=== PATIENT | female | born 1940 | race Caucasian/White ===

== ENCOUNTER 2018-11-25 16:51 | Inpatient (IN) ==
[2018-11-25] MEDS ORDERED: LEVAQUIN 750 MG/D5W 750 MG/150 ML IVPB IV ONE (18:08)
[2018-11-25] MEDS ORDERED: NS 1,000 ML IV ONE (18:08)
[2018-11-25] MEDS ORDERED: VANCOMYCIN 1 GM/NS 1 GM/250 ML IVPB IV ONE (18:08)
[2018-11-25] MEDS ORDERED: ZOSYN 3.375 GM in NS 50 ML IV ONE (18:08)
[2018-11-25] MEDS ORDERED: DUONEB (A & A) INH ONE (18:08)
[2018-11-25] MEDS ORDERED: SOLU-MEDROL IV ONE (18:09)
--- NOTE | 2018-11-25 18:30 | PROVIDER DOCUMENTATION ---
This chart was entered by Tomas Lin Scribe, acting as scribe for Behzad Calle MD. HPI-Respiratory General - General Chief Complaint: Cough Stated Complaint: COUGHING,RT LUNG PAIN Time Seen by Provider: 11/25/18 17:25 Source: patient Allergies/Adverse Reactions: Patient Allergies Allergy/AdvReac Type Severity Reaction Status Date / Time naproxen [From Aleve] Allergy Severe comatose Verified 01/27/18 22:33 Home Medications: Home Medication List Medication Instructions Recorded Confirmed Last Taken Type ROSUVAstatin [Crestor] 10 mg PO DAILY 08/28/17 10/04/18 02/05/18 02:00 History 10 Letrozole 1 tab PO DAILY 04/21/18 10/04/18 04/20/18 09:00 History Escitalopram [Lexapro] 10 mg PO DAILY 09/29/18 10/04/18 Unknown History BENAZEpril [Lotensin] 10 mg PO BID tablet 10/02/18 10/04/18 Unknown Rx Guaifenesin/Dm E.r. [Mucinex Dm] 1 each PO BID tablet 10/02/18 10/04/18 Unknown Rx Acetaminophen [Tylenol] 650 mg PO Q6H PRN PRN tablet 10/08/18 Unknown Rx Acetylcysteine 20% [Mucomyst 20%] 3 ml INH RTBID 14 Days vial 10/08/18 Unknown Rx Albuterol 2.5MG/Ipratrop 0.5MG 3 ml INH RTQ6H neb 10/08/18 Unknown Rx [Duoneb (A & A)] Baclofen 10 mg PO TID #0 10/08/18 10/04/18 Unknown Rx Enoxaparin [Lovenox] 30 mg SUBQ Q24H #3 syringe 10/08/18 Unknown Rx Gabapentin 300 mg PO BID #60 10/08/18 10/04/18 Unknown Rx Prednisone 15 mg PO DAILY tablet 10/08/18 Unknown Rx Sitagliptin [Januvia] 100 mg PO DAILY tablet 10/08/18 Unknown Rx - History of Present Illness-Resp Nature of Presenting Problem: Pt is a 78 y/o F comes to the ED from Dr Rendon with failed outpatient treatment for pneumonia. Pt has been taking doxycycline. She was hospitalized 2 months ago for pneumonia. Pt reports she had a CT of chest today and sent from outpatient CT to the ED for admission. Pt reports a cough and fever. She reports a hx of breast cancer but reports she is cancer free. She aslo reports a ECHO by Dr Fu done the day before. Quality of Pain: reports: aching Severity in ED: reports: moderate Onset/Duration: reports: gradual Timing: reports: still present Cough Quality/Degree: reports: productive cough Episode Frequency: no prior episodes Current Respiratory Medication Therapy: Initiated see nurses note Modifying Factors: improves with: nothing Associated Symptoms: reports: cough, fever/chills, shortness of breath, sweaty Similar Symptoms Previously?: Yes Recently seen or treated by another doctor?: Yes (Dr Lopes and Harvey) Review of Systems - Adult - REVIEW OF SYSTEMS - ADULT Constitutional: reports: fever. denies: chills Eyes: reports: no symptoms reported Ears, Nose, Mouth & Throat: denies: ear pain Cardiovascular: denies: chest pain, edema, palpitations Respiratory: reports: cough, shortness of breath. denies: wheezing Gastrointestinal: denies: abdominal pain, nausea, vomiting Genitourinary: reports: incontinence. denies: dysuria, discharge Musculoskeletal: denies: back pain, neck pain Integumentary: reports: no symptoms reported Neurological: denies: dizziness/vertigo, headache/migraines Psychiatric: reports: no symptoms reported Endocrine: reports: no symptoms reported Hematologic/Lymphatic: reports: no symptoms reported Allergic/Immunologic: reports: no symptoms reported All Other Systems: Reviewed and Negative Past History - Adult - PAST MEDICAL HISTORY-ADULT Review of Records: reports: Old Records Reviewed, Nursing Assessment Review, Medications Reviewed Major Childhood Illnesses: reports: denies history Cardiovascular: reports: HTN Respiratory: reports: COPD Gastrointestinal: reports: denies history Obstetrical/Gynecological: reports: denies history Genitourinary: reports: denies history Musculoskeletal: reports: denies history Neurological: reports: denies history Endocrine/Immune: reports: Diabetes Other Conditions: reports: denies history - PRIOR SURGERIES/PROCEDURES Surgical/Procedure History: reports: breast, other (pelvis fx) - IMMUNIZATION STATUS Childhood Immunizations: See Nurse Assessment Flu Vaccine: See Nurse Assessment - FAMILY HISTORY Family History: reviewed, not pertinent - SOCIAL HISTORY Smoking: non-smoker, chew (snuff) Substance Use: none/never Living Situation: family Physical Exam-General - PHYSICAL EXAM-ADULT Initial Vital Signs Reviewed: Yes - CONSTITUTIONAL General Appearance: alert, no apparent distress - EYES Eyes: PERRL/EOMI, pink conjunctivae - HEAD, EARS, NOSE, MOUTH & THROAT HENMT: moist mucous membranes, normal ENT inspection, pharynx normal - NECK Neck: non-tender, full range of motion, supple, normal inspection - RESPIRATORY Respiratory: chest non-tender, rhonchi (all fiends), wheezing (mild expiratory) , increased rate - CARDIOVASCULAR Cardiovascular: normal peripheral pulses, regular rate, rhythm - GASTROINTESTINAL (ABDOMEN) Abdominal Exam: normal bowel sounds, non tender, soft - MUSCULOSKELETAL Back Exam: normal inspection, no CVA tenderness, no vertebral tenderness Extremity: non-tender, no pedal edema. negative: normal gait (wheel chair confined) - SKIN Integumentary: normal color, normal turgor, warm/dry - NEUROLOGIC Neurologic: grossly normal, no motor/sensory deficits - PSYCHIATRIC Psych/Mental Status: normal mood/affect, normal thought content, normal thought process, oriented x 3 Progress - PLAN OF CARE/RESULTS Progress/Plan/Lab Results: Vital Signs - 8 hr 11/25/18 17:19 11/25/18 18:37 11/25/18 19:41 Temperature 97.8 F Pulse Rate 86 86 87 Respiratory Rate 18 20 22 Blood Pressure 157/63 168/73 O2 Sat by Pulse Oximetry 88 L 88 L 92 L 11/25/18 18:21 Influenza Screen - Final Nasopharyngeal Laboratory Results - last 24 hr 11/25/18 11/25/18 11/25/18 18:25 18:27 18:27 WBC 9.88 RBC 5.11 Hgb 13.4 Hct 43.0 MCV 84.1 MCH 26.2 L MCHC 31.2 L RDW Std Deviation 14.7 H Plt Count 197 MPV 10.4 Immature Gran % (Auto) 0.3 Neut % (Auto) 63.1 Lymph % (Auto) 25.8 [place] % (Auto) 9.0 Eos % (Auto) 1.1 Baso % (Auto) 0.7 Immature Gran # (Auto) 0.03 Neut # (Auto) 6.23 Lymph # (Auto) 2.55 [place] # (Auto) 0.89 H Eos # (Auto) 0.11 Baso # (Auto) 0.07 PT INR Specimen Type ARTERIAL Sample Site L RADIAL pH 7.43 pCO2 47 H pO2 56 L HCO3 29.2 H Base Excess 5.8 H Oxyhemoglobin 88.9 L* ABG O2 Sat (Calculated) 17.2 ABG O2 Saturation 91.6 L ABG Carboxyhemoglobin 1.70 ABG Methemoglobin 1.2 Buzz Test YES A-a O2 Difference 35.0 Total Hemoglobin 13.8 Lactate 2.90 H Blood Gas Modality ROOM AIR FiO2 % 21.0 Sodium 140 Potassium 4.5 Chloride 99 Carbon Dioxide 25 Anion Gap 16 BUN 18 Creatinine 0.5 Estimated GFR/1.73 m2 > 60 BUN/Creatinine Ratio 36 Glucose 106 H Calculated Osmolality 282 Calcium 9.7 Magnesium 1.7 Total Bilirubin 0.26 AST 15 ALT 8 L Alkaline Phosphatase 86 Creatine Kinase 40 Troponin T Bvr-P-Quzzttydtey Pept Total Protein 7.3 Albumin 4.5 Globulin 2.8 Albumin/Globulin Ratio 1.6 Plasma Lactate 11/25/18 11/25/18 11/25/18 18:27 18:27 18:27 WBC RBC Hgb Hct MCV MCH MCHC RDW Std Deviation Plt Count MPV Immature Gran % (Auto) Neut % (Auto) Lymph % (Auto) [place] % (Auto) Eos % (Auto) Baso % (Auto) Immature Gran # (Auto) Neut # (Auto) Lymph # (Auto) [place] # (Auto) Eos # (Auto) Baso # (Auto) PT 13.0 INR 0.91 Specimen Type Sample Site pH pCO2 pO2 HCO3 Base Excess Oxyhemoglobin ABG O2 Sat (Calculated) ABG O2 Saturation ABG Carboxyhemoglobin ABG Methemoglobin Buzz Test A-a O2 Difference Total Hemoglobin Lactate Blood Gas Modality FiO2 % Sodium Potassium Chloride Carbon Dioxide Anion Gap BUN Creatinine Estimated GFR/1.73 m2 BUN/Creatinine Ratio Glucose Calculated Osmolality Calcium Magnesium Total Bilirubin AST ALT Alkaline Phosphatase Creatine Kinase Troponin T Upv-D-Pujqyphssmy Pept 1933 H Total Protein Albumin Globulin Albumin/Globulin Ratio Plasma Lactate 2.6 H 11/25/18 18:27 WBC RBC Hgb Hct MCV MCH MCHC RDW Std Deviation Plt Count MPV Immature Gran % (Auto) Neut % (Auto) Lymph % (Auto) [place] % (Auto) Eos % (Auto) Baso % (Auto) Immature Gran # (Auto) Neut # (Auto) Lymph # (Auto) [place] # (Auto) Eos # (Auto) Baso # (Auto) PT INR Specimen Type Sample Site pH pCO2 pO2 HCO3 Base Excess Oxyhemoglobin ABG O2 Sat (Calculated) ABG O2 Saturation ABG Carboxyhemoglobin ABG Methemoglobin Buzz Test A-a O2 Difference Total Hemoglobin Lactate Blood Gas Modality FiO2 % Sodium Potassium Chloride Carbon Dioxide Anion Gap BUN Creatinine Estimated GFR/1.73 m2 BUN/Creatinine Ratio Glucose Calculated Osmolality Calcium Magnesium Total Bilirubin AST ALT Alkaline Phosphatase Creatine Kinase Troponin T < 0.010 Yri-S-Sqsjyfpuahm Pept Total Protein Albumin Globulin Albumin/Globulin Ratio Plasma Lactate Orders Category Date Time Status Saline Loc NOW Care 11/25/18 17:58 Active CHEST-PORTABLE [RAD] Stat Exams 11/25/18 17:59 Completed ABG [RESP] Routine Lab 11/25/18 18:25 Completed BLOOD CULTURE [BLDCUL] Stat Lab 11/25/18 18:32 Results CBC WITH ELECTRONIC DIFF [HEME] Stat Lab 11/25/18 18:27 Completed CK PROFILE [SP CHEM] Stat Lab 11/25/18 18:27 Completed COMPREHENSIVE METABOLIC PANEL [CHEM] Stat Lab 11/25/18 18:27 Completed INFLUENZA SCREEN A/B Stat Lab 11/25/18 18:21 Completed LACTATE, PLASMA [CHEM] Stat Lab 11/25/18 18:27 Completed MAGNESIUM [CHEM] Stat Lab 11/25/18 18:27 Completed PRO B-NATRIURETIC PEPTIDE Stat Lab 11/25/18 18:27 Completed PROTIME WITH INR [COAG] Stat Lab 11/25/18 18:27 Completed TROPONIN T Stat Lab 11/25/18 18:27 Completed URINALYSIS W/POSS RFLX CULT [URINALYSIS] Stat Lab 11/25/18 17:59 Uncollected 0.9% Sodium Chloride Inj [Ns] 1,000 ml Med 11/25/18 18:08 Discontinued IV 999 mls/hr Albuterol 2.5MG/Ipratrop 0.5MG [Duoneb (A & A)] Med 11/25/18 18:08 Discontinued 9 ml INH NOW ONE Levofloxacin 750 mg/D5w [Levaquin 750 mg/D5w] Med 11/25/18 18:08 Discontinued 750 mg in 150 ml IV NOW Methylprednisolone Sod Succ [Solu-Medrol] Med 11/25/18 18:09 Discontinued 125 mg IV NOW ONE Piperacillin/Tazobactam [Zosyn] 3.375 gm Med 11/25/18 18:08 Discontinued 0.9% Sodium Chloride Inj [Ns] 50 ml IV NOW Vancomycin 1 gm/Ns Med 11/25/18 18:08 Discontinued 1 gm in 250 ml IV NOW Aerosol Treatments Routine Oth 11/25/18 18:09 Completed Aerosol Treatments Stat Oth 11/25/18 18:09 Completed Oxygen Device Stat Oth 11/25/18 18:09 Completed EKG [EKG] Stat Ther 11/25/18 17:58 Ordered Result Diagrams: 11/25/18 18:27 11/25/18 18:27 - EKG 1 Time of EKG reading by physician:: 19:56 EKG Read and Signed by:: Zack Perez EKG Interpretation (*Must complete 3 of following elements*): Abnormal ( Borderline ECG) Rate: 82 Rhythm: NSR Comments: Possible left atrial enlargement - XRAY 1 XRAY Study: Chest Impression: Normal (INDICATION: pneumonia TECHNIQUE: One view COMPARISON: FINDINGS: There is evidence of prior granulomatous disease, stable. The lungs are grossly clear. There is no discrete pleural fluid collection or pneumothorax. The cardiomediastinal silhouette and central vasculature are grossly unremarkable. IMPRESSION: No evidence of acute pathology by plain radiograph. Electronically signed by Wilber Ayers 11/25/2018 6:43 PM [id number]) - CONSULTS/PCP/HOSPITALIST Notification #1 *Consult/PCP/Hospitalist*: Hospitalist- Dr Rose Time Discussed: 20:11 Reason/Comments: admission Consult Disposition: Will see in ED - CHANGE OF SHIFT REPORT (ED Provider) Report Given and Care Transferred to:: Dr Perez Time of Transfer: 19:00 (admission) Items Pending: Labs, XRAY Results Departure - Departure Date of Disposition Decision: 11/25/18 Time of Disposition Decision: 19:53 DIAGNOSIS: COPD with exacerbation, Hypoxemia Pneumonia Qualifiers: Pneumonia type: due to unspecified organism Laterality: right Lung location: middle lobe of lung Qualified Code(s): J18.1 - Lobar pneumonia, unspecified organism Disposition: ADMITTED INPATIENT 09 Certified Medical Emergency: Emergent Condition: Poor Referrals and Follow-Ups: Mike Gonsalves MD [Primary Care Provider] - - Critical Care Note This patient required my direct & personal management of CC.: No Attestation - Physician/ KORY Attestation Patient care was provided by Advanced Practice Provider:: No The physician spent face to face time with patient:: Yes Advanced Practice Provider documentation review:: Supervising physician onsite and consulted in the evaluation and care of this patient. The physician did have a face to face encounter with the patient. This chart was documented by the indicated scribe, (Tomas Lin Scribe) and accurately reflects the services I performed and decisions made by me, Behzad Calle MD, as attested by the provider's signature.
[2018-11-25 18:36] LABS: ALLEN TEST YES; BE 5.8 mmoll (-3.0-3.0); BLOOD TYPE ARTERIAL; HCO3-(ACT) 29.2 mmoll (20.0-26.0); METHB 1.2 % (0.0-1.5); O2(CT) 17.2 mL/dL (15.0-23.0); PCO2(98.6) 47 mmHg (35-45); PO2(98.6) 56 mmHg (60-100); SAMPLE BLOOD; SAO2 91.6 % (95.0-100.0); THB 13.8 g/dL (11.5-17.4); pH(98.6) 7.43 (7.35-7.45)
[2018-11-25 18:39] LABS: MODALITY ROOM AIR
[2018-11-25 18:41] LABS: O2HB 88.9 % (95.0-99.0)
--- NOTE | 2018-11-25 18:46 | Diag Imaging Result Doc PS360 ---
EXAM: CHEST-PORTABLE INDICATION: pneumonia TECHNIQUE: One view COMPARISON: 10/04/2018 FINDINGS: There is evidence of prior granulomatous disease, stable. The lungs are grossly clear. There is no discrete pleural fluid collection or pneumothorax. The cardiomediastinal silhouette and central vasculature are grossly unremarkable. IMPRESSION: No evidence of acute pathology by plain radiograph. Electronically signed by Wilber Ayers 11/25/2018 6:43 PM
[2018-11-25 18:48] LABS: BASO# 0.07 X1000 (0.0-0.2); BASO% 0.7 % (0.0-0.8); EOS# 0.11 X1000 (0.0-0.7); EOS% 1.1 % (0.0-10.0); HEMOGLOBIN 13.4 g/dL (12.0-16.0); IMM GRAN# 0.03 X1000 (0.0-0.04); IMM GRAN% 0.3 % (0.0-0.5); LYMPH# 2.55 X1000 (1.2-3.4); LYMPH% 25.8 % (20.5-51.1); MCH 26.2 PG (27-31); MCHC 31.2 g/dL (33-37); MCV 84.1 FL (81-99); MONO# 0.89 X1000 (0.11-0.59); MPV 10.4 FL (7.4-10.4); NEUT# 6.23 X1000 (1.4-6.5); NEUT% 63.1 % (42.2-75.2); PLT 197 X1000 (130-400); RBC 5.11 XMIL (4.2-5.4); RDW 14.7 % (11.5-14.5); WBC 9.88 X1000 (4.8-10.8)
[2018-11-25 19:04] LABS: INR 0.91
[2018-11-25 19:12] LABS: AGAP 16; ALB/GLOB RATIO 1.6; ALBUMIN 4.5 g/dL (3.5-5.0); ALKALINE PHOSPHATASE 86 U/L (32-104); BUN 18 mg/dL (8-22); CALCIUM 9.7 mg/dL (8.8-10.2); CHLORIDE 99 mmol/L (98-107); CK PROFILE 40 U/L (24-173); COSMO 282; CREATININE 0.5 mg/dL (0.5-0.9); ESTIMATED GFR > 60; GLUCOSE 106 mg/dL (70-104); GOT 15 U/L (10-30); GPT 8 U/L (10-36); MAGNESIUM 1.7 mg/dL (1.5-2.7); POTASSIUM 4.5 mmol/L (3.5-5.1); SODIUM 140 mmol/L (136-145); TCO2 25 mmol/L (25-35); TOTAL BILIRUBIN 0.26 mg/dL (0.20-1.00); TOTAL PROTEIN 7.3 g/dL (6.3-8.3)
[2018-11-25] MEDS ORDERED: ZOFRAN IV PRN (23:24)
[2018-11-25] MEDS ORDERED: DUONEB (A & A) INH PRN (23:24)
[2018-11-25] MEDS ORDERED: VANCOMYCIN IV PER PHARMACY MISC SCH (23:24)
[2018-11-25] MEDS ORDERED: TYLENOL PO PRN (23:24)
[2018-11-25] MEDS: DUONEB (A & A) INH SCH (23:40)
[2018-11-26] MEDS: PROTONIX IV SCH (00:40)
[2018-11-26] MEDS: ZOSYN 3.375 GM in NS 50 ML IV SCH ×5 (00:40→20:12)
[2018-11-26 02:16] LABS: URINE SOURCE CLEAN CATCH
[2018-11-26 02:19] LABS: BILIRUBIN URINE NEGATIVE (NEGATIVE); BLOOD URINE TRACE (NEGATIVE); COLOR YELLOW; GLUCOSE URINE NEGATIVE (NEGATIVE); KETONE URINE NEGATIVE (NEGATIVE); LEUKOCYTES URINE NEGATIVE (NEGATIVE); NITRITE URINE NEGATIVE (NEGATIVE); PROTEIN URINE TRACE mg/dL (NEGATIVE); SP GRAVITY URINE 1.028; TURBIDITY URINE CLEAR (CLEAR); UROBILINOGEN URINE NORMAL (NORMAL)
[2018-11-26 02:21] LABS: UR EPITHELIAL CELLS <10 /HPF (<10); URINE BACTERIA NEGATIVE /HPF; URINE RBC <10 /HPF (<10); URINE WBC <10 /HPF (<10)
--- NOTE | 2018-11-26 03:02 | HISTORY AND PHYSICAL ---
CHIEF COMPLAINT: Shortness of breath. HISTORY OF PRESENT ILLNESS: She is an 78-year-old female with a history of breast cancer. As far as I can tell, that has been in control. She is a patient of Dr. Gonsalves. She has had some significant shortness of breath and coughing. She was actually here in September and admitted at that time. She has had a couple courses of this previously. She is wheelchair bound so she has difficulty expectorating. She does say she has COPD but is not on home oxygen. She has had no persistence in her symptoms. She had admission twice in September, the and the , and then I think she came to see Dr. Rendon today. A CT was done which showed bronchiectasis of the right lung with bronchial mucus plugging in both the right and left lungs. She does admit to persistent difficulty breathing. She was hypoxemic last time, requiring positive-pressure ventilation but at this point, she is not that ill, although she is somewhat hypoxic. She states that she is not usually on oxygen but she may require oxygen long-term. The patient was seen by Dr. Rendon, had a CT, and then she was sent to the ER for admission per Dr. Rendon. She has been on doxycycline apparently, per Dr. Rendon's notes. She has bronchiectasis noted today. That being said, probably bronchiectasis make sense in the setting of persistent infection not really ever clearing in the setting of COPD. PAST MEDICAL HISTORY: 1. Again, COPD. 2. She reports diabetes type 2. 3. Hypertension. 4. History of breast cancer, status post right mastectomy. It is hormone receptor positive and she is on chronic therapy. 5. 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 6. GERD. PAST SURGICAL HISTORY: 1. Says she has had a stent. 2. She had a right mastectomy, which was a radical axillary mastectomy. 3. Hysterectomy. 4. Per her echocardiogram, she has had an aortic valve replacement. She did mention that to me in the history so I am not sure but based on the echocardiogram report, but she has had it because she has critical aortic stenosis. SOCIAL HISTORY: Says lifetime nonsmoker, although has had significant smoking exposure previously. No alcohol. She lives, she states, alone but a daughter I think checks on her frequently. FAMILY HISTORY: She has had 3 children pass from cancer, 1 from head and neck cancer and 2 from brain and [employer] cancer, but I am not sure if that was metastatic disease. ALLERGIES: Naproxen. MEDICATIONS: Her current medication list has not been verified but Lexapro 10, letrozole 2.5 daily, Crestor 10 daily, acetaminophen, Mucomyst, DuoNebs, baclofen, Lotensin, Lovenox, gabapentin, Mucinex, prednisone, and Januvia. REVIEW OF SYSTEMS: She reports weight loss which looks like maybe around 10 pounds, possibly more. No chest pain. Otherwise, negative times a 10 point review of systems. PHYSICAL EXAMINATION: VITAL SIGNS: Blood pressure 168/73, heart rate of 80, respiratory rate of 19, temperature was 97.8 degrees, 94% on 2 L, I believe, she was 88 when she came in, on room air. GENERAL: A thin female, in no acute distress. HEENT: Head Examination: Normocephalic and atraumatic. Eye Examination : Pupils equal, round, reactive to light. Extraocular movements were intact. Sclerae were anicteric. Ears, Nose, and Throat Examination: She had moist mucous membranes. She is edentulous. She does use snuff, oral tobacco. CARDIOVASCULAR: Regular rate and rhythm. PULMONARY: She had diffuse rhonchi. No real wheezing. GI: Soft, nontender, nondistended. Bowel sounds were positive. NEUROLOGIC: Cranial nerves 2-12 were grossly intact. She has limited mobility in her extremities. Her right upper extremity, she was a 3/5. I could not really get more than a 1-2/5 in her left lower extremity. She is wheelchair bound since her diagnosis of breast cancer, although it is not clear that she had metastatic disease to her spine. SKIN: Unremarkable. She has several suspicious kind of actinic lesions on her face. LABORATORY DATA: Her white count is 9, hemoglobin and hematocrit 13 and 43, platelets 197,000. Chemistries look okay, really unremarkable. Troponin was negative. ProBNP was mildly elevated. Plasma lactate was a bit elevated. ASSESSMENT: This is an 78-year-old female with a history of chronic obstructive pulmonary disease and breast cancer who presents with recurrent pneumonia which looks like bronchiectasis with mucus plugging. 1. Bronchiectasis. We will initiate broad spectrum antibiotics, something to cover DuoNebs and gram-negative type pneumonia. I will go ahead and get a pulmonary consult. I think Dr. Vigil has seen her last admission. Continue aggressive pulmonary toilet. 2. History of breast cancer. Aware. We will let Dr. Rendon know she is here since she was directly admitted per his service. 3. Chronic obstructive pulmonary disease exacerbation. We will do some mild steroids. She is not wheezing significantly and will have to watch steroid use in the setting of her diabetes which it leads to the next problem. 4. Diabetes type 2. We will continue to monitor blood sugars, check an A1c. Continue sliding scale insulin and follow. 5. History of coronary artery disease, aortic stenosis. We will continue to monitor. As far as I can tell, her prosthetic valve is not mechanical. She is not on any chronic anticoagulants but she is at risk for deep venous thrombosis so we will do deep venous thrombosis prophylaxis and initially gastrointestinal prophylaxis as well. Dr. Gonsalves is her primary doctor and will resume care in the morning. cc: MD Mike Mckeon MD
[2018-11-26] MEDS: SOLU-MEDROL IV SCH ×2 (05:56→17:44)
[2018-11-26] MEDS: LOVENOX SUBQ SCH (05:56)
[2018-11-26 06:22] LABS: BASO# 0.01 X1000 (0.0-0.2); BASO% 0.2 % (0.0-0.8); HEMATOCRIT 38.6 % (37.0-47.0); HEMOGLOBIN 12.1 g/dL (12.0-16.0); LYMPH# 1.03 X1000 (1.2-3.4); LYMPH% 17.1 % (20.5-51.1); MCH 26.5 PG (27-31); MCHC 31.3 g/dL (33-37); MCV 84.5 FL (81-99); MONO# 0.31 X1000 (0.11-0.59); MONO% 5.1 % (1.7-9.3); MPV 10.6 FL (7.4-10.4); NEUT# 4.67 X1000 (1.4-6.5); NEUT% 77.6 % (42.2-75.2); PLT 189 X1000 (130-400); RBC 4.57 XMIL (4.2-5.4); RDW 14.5 % (11.5-14.5); WBC 6.02 X1000 (4.8-10.8)
[2018-11-26 06:38] LABS: AGAP 11; ALB/GLOB RATIO 1.9; ALBUMIN 4.2 g/dL (3.5-5.0); ALKALINE PHOSPHATASE 76 U/L (32-104); BUN 13 mg/dL (8-22); CALCIUM 8.7 mg/dL (8.8-10.2); CHLORIDE 101 mmol/L (98-107); COSMO 283; CREATININE 0.5 mg/dL (0.5-0.9); ESTIMATED GFR > 60; GLUCOSE 221 mg/dL (70-104); GOT 12 U/L (10-30); GPT 7 U/L (10-36); POTASSIUM 3.9 mmol/L (3.5-5.1); SODIUM 138 mmol/L (136-145); TCO2 26 mmol/L (25-35); TOTAL BILIRUBIN 0.28 mg/dL (0.20-1.00); TOTAL PROTEIN 6.4 g/dL (6.3-8.3)
[2018-11-26] MEDS ORDERED: VANCOMYCIN IV PER PHARMACY MISC SCH (06:45)
--- NOTE | 2018-11-26 07:24 | PROGRESS NOTE ---
DATE: 11/26/2018 SUBJECTIVE: Ms. Macias is doing fair. Her breathing seems to be improving. Mild cough. No significant expectoration. She denied any high-grade fever or chills. No nausea or vomiting. Blood pressure was elevated. The patient admitted with chest congestion, cough, shortness of breath. The patient went to see her oncologist yesterday. The patient was complaining of cough. The patient was called back and she was advised to come to the emergency room for further evaluation. The patient claims she had cream-colored expectoration, wheezing, some shortness of breath. The patient is vague and a poor historian. Admission history and physical noted. No dysuria or hematuria. No typical chest pain. OBJECTIVE: Vital Signs: Blood pressure 177/77, pulse 85, respiration 18, temperature 97.7, O2 saturation was 93%. Skin: Senile turgor. Neck supple. No JVD. Lungs: Bibasilar crepitations. CVS: S1 and S2 heard; 2/6 systolic murmur at the apex. Abdomen soft, nontender. Bowel sounds present. The patient does have flexion contracture of her right leg. LAYER OFF: Alert, awake, answering questions fairly well. LABORATORY DATA: Lab data done today: WBC count 6.02, hemoglobin 12.1, hematocrit 38.6, platelet count 189,000. Blood gas done on admission: pH 7.43, pCO2 of 47, PO2 was 56. Electrolytes fairly benign. Blood sugar was 221. Her proBNP was 1933. CONSIDERATION: 1. Acute exacerbation of chronic obstructive pulmonary disease. 2. Bronchiectasis. 3. Diabetes mellitus. 4. History of breast cancer. 5. Hypertension. 6. History of possible cerebrovascular accident with right-sided weakness. PLAN: Admit the patient. Bronchodilator treatment, pulmonary toilet, IV antibiotics, monitor Accu-Chek, small dose of steroid. Overall plan discussed with the patient, and she is in agreement. cc: Mike Gonsalves MD
[2018-11-26] MEDS: DUONEB (A & A) INH SCH ×5 (07:50→23:33)
--- NOTE | 2018-11-26 08:00 | EKG Report ---
Test Performed on : 11/25/2018 7:56:31 PM Test Reason : sob Blood Pressure : / mmHG Vent. Rate : 082 BPM Atrial Rate : 082 BPM P-R Int : 128 ms QRS Dur : 094 ms QT Int : 420 ms P-R-T Axes : 078 021 067 degrees QTc Int : 490 ms Normal sinus rhythm. Possible Left atrial enlargement Borderline ECG When compared with ECG of 04-OCT-2018 02:22, Questionable change in QRS axis QT has lengthened Unconfirmed Result
--- NOTE | 2018-11-26 08:31 | Diag Imaging Result Doc PS360 ---
EXAM: CHEST-2 VIEWS 11/26/2018 HISTORY: mucus plugging TECHNIQUE: PA and lateral chest COMMENT: There is a TAVR. There are calcified granulomatous nodes in both dariusz. There may be COPD. There is a calcified nodule in the right lower lobe medially and in the left breast. No evidence of significant atelectasis or mucous plugging is present. There has been no significant change since 11/25/2018. IMPRESSION: No evidence of acute disease. Electronically signed by Clark Srivastava 11/26/2018 8:28 AM
[2018-11-26] MEDS: NEURONTIN PO SCH ×2 (09:42→20:12)
[2018-11-26] MEDS: LIORESAL PO SCH ×2 (09:42→20:12)
[2018-11-26] MEDS: MUCINEX DM PO SCH ×2 (09:42→20:12)
[2018-11-26] MEDS: LEXAPRO PO SCH (09:42)
[2018-11-26] MEDS: CRESTOR PO SCH (09:43)
[2018-11-26] MEDS: FEMARA PO SCH (09:51)
[2018-11-26] MEDS: LOTENSIN PO SCH ×2 (09:51→20:12)
[2018-11-26] MEDS: MUCOMYST 20% INH SCH ×2 (11:34→19:23)
[2018-11-26] MEDS: LEVAQUIN 750 MG/D5W 750 MG/150 ML IVPB IV SCH (17:44)
[2018-11-27] MEDS: PROTONIX IV SCH ×2 (01:09→23:39)
[2018-11-27] MEDS: SODIUM CHLORIDE 0.9% INJ SCH ×2 (01:09→23:39)
[2018-11-27] MEDS: ZOSYN 3.375 GM in NS 50 ML IV SCH ×4 (01:10→21:47)
--- NOTE | 2018-11-27 03:15 | CONSULTATION ---
DATE OF CONSULTATION: 11/26/2018 REQUESTING PROVIDER: Dr. Fischer. REASON FOR CONSULTATION: Bronchiectasis and mucus plugging. HISTORY OF PRESENT ILLNESS: This is an 78-year-old female with a medical history of critical aortic stenoses, chronic oral tobacco use, history of small solitary pulmonary nodule, bronchiectasis, hypertension, hyperlipidemia, diabetes mellitus, breast cancer, osteoarthritis, gastroesophageal reflux disease, and history of basal cell carcinoma. She presented to the ER from Dr. Rendon's office yesterday with failed outpatient treatment for pneumonia. She has been taking doxycycline. She was last admitted from 10/04/2018 to 10/09/2018 with bronchiectasis exacerbation and acute respiratory failure. She has been admitted to the medical floor for further evaluation and management. At the time of my examination the patient is resting comfortably in the bed on room air. She states she is not feeling that bad. She reports chronic productive cough with white thick sputum. She also reports fever, chest congestion with right chest pain which is worse with deep breathing and cough. She denies nausea, vomiting, constipation, diarrhea, headache, or palpitations. PAST MEDICAL/SURGICAL HISTORY: 1. Critical aortic stenosis status post TAVR placement. 2. Chronic oral tobacco use. 3. Small solitary pulmonary nodule. 4. Bronchiectasis with mucous plugging, which was revealed by the CTPA on 2017. 5. Hypertension. 6. Hyperlipidemia. 7. Diabetes mellitus type 2. 8. Breast cancer status post right mastectomy. 9. Osteoarthritis. 10. Gastroesophageal reflux disease. 11. History of basal cell carcinoma. 12. Status post cataract removal. 13. Status post repair of broken arm. 14. Status post tubal ligation. SOCIAL HISTORY: Currently lives in a rehab. No inhaled tobacco. Used oral tobacco for a long time. No alcohol or illicit drug use. FAMILY HISTORY: Positive for cancer and heart disease. ALLERGIES: Naproxen. REVIEW OF SYSTEMS: A 10-point review of systems was conducted and the pertinent is listed within the HPI, otherwise noncontributory. PHYSICAL EXAMINATION: Vital Signs: Temperature 98.5 degrees, blood pressure 162/73, pulse 74, respiratory rate 18, oxygen saturation 94% on room air. General: Skinny, pleasant female resting comfortably in bed, and no acute distress noted. HEENT: Atraumatic. Trachea midline. Mucosa pink and dry. Respiratory: Diminished breathing sounds bibasilarly, worse on the right side with rhonchi, prolonged expiratory phase and mild wheezing noted. Cardiovascular: Regular rate and rhythm with murmur noted. Gastrointestinal: Normoactive bowel sounds in all 4 quadrants. Soft, nontender and nondistended. Extremities: No pedal edema, cyanosis or clubbing. Dorsalis pedis 1+ bilateral. Neurologic: Alert and oriented x3. Speech fluent. Follows commands. Answers questions properly. IMAGING DATA: Chest x-ray revealed no evidence of acute disease. LABORATORY DATA: White blood cells 6.02, hemoglobin 12.1, hematocrit 38.6, platelet 189,000. Sodium 138, potassium 3.9, chloride 101, carbon dioxide 26, BUN 13, creatinine 0.5, glucose 221. ASSESSMENT AND PLAN: This is an 78-year-old female with a medical history of critical aortic stenosis, chronic oral tobacco use, small solitary pulmonary nodule, bronchiectasis, hypertension, hyperlipidemia, diabetes mellitus, breast cancer, osteoarthritis, gastroesophageal reflux disease, and basal cell carcinoma. She has been admitted directly from Dr. Rendon's office with chronic obstructive pulmonary disease exacerbation and bronchiectasis with mucus plugging. 1. Chronic obstructive pulmonary disease exacerbation. Lab on 10/07/2018 ruled out immunoglobulin deficiency. Continue supplemental oxygen as needed and consider BiPAP if indicated. Continue antibiotics, steroids and bronchodilators as prescribed. Follow up with chest x-ray and sputum culture. Check ABG if indicated. 2. Bronchiectasis with mucous plugging. Continue bronchodilators and mucolytics. Continue aggressive pulmonary toilet. Recommend nebulizer treatment 4 times daily at the time of discharge to help with bronchial hygiene. 3. Continue gastrointestinal an deep venous thrombosis prophylaxis. Thank you for the courtesy of this consultation. Dictated by HUMA Blake for Nelly Mason MD cc: HUMA Blake MD Bharat K. Vakharia, MD [facility] HOSPITALGerard
[2018-11-27] MEDS: LOVENOX SUBQ SCH (05:36)
[2018-11-27] MEDS: SOLU-MEDROL IV SCH ×2 (05:36→18:02)
--- NOTE | 2018-11-27 07:26 | PROGRESS NOTE ---
DATE: 11/27/2018 SUBJECTIVELY: Ms. Macias is doing better. She still has cough and chest congestion. No nausea or vomiting. Oral intake is good. No typical chest pain. Denied any diarrhea. OBJECTIVE: Vital signs: Reviewed. Neck: Supple. No JVD. Lungs: Bilateral occasional wheezing. CVS: S1 and S2 heard. Abdomen: Soft. No distention. Bowel sounds present. 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 Patient does have spasticity, both lower limbs. LAB DATA: Done yesterday noted. PATIENT'S PROBLEMS: 1. Chronic obstructive pulmonary disease exacerbation. 2. Bronchiectasis. 3. Mucous plugging. 4. Diabetes mellitus. 5. Hypertension. 6. History of breast cancer. PLAN: I am going to taper her steroid. Continue rest of the treatment and close observation. Physical therapy evaluation. cc: Mike Gonsalves MD
[2018-11-27] MEDS: FEMARA PO SCH (08:05)
[2018-11-27] MEDS: LIORESAL PO SCH ×2 (08:05→20:32)
[2018-11-27] MEDS: LEXAPRO PO SCH (08:05)
[2018-11-27] MEDS: NEURONTIN PO SCH ×2 (08:05→20:33)
[2018-11-27] MEDS: LOTENSIN PO SCH ×2 (08:05→20:32)
[2018-11-27] MEDS: CRESTOR PO SCH (08:06)
[2018-11-27] MEDS: MUCOMYST 20% INH SCH ×2 (08:12→19:42)
[2018-11-27] MEDS: DUONEB (A & A) INH SCH ×5 (08:12→23:12)
[2018-11-27] MEDS: MUCINEX DM PO SCH ×2 (08:16→21:07)
[2018-11-27] MEDS: LEVAQUIN 750 MG/D5W 750 MG/150 ML IVPB IV SCH (18:01)
[2018-11-27] MEDS: VANCOMYCIN 1 GM/NS 1 GM/250 ML IVPB IV SCH (20:33)
[2018-11-27] MEDS ORDERED: VANCOMYCIN 1 GM/NS 1 GM/250 ML IVPB IV SCH (21:00)
[2018-11-28] MEDS: ZOSYN 3.375 GM in NS 50 ML IV SCH ×4 (03:00→21:47)
--- NOTE | 2018-11-28 04:08 | PULMONOLOGY PROGRESS NOTE ---
DATE: 11/27/2018 SUBJECTIVE: The patient is awake, alert, and conversant. She reports her breathing has improved. She reports continued cough and sputum production. She reports her appetite is improving. OBJECTIVE: Vital Signs: The patient has been afebrile for the last 24 hours. Blood pressure 152/67, heart rate 78, respiratory rate 21, oxygen saturation 96% on nasal cannula. HEENT: Pupils are equal and reactive. Oropharynx appears clear. Neck: Supple. Chest: Reveals scattered rhonchi bilaterally. Cardiac: S1-S2. Abdomen: Soft, and without hepatosplenomegaly. Extremities: Without edema. LABORATORIES: No new chemistries or CBC. No sputum has been collected. IMPRESSION: An 78-year-old with exacerbation of bronchiectasis, chronic hypoxemic respiratory failure, hypertension, oral tobacco use. RECOMMENDATIONS: 1. Continue antibiotics. 2. Agree with steroid taper, in an attempt to decrease hospital-acquired psychosis. 3. Continue bronchodilators/bronchial hygiene. 4. Encourage patient to discontinue oral tobacco use. cc: MD Mike Hardy MD
[2018-11-28] MEDS: SOLU-MEDROL IV SCH (05:21)
[2018-11-28] MEDS: LOVENOX SUBQ SCH (06:47)
[2018-11-28] MEDS: MUCOMYST 20% INH SCH ×2 (08:04→20:07)
[2018-11-28] MEDS: DUONEB (A & A) INH SCH ×4 (08:04→20:07)
[2018-11-28] MEDS: FEMARA PO SCH (10:11)
[2018-11-28] MEDS: CRESTOR PO SCH (10:11)
[2018-11-28] MEDS: LOTENSIN PO SCH ×2 (10:11→21:46)
[2018-11-28] MEDS: MUCINEX DM PO SCH ×2 (10:12→21:46)
[2018-11-28] MEDS: NEURONTIN PO SCH ×2 (10:12→21:47)
[2018-11-28] MEDS: LIORESAL PO SCH ×2 (10:12→21:47)
[2018-11-28] MEDS: LEXAPRO PO SCH (10:12)
--- NOTE | 2018-11-28 11:27 | PROGRESS NOTE ---
DATE: 11/28/2018 SUBJECTIVE: Ms. Macias is feeling better. She does have cough with scanty sputum production. Shortness of breath, improving. Oral intake is fair. No nausea or vomiting. Denied any dysuria. The patient does have spasticity of both the legs. OBJECTIVE: Vital Signs: Noted. At times, her blood pressure is high. Neck: Supple. No JVD. Lungs: Bilateral occasional wheezing. CVS: S1 and S2 heard. Abdomen: Soft, nontender. Bowel sounds present. Extremities: No cyanosis, clubbing. Patient does have spasticity in both the legs. 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 Answering questions fairly well. Blood culture is negative. I am planning to continue current treatment. Stop Solu-Medrol today and start oral prednisone. Planning to discharge her home on Friday on oral antibiotics. Will evaluate her for home oxygen. Continue the rest of the treatment. cc: Mike Gonsalves MD
[2018-11-28] MEDS: LEVAQUIN 750 MG/D5W 750 MG/150 ML IVPB IV SCH (17:14)
[2018-11-28] MEDS ORDERED: SOLU-MEDROL IV SCH (18:00)
[2018-11-29] MEDS: DUONEB (A & A) INH SCH ×5 (00:13→19:27)
[2018-11-29] MEDS: SODIUM CHLORIDE 0.9% INJ SCH (00:47)
[2018-11-29] MEDS: PROTONIX IV SCH (00:47)
[2018-11-29] MEDS: ZOSYN 3.375 GM in NS 50 ML IV SCH ×4 (03:28→21:17)
[2018-11-29] MEDS: LOVENOX SUBQ SCH (07:07)
--- NOTE | 2018-11-29 07:16 | PULMONOLOGY PROGRESS NOTE ---
DATE: 11/28/2018 SUBJECTIVE: The patient continues to have a cough with a rattle. She has not been able to produce a sputum sample for evaluation. She reports she is "feeling fine". OBJECTIVE: Vital Signs: The patient has been afebrile for the last 24 hours. Blood pressure 142/51, heart rate 83, respiratory rate 16, oxygen saturation 93% on nasal cannula. HEENT: Pupils are equal and reactive. Oropharynx is clear. Neck: Supple. Chest: Reveals coarse rhonchi bilaterally with crackles in both lung bases. Cardiac Examination: S1, S2. Abdomen: Scaphoid and soft. Extremities: Without edema. Laboratories: No new chemistries or CBC. IMPRESSION: An 78-year-old with bronchiectasis, chronic hypoxemic respiratory failure, hypertension, exacerbation of bronchiectasis, and ongoing oral tobacco use. She reports she is improving on a daily basis. RECOMMENDATIONS: 1. Continue antibiotics. 2. Continue bronchodilators with bronchial hygiene. 3. Encourage patient to discontinue oral tobacco use. 4. Agree with plans to transition patient to oral antibiotics and steroid course. Would consider a 14 to 21 day course of a broad spectrum antibiotic such as Levaquin or Augmentin. cc: MD Mike Hardy MD
[2018-11-29] MEDS: MUCINEX DM PO SCH ×2 (08:38→21:18)
[2018-11-29] MEDS: CRESTOR PO SCH (08:38)
[2018-11-29] MEDS: LIORESAL PO SCH ×2 (08:38→21:18)
[2018-11-29] MEDS: FEMARA PO SCH (08:38)
[2018-11-29] MEDS: JANUVIA PO SCH ×2 (08:38→21:17)
[2018-11-29] MEDS: NEURONTIN PO SCH ×2 (08:38→21:17)
[2018-11-29] MEDS: LOTENSIN PO SCH ×2 (08:38→21:18)
[2018-11-29] MEDS: LEXAPRO PO SCH (08:38)
[2018-11-29] MEDS: GLUCOPHAGE PO SCH ×2 (08:39→21:18)
[2018-11-29] MEDS: PREDNISONE PO SCH (08:39)
[2018-11-29] MEDS: MUCOMYST 20% INH SCH ×2 (08:49→19:27)
--- NOTE | 2018-11-29 11:31 | PROGRESS NOTE ---
DATE: 11/29/2018 VITAL SIGNS: Vital signs stable with temperature 98, heart rate 69, respiration 18, blood pressure 164/77, O2 saturation on 2 liters nasal oxygen 93%. SUBJECTIVE: The patient states she feels a little better. Appetite is fair. She is unable to walk. She sits in a chair most of the day at home. She states she has had leg weakness for about a year. She developed bronchiectasis and was admitted for treatment with intravenous antibiotics. Dr. Vigil was consulted and recommends 2 weeks of broad-spectrum antibiotics such as Levaquin or Augmentin. She is currently on Levaquin 750 mg IV q. 24 hours. She is receiving nebulizer treatments with albuterol. She does not use oxygen at home. PLAN: Continue current treatment. Chest x-ray on 11/25 revealed evidence of granulomatous disease, but no pleural fluid, pneumothorax, or infiltrates. Range of motion exercises will be started. She also is on vancomycin and Zosyn IV. cc: MD Mike Goss MD
[2018-11-29] MEDS: LEVAQUIN 750 MG/D5W 750 MG/150 ML IVPB IV SCH (17:38)
--- NOTE | 2018-11-29 18:16 | PULMONOLOGY PROGRESS NOTE ---
DATE: 11/29/2018 SUBJECTIVE: Patient is awake, alert, and conversant. She has a cough and is producing some sputum. She reports her breathing has improved, but she remains weak. OBJECTIVE: Blood pressure 145/64, heart rate 77, respiratory rate 16, oxygen saturation 96% on 2 L per nasal cannula. HEENT: Pupils are equal and reactive. Oropharynx is clear. Neck: Is supple. Chest: Reveals occasional rhonchi bilaterally. Cardiac: S1-S2. Abdomen: Soft and without hepatosplenomegaly. Extremities: Without edema. LABORATORIES: No new laboratories available today for review. IMPRESSION: An 78-year-old with exacerbation of bronchiectasis, chronic hypoxemic respiratory failure, hypertension, ongoing oral tobacco use. She continues to improve, but does report generalized weakness. RECOMMENDATION: 1. Continue oxygen for hypoxemic respiratory failure. 2. Continue antibiotics for exacerbation of bronchiectasis. 3. Continue bronchodilators. 4. Encourage discontinuation of all tobacco products. 5. Followup chest x-ray tomorrow. If she continues to improve, she should be a candidate for discharge in the near future. cc: MD Mike Hardy MD
[2018-11-29 20:13] LABS: CREATININE 0.8 mg/dL (0.5-0.9); RANDOM VANCOMYCIN 2.2 ug/mL (5.0-80)
[2018-11-29] MEDS: VANCOMYCIN 1 GM/NS 1 GM/250 ML IVPB IV SCH (22:22)
[2018-11-30] MEDS: DUONEB (A & A) INH SCH ×5 (00:01→19:22)
[2018-11-30] MEDS: PROTONIX IV SCH ×2 (01:05→02:47)
[2018-11-30] MEDS: SODIUM CHLORIDE 0.9% INJ SCH (02:47)
[2018-11-30] MEDS: ZOSYN 3.375 GM in NS 50 ML IV SCH ×3 (02:48→14:18)
[2018-11-30] MEDS: LOVENOX SUBQ SCH (06:10)
[2018-11-30 06:36] LABS: BASO# 0.02 X1000 (0.0-0.2); BASO% 0.3 % (0.0-0.8); EOS# 0.36 X1000 (0.0-0.7); HEMATOCRIT 37.8 % (37.0-47.0); HEMOGLOBIN 11.5 g/dL (12.0-16.0); IMM GRAN# 0.02 X1000 (0.0-0.04); IMM GRAN% 0.3 % (0.0-0.5); LYMPH# 1.16 X1000 (1.2-3.4); LYMPH% 16.1 % (20.5-51.1); MCH 26.2 PG (27-31); MCHC 30.4 g/dL (33-37); MCV 86.1 FL (81-99); MONO# 0.55 X1000 (0.11-0.59); MONO% 7.6 % (1.7-9.3); MPV 11.1 FL (7.4-10.4); NEUT# 5.11 X1000 (1.4-6.5); NEUT% 70.7 % (42.2-75.2); PLT 145 X1000 (130-400); RBC 4.39 XMIL (4.2-5.4); RDW 14.6 % (11.5-14.5); WBC 7.22 X1000 (4.8-10.8)
[2018-11-30 06:54] LABS: AGAP 10; ALB/GLOB RATIO 1.3; ALBUMIN 3.4 g/dL (3.5-5.0); ALKALINE PHOSPHATASE 57 U/L (32-104); BUN 15 mg/dL (8-22); CALCIUM 8.7 mg/dL (8.8-10.2); CHLORIDE 103 mmol/L (98-107); COSMO 287; CREATININE 0.5 mg/dL (0.5-0.9); ESTIMATED GFR > 60; GLUCOSE 112 mg/dL (70-104); GOT 11 U/L (10-30); GPT 7 U/L (10-36); MAGNESIUM 1.8 mg/dL (1.5-2.7); PHOSPHORUS 3.4 mg/dL (2.7-4.5); POTASSIUM 3.8 mmol/L (3.5-5.1); SODIUM 143 mmol/L (136-145); TCO2 30 mmol/L (25-35); TOTAL BILIRUBIN 0.26 mg/dL (0.20-1.00); TOTAL PROTEIN 6.1 g/dL (6.3-8.3)
--- NOTE | 2018-11-30 07:17 | PROGRESS NOTE ---
DATE: 11/30/2018 SUBJECTIVELY: Ms. Macias is doing better. She still has chronic cough with scanty sputum production. No high-grade fever or chills. No nausea or vomiting. Unfortunately patient still dips tobacco. No typical chest pain or palpitation. PHYSICAL EXAMINATION: Vital signs: Noted. Neck: Supple. No JVD. Lungs: Bilateral good air entry present. Occasional wheezing. Heart: S1 and S2 heard. Abdomen: Soft. Scaphoid. Bowel sounds present. Extremities: No cyanosis, clubbing. No acute DVT. 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 No acute DVT. The patient does have spasticity both legs. LABORATORY DATA: Done today, hemoglobin 11.5, hematocrit 37.8, WBC count 7.22, platelet 145,000. The rest of the lab data is pending. The patient's Accu-Chek results reviewed. ASSESSMENT: 1. Consideration bronchiectasis, Chronic obstructive pulmonary disease. 2. Diabetes mellitus. 3. Spasticity, both legs. 4. History of breast cancer. PLAN: 1. Encouraged patient to stop dipping tobacco. Continue rest of the treatment. I am going to continue antibiotics orally, taper her steroid. Plan on discharging patient home soon after reviewing today's result. Overall plan discussed with the patient. Continue rest of the treatment. cc: Mike Gonsalves MD
[2018-11-30] MEDS: MUCOMYST 20% INH SCH ×2 (08:06→19:22)
--- NOTE | 2018-11-30 08:21 | Diag Imaging Result Doc PS360 ---
EXAM: CHEST-2 VIEWS HISTORY: abnormal exam TECHNIQUE: Chest two views COMPARISON: 11/26/2018 FINDINGS: The lungs are well expanded. The heart is not enlarged. The vessels are not distended. There are minimal increased interstitial markings in the left lung base. No pleural effusions. IMPRESSION: Likely scarring in the left lung base although there could be a tiny infiltrate and/or atelectasis. Electronically signed by Tyshawn Mosley 11/30/2018 8:19 AM
[2018-11-30] MEDS ORDERED: GLUCOPHAGE PO SCH (09:00)
[2018-11-30] MEDS: MUCINEX DM PO SCH (09:47)
[2018-11-30] MEDS: CRESTOR PO SCH (09:47)
[2018-11-30] MEDS: NEURONTIN PO SCH (09:48)
[2018-11-30] MEDS: LEXAPRO PO SCH (09:48)
[2018-11-30] MEDS: PREDNISONE PO SCH (09:48)
[2018-11-30] MEDS: FEMARA PO SCH (09:48)
[2018-11-30] MEDS: JANUVIA PO SCH (09:48)
[2018-11-30] MEDS: LOTENSIN PO SCH (09:48)
[2018-11-30] MEDS: LIORESAL PO SCH (09:48)
[2018-11-30] MEDS ORDERED: VANCOMYCIN 1 GM/NS 1 GM/250 ML IVPB IV SCH ×2 (11:00→22:00)
[2018-11-30 11:51] VITALS: BP 166/62
[2018-11-30] MEDS: LEVAQUIN 750 MG/D5W 750 MG/150 ML IVPB IV SCH (18:29)
--- NOTE | 2018-12-01 03:32 | DISCHARGE SUMMARY ---
ADMISSION DATE: 11/25/2018 DISCHARGE DATE: 11/30/2018 FINAL DISCHARGE DIAGNOSES: 1. Exacerbation of chronic obstructive pulmonary disease. 2. Bronchiectasis. 3. Hypoxemic respiratory failure. 4. Diabetes mellitus. 5. Spasticity in the leg. 6. History of breast cancer. 7. Gastritis and reflux disease. 8. History of aortic stenosis, status post transcatheter aortic valve replacement. 9. Hypertension. 10. Hyperlipidemia. HISTORY OF PRESENT ILLNESS: Ms. Macias is an 78-year-old, , female patient admitted with chest congestion, cough, shortness of breath. The patient went to see her oncologist. The patient had CT scan done which showed bronchiectasis of the right lung with bronchial mucus plugging. The patient also had some difficulty breathing, hypoxemia. The patient was sent to the ER, evaluated, and admitted for further care. HOSPITAL COURSE: The patient was treated with IV antibiotics, pulmonary toilet, bronchodilator treatment. Her clinical condition gradually improved. Pulmonary consult obtained. Recommendations reviewed. The patient is doing better. Her cough and chest congestion improved. The patient received maximum benefit of hospitalization. I changed IV steroid to oral prednisone. The patient is doing better. I am going to discharge her home on home oxygen. I re-evaluated the patient in the evening. The patient is doing better, eager to go home. Her daughter was present. Discussed discharge planning, precautions. I offered them short-term rehab again but they declined. LABORATORY DATA: WBC count 7.22, hemoglobin 11.5, hematocrit 37.8, platelet count 145,000. Electrolytes were fairly benign. Blood sugar 112, potassium 3.8, BUN was 15. Her chest x-ray, scarring in the left lung base. There could be tiny infiltrate and/or atelectasis. Overall, patient received maximum benefit of hospitalization. Blood culture was negative. Flu test was negative. DISCHARGE INSTRUCTIONS: I am going to discharge the patient on a tapering dose of prednisone, Levaquin for 10 more days, home oxygen. Monitor Accu-Chek. Home health. Fall precautions. Follow up with me in 2 weeks. In case of more distress, call us back or go to the emergency room. cc: Mike Gonsalves MD
== END 2018-11-30 20:55 | disposition home health service (06) | DRG 191 ==
LOC: ED 16:51 → SUATTDRO 22:43 → 4N 22:43
PROVIDERS: ADMIT Internal Medicine; ATTEND Internal Medicine
CPT/HCPCS: 71010; 71020; 71045; 71046; 71260; 78306; 80053; 80202; 81001; 82550; 82565; 82805; 82948; 83605; 83735; 83880; 84100; 84484; 84520; 85025; 85610; 87040; 87275; 87276; 87804; 93005; 94640; 94761; 94762; 94799; 96365; 96366; 96368; 96375; 97110; 97162; 99285; A9270; A9503; C9113; J1650; J1956; J2543; J2920; J2930; J3370; J7030; J7506; J7512; Q9967; S0164; XXXXX

== ENCOUNTER 2019-01-01 16:54 | Inpatient (IN) ==
[2019-01-01] MEDS ORDERED: SOLU-MEDROL IV ONE (17:06)
[2019-01-01] MEDS ORDERED: DUONEB (A & A) INH ONE (17:07)
--- NOTE | 2019-01-01 17:23 | PROVIDER DOCUMENTATION ---
This chart was entered by Elsa Benitez Scribe, acting as scribe for Marvel Gerber CRNP. HPI-Respiratory General - General Chief Complaint: Shortness of Breath Stated Complaint: Sob Time Seen by Provider: 01/01/19 16:55 Source: patient, family (daughter), EMS Allergies/Adverse Reactions: Patient Allergies Allergy/AdvReac Type Severity Reaction Status Date / Time naproxen [From Aleve] Allergy Severe comatose Verified 01/01/19 17:32 Home Medications: Home Medication List Medication Instructions Recorded Confirmed Last Taken Type ROSUVAstatin [Crestor] 10 mg PO DAILY 08/28/17 11/26/18 02/05/18 02:00 History 10 Letrozole 1 tab PO DAILY 04/21/18 11/26/18 04/20/18 09:00 History Escitalopram [Lexapro] 10 mg PO DAILY 09/29/18 11/26/18 Unknown History BENAZEpril [Lotensin] 10 mg PO BID tablet 10/02/18 11/26/18 Unknown Rx Guaifenesin/Dm E.r. [Mucinex Dm] 1 each PO BID tablet 10/02/18 11/26/18 Unknown Rx Acetaminophen [Tylenol] 650 mg PO Q6H PRN PRN tablet 10/08/18 11/26/18 Unknown Rx Acetylcysteine 20% [Mucomyst 20%] 3 ml INH RTBID 14 Days vial 10/08/18 11/26/18 Unknown Rx Albuterol 2.5MG/Ipratrop 0.5MG 3 ml INH RTQ6H neb 10/08/18 11/26/18 Unknown Rx [Duoneb (A & A)] Baclofen 10 mg PO TID #0 10/08/18 11/26/18 Unknown Rx Gabapentin 300 mg PO BID #60 10/08/18 11/26/18 Unknown Rx Sitagliptin Phos/Metformin HCl 1 tab PO BID 11/26/18 11/26/18 Unknown History [Janumet 50-1,000 mg Tablet] Acetaminophen [Tylenol] 650 mg PO Q6H PRN PRN tablet 11/30/18 Unknown Rx Acetylcysteine 20% [Mucomyst 20%] 3 ml INH RTBID vial 11/30/18 Unknown Rx Albuterol 2.5MG/Ipratrop 0.5MG 3 ml INH RTQ4H.WA neb 11/30/18 Unknown Rx [Duoneb (A & A)] Levofloxacin [Levaquin] 750 mg PO DAILY #10 tablet 11/30/18 Unknown Rx Prednisone 5 mg PO DAILY 5 Days #5 tablet 11/30/18 Unknown Rx Prednisone 7.5 mg PO DAILY #2 tablet 11/30/18 Unknown Rx Prednisone 10 mg PO DAILY tablet 11/30/18 Unknown Rx - History of Present Illness-Resp Nature of Presenting Problem: 78 yof presents to the ed via ems for c/o sob, onset 2 days but became worse today. pt is on home O2 @ 2 LPM. pt has hx of COPD. pt on exam has bilateral wheezing, SOB and is tachypneic. Quality of Pain: reports: none Severity in ED: reports: moderate Onset/Duration: reports: 2 days ago Timing: reports: intermittent, getting worse Cough Quality/Degree: reports: moderate, productive cough Episode Frequency: chronic episodes Current Respiratory Medication Therapy: Initiated see nurses note Modifying Factors: improves with: oxygen. worse with: exertion Associated Symptoms: reports: cough, hyperventilating, shortness of breath, wheezing. denies: chest pain/soreness, dizziness, fever/chills Similar Symptoms Previously?: Yes Recently seen or treated by another doctor?: No Review of Systems - Adult - REVIEW OF SYSTEMS - ADULT Constitutional: denies: chills, fever Eyes: reports: no symptoms reported Ears, Nose, Mouth & Throat: reports: no symptoms reported Cardiovascular: denies: chest pain, palpitations Respiratory: reports: see HPI, chronic cough, dyspnea on exertion, shortness of breath, wheezing Gastrointestinal: denies: abdominal pain, diarrhea, nausea, vomiting Genitourinary: reports: no symptoms reported Musculoskeletal: reports: no symptoms reported Integumentary: reports: no symptoms reported Neurological: denies: dizziness/vertigo, headache/migraines Psychiatric: reports: no symptoms reported Endocrine: reports: no symptoms reported Hematologic/Lymphatic: reports: no symptoms reported Allergic/Immunologic: reports: no symptoms reported All Other Systems: Reviewed and Negative Past History - Adult - PAST MEDICAL HISTORY-ADULT Review of Records: reports: Old Records Reviewed, Nursing Assessment Review, Medications Reviewed, Social history reviewed & non-contributory. Major Childhood Illnesses: reports: denies history Cardiovascular: reports: HTN Respiratory: reports: COPD Gastrointestinal: reports: GERD Obstetrical/Gynecological: reports: denies history Genitourinary: reports: denies history Musculoskeletal: reports: denies history Hand Dominance: Right Handed Neurological: reports: denies history Psychiatric: reports: denies history Endocrine/Immune: reports: Diabetes Diabetes Type: Type 2 Other Conditions: reports: denies history - PRIOR SURGERIES/PROCEDURES Surgical/Procedure History: reports: breast, other (pelvis fx) - IMMUNIZATION STATUS Childhood Immunizations: See Nurse Assessment Flu Vaccine: See Nurse Assessment - FAMILY HISTORY Family History: reviewed, not pertinent - SOCIAL HISTORY Smoking: denies Substance Use: denies Living Situation: family Physical Exam-General - PHYSICAL EXAM-ADULT Initial Vital Signs Reviewed: Yes - CONSTITUTIONAL General Appearance: alert, mild distress - EYES Eyes: PERRL/EOMI, pink conjunctivae - HEAD, EARS, NOSE, MOUTH & THROAT HENMT: moist mucous membranes, normal ENT inspection - NECK Neck: non-tender, full range of motion, supple, normal inspection - RESPIRATORY Respiratory: chest non-tender, respiratory distress, wheezing (bilateral), increased rate (26). negative: crackles, rales, rhonchi - CARDIOVASCULAR Cardiovascular: normal peripheral pulses, regular rate, rhythm (78) - GASTROINTESTINAL (ABDOMEN) Abdominal Exam: normal bowel sounds, non tender, soft - LYMPHATIC Lymphatic: no adenopathy - MUSCULOSKELETAL Back Exam: normal inspection, no CVA tenderness, no vertebral tenderness Extremity: normal range of motion, non-tender, normal inspection, pelvis stable - SKIN Integumentary: normal color, normal turgor, warm/dry - NEUROLOGIC Neurologic: grossly normal - PSYCHIATRIC Psych/Mental Status: normal mood/affect, normal thought content, normal thought process, oriented x 3 Progress - PLAN OF CARE/RESULTS Progress/Plan/Lab Results: Vital Signs - 8 hr 01/01/19 17:25 Pulse Rate 84 Respiratory Rate 20 Laboratory Results - last 24 hr 01/01/19 01/01/19 01/01/19 17:23 17:23 17:23 WBC 6.98 RBC 5.06 Hgb 13.2 Hct 42.4 MCV 83.8 MCH 26.1 L MCHC 31.1 L RDW Std Deviation 14.5 Plt Count 198 MPV 10.3 Immature Gran % (Auto) 0.0 Neut % (Auto) 47.1 Lymph % (Auto) 33.0 [place] % (Auto) 9.7 H Eos % (Auto) 9.6 Baso % (Auto) 0.6 Immature Gran # (Auto) 0.00 Neut # (Auto) 3.29 Lymph # (Auto) 2.30 [place] # (Auto) 0.68 H Eos # (Auto) 0.67 Baso # (Auto) 0.04 Specimen Type Sample Site pH pCO2 pO2 HCO3 Base Excess Oxyhemoglobin ABG O2 Sat (Calculated) ABG O2 Saturation ABG Carboxyhemoglobin ABG Methemoglobin Buzz Test A-a O2 Difference Total Hemoglobin Lactate Liter Flow Blood Gas Modality FiO2 % Sodium 141 Potassium 4.2 Chloride 101 Carbon Dioxide 28 Anion Gap 12 BUN 13 Creatinine 0.4 L Estimated GFR/1.73 m2 > 60 BUN/Creatinine Ratio 33 Glucose 132 H Calculated Osmolality 283 Calcium 8.5 L Total Bilirubin 0.22 AST 20 ALT 9 L Alkaline Phosphatase 83 Creatine Kinase 69 Troponin T Tvy-P-Cwehtjogbjl Pept 641 H Total Protein 7.0 Albumin 4.3 Globulin 2.7 Albumin/Globulin Ratio 1.6 Urine Source Urine Color Urine Turbidity Urine pH Ur Specific [place] Urine Protein Ur Glucose (Stick) Ur Ketones (Stick) Urine Blood Urine Nitrite Urine Bilirubin Urobilinogen Dipstick Urine Leukocytes Urine WBC (Auto) Urine RBC (Auto) U Epithel Cells (Auto) Urine Bacteria (Auto) 01/01/19 01/01/19 01/01/19 17:23 17:30 17:43 WBC RBC Hgb Hct MCV MCH MCHC RDW Std Deviation Plt Count MPV Immature Gran % (Auto) Neut % (Auto) Lymph % (Auto) [place] % (Auto) Eos % (Auto) Baso % (Auto) Immature Gran # (Auto) Neut # (Auto) Lymph # (Auto) [place] # (Auto) Eos # (Auto) Baso # (Auto) Specimen Type ARTERIAL Sample Site L RADIAL pH 7.34 L pCO2 52 H* pO2 93 HCO3 26.1 H Base Excess 1.5 Oxyhemoglobin 96.7 ABG O2 Sat (Calculated) 17.0 ABG O2 Saturation 98.8 ABG Carboxyhemoglobin 1.10 ABG Methemoglobin 1.1 Buzz Test YES A-a O2 Difference 99.0 Total Hemoglobin 12.4 Lactate 2.00 Liter Flow 4.0 Blood Gas Modality CANNULA FiO2 % 36.0 Sodium Potassium Chloride Carbon Dioxide Anion Gap BUN Creatinine Estimated GFR/1.73 m2 BUN/Creatinine Ratio Glucose Calculated Osmolality Calcium Total Bilirubin AST ALT Alkaline Phosphatase Creatine Kinase Troponin T < 0.010 Thn-N-Jobtjoqdkur Pept Total Protein Albumin Globulin Albumin/Globulin Ratio Urine Source CLEAN CATCH Urine Color YELLOW Urine Turbidity HAZY Urine pH 5.5 Ur Specific [place] 1.012 Urine Protein TRACE A Ur Glucose (Stick) NEGATIVE Ur Ketones (Stick) NEGATIVE Urine Blood TRACE A Urine Nitrite NEGATIVE Urine Bilirubin NEGATIVE Urobilinogen Dipstick NORMAL Urine Leukocytes LARGE A Urine WBC (Auto) TNTC A Urine RBC (Auto) <10 U Epithel Cells (Auto) <10 Urine Bacteria (Auto) NEGATIVE Orders Category Date Time Status Saline Loc NOW Care 01/01/19 17:04 Active CHEST-PORTABLE [RAD] Stat Exams 01/01/19 17:06 Completed ABG [RESP] Routine Lab 01/01/19 17:30 Completed CBC WITH ELECTRONIC DIFF [HEME] Stat Lab 01/01/19 17:23 Completed CK PROFILE [SP CHEM] Stat Lab 01/01/19 17:23 Completed COMPREHENSIVE METABOLIC PANEL [CHEM] Stat Lab 01/01/19 17:23 Completed PRO B-NATRIURETIC PEPTIDE Stat Lab 01/01/19 17:23 Completed TROPONIN T Stat Lab 01/01/19 17:23 Completed URINALYSIS W/POSS RFLX CULT [URINALYSIS] Stat Lab 01/01/19 17:43 Completed URINE CULTURE [RM] Routine Lab 01/01/19 17:54 Received Albuterol 2.5MG/Ipratrop 0.5MG [Duoneb (A & A)] Med 01/01/19 17:07 Discontinued 6 ml INH NOW ONE Methylprednisolone Sod Succ [Solu-Medrol] Med 01/01/19 17:06 Discontinued 80 mg IV NOW ONE Rocephin 1 gm/Ns IV Now Med 01/01/19 18:22 Ordered CefTRIAXONE [Rocephin] 1 gm 0.9% Sodium Chloride Inj [Ns] 50 ml IV NOW Aerosol Treatments Routine Oth 01/01/19 17:07 Completed Aerosol Treatments Stat Oth 01/01/19 17:07 Completed EKG [EKG] Stat Ther 01/01/19 17:04 Ordered Discussed results and plan of care with patient. Patient agrees with plan and verbalizes understanding. Result Diagrams: 01/01/19 17:23 01/01/19 17:23 - XRAY 1 XRAY Study: Chest ([facility] [address], [address], [place] [address] Department of Imaging Patient: NOHEMI NEAL Date: 01/01/19MR#: [id number] : 1940ADM Status: PRE ERAcct#: [id number] Age/Sex: 78/FRoom/Bed: Loc: ED Ordering Physician: Marvel Gerber Family Physician: Mike Gonsalves MD Reason for Procedure: SOB ___ Signed EXAM: CHEST-PORTABLE 01/01/2019 HISTORY: SOB TECHNIQUE: AP portable upright at 1713 COMMENT: There is a TAVR. Compared to 11/30/2018 the left lung base is clearer. Otherwise there has been no significant change. IMPRESSION: No acute disease. Electronically signed by Clark Srivastava 01/01/2019 5:30 PM 01/01/19 1730 Interpreting Physician: Clark Srivastava MD Dictated Date/Time: 01/01/19 1729 cc: Marvel Gerber; Mike Gonsalves MD) XRAY Interpretation: See note - CONSULTS/PCP/HOSPITALIST Notification #1 *Consult/PCP/Hospitalist*: Dr. Marte Time Discussed: 18:25 Reason/Comments: Admission Consult Disposition: Admit Departure - Departure Date of Disposition Decision: 01/01/19 Time of Disposition Decision: 18:20 DIAGNOSIS: COPD with exacerbation UTI (urinary tract infection) Qualifiers: Urinary tract infection type: acute cystitis Hematuria presence: without hematuria Qualified Code(s): N30.00 - Acute cystitis without hematuria Disposition: ADMITTED INPATIENT 09 Certified Medical Emergency: Emergent Condition: Stable Referrals and Follow-Ups: Mike Gonsalves MD [Primary Care Provider] - - Critical Care Note This patient required my direct & personal management of CC.: Yes Total Time (mins): 37 Critical Care Statement: This patient required my direct personal management to treat or rule out processes, the absence of which, could potentiallly result in sudden, clinically significant life or limb threatening deterioration. Attestation - Physician/ KORY Attestation Patient care was provided by Advanced Practice Provider:: Yes Advanced Practice Provider:: Marvel Gerber Advanced Practice Provider documentation review:: The Mid-level provider documentation, treatment plan and medical decision making was reviewed by the physician who agrees with all treatment and medical decision making by the MLP. The physician spent face to face time with patient:: No Advanced Practice Provider documentation review:: Supervising physician onsite and consulted in the evaluation and care of this patient. The physician did not have a face to face encounter with the patient. This chart was documented by the indicated scribe, (Elsa Benitez Scribe) and accurately reflects the services I performed and decisions made by me, Marvel Gerber CRNP, as attested by the provider's signature.
--- NOTE | 2019-01-01 17:32 | Diag Imaging Result Doc PS360 ---
EXAM: CHEST-PORTABLE 01/01/2019 HISTORY: SOB TECHNIQUE: AP portable upright at 1713 COMMENT: There is a TAVR. Compared to 11/30/2018 the left lung base is clearer. Otherwise there has been no significant change. IMPRESSION: No acute disease. Electronically signed by Clark Srivastava 01/01/2019 5:30 PM
[2019-01-01 17:35] LABS: BASO# 0.04 X1000 (0.0-0.2); BASO% 0.6 % (0.0-0.8); EOS# 0.67 X1000 (0.0-0.7); EOS% 9.6 % (0.0-10.0); HEMATOCRIT 42.4 % (37.0-47.0); HEMOGLOBIN 13.2 g/dL (12.0-16.0); MCH 26.1 PG (27-31); MCHC 31.1 g/dL (33-37); MCV 83.8 FL (81-99); MONO# 0.68 X1000 (0.11-0.59); MONO% 9.7 % (1.7-9.3); MPV 10.3 FL (7.4-10.4); NEUT# 3.29 X1000 (1.4-6.5); NEUT% 47.1 % (42.2-75.2); PLT 198 X1000 (130-400); RBC 5.06 XMIL (4.2-5.4); RDW 14.5 % (11.5-14.5); WBC 6.98 X1000 (4.8-10.8)
[2019-01-01 17:42] LABS: ALLEN TEST YES; BE 1.5 mmoll (-3.0-3.0); BLOOD TYPE ARTERIAL; HCO3-(ACT) 26.1 mmoll (20.0-26.0); METHB 1.1 % (0.0-1.5); O2HB 96.7 % (95.0-99.0); PO2(98.6) 93 mmHg (60-100); SAMPLE BLOOD; SAO2 98.8 % (95.0-100.0); THB 12.4 g/dL (11.5-17.4); pH(98.6) 7.34 (7.35-7.45)
[2019-01-01 17:44] LABS: MODALITY CANNULA; PCO2(98.6) 52 mmHg (35-45)
[2019-01-01 17:49] LABS: URINE SOURCE CLEAN CATCH
[2019-01-01 17:53] LABS: BILIRUBIN URINE NEGATIVE (NEGATIVE); BLOOD URINE TRACE (NEGATIVE); COLOR YELLOW; GLUCOSE URINE NEGATIVE (NEGATIVE); KETONE URINE NEGATIVE (NEGATIVE); LEUKOCYTES URINE LARGE (NEGATIVE); NITRITE URINE NEGATIVE (NEGATIVE); PH URINE 5.5; PROTEIN URINE TRACE mg/dL (NEGATIVE); SP GRAVITY URINE 1.012; TURBIDITY URINE HAZY (CLEAR); UR EPITHELIAL CELLS <10 /HPF (<10); URINE BACTERIA NEGATIVE /HPF; URINE RBC <10 /HPF (<10); URINE WBC TNTC /HPF (<10); UROBILINOGEN URINE NORMAL (NORMAL)
[2019-01-01 17:58] LABS: AGAP 12; ALB/GLOB RATIO 1.6; ALBUMIN 4.3 g/dL (3.5-5.0); ALKALINE PHOSPHATASE 83 U/L (32-104); BUN 13 mg/dL (8-22); CALCIUM 8.5 mg/dL (8.8-10.2); CHLORIDE 101 mmol/L (98-107); CK PROFILE 69 U/L (24-173); COSMO 283; CREATININE 0.4 mg/dL (0.5-0.9); ESTIMATED GFR > 60; GLUCOSE 132 mg/dL (70-104); GOT 20 U/L (10-30); GPT 9 U/L (10-36); POTASSIUM 4.2 mmol/L (3.5-5.1); SODIUM 141 mmol/L (136-145); TCO2 28 mmol/L (25-35); TOTAL BILIRUBIN 0.22 mg/dL (0.20-1.00)
[2019-01-01] MEDS ORDERED: ROCEPHIN 1 GM in NS 50 ML IV ONE (18:22)
[2019-01-01] MEDS: DUONEB (A & A) INH SCH ×3 (19:18→22:49)
--- NOTE | 2019-01-01 19:49 | HISTORY AND PHYSICAL ---
HISTORY OF PRESENT ILLNESS: Ms. Macias who is an 78-year-old white female was feeling fine when the home health nurse came this morning; however, later on she started getting short of breath. She had persistent wheezing in the chest, persistent cough with expectoration, and she decided to come to the emergency room, and she was admitted after evaluation. She is a patient of Dr. Gonsalves, known case of COPD, has history of mild hypertension. She also had some dysuria. PAST SURGICAL HISTORY: History of mastectomy and she had aortic valve replacement. Has been on the aerosol bronchodilators. SOCIAL HISTORY: No history of smoking; however, she had secondhand smoking because her smoked heavily. She has no history of alcoholism. ALLERGIES: History of allergy to Naprosyn. MEDICATIONS: We have not got the medications yet. REVIEW OF SYSTEMS: She has been very weak and more short of breath. PHYSICAL EXAMINATION: VITAL SIGNS: Revealed temperature normal, pulse 82 per minute, respiratory rate 19 per minute, blood pressure 138/67, oxygen saturation was 96%. HEAD: Normocephalic. EYES: Pupils PERRLA. Fundus examination not done. NECK: Supple. JVP normal. ENT EXAMINATION: Unremarkable. NECK: There is no evidence of lymphadenopathy, thyroid enlargement, pedal edema, calf tenderness, anemia, cyanosis or clubbing. Pedal pulses were felt. The patient had left mastectomy. LUNGS: Reveal some bilateral expiratory wheezing. PMI in normal position. HEART: Sounds normal. No murmur, gallop or rub noted. She has a midline scar in the chest from the aortic surgery. ABDOMEN: Soft, nondistended. Hernial orifices normal. No guarding, rigidity, free fluid, masses, or organomegaly. Bowel sounds normal. RECTAL EXAM: Deferred. CENTRAL NERVOUS SYSTEM: Higher functions normal. Cranial nerves normal. Motor and sensory system examination unremarkable. Deep tendon reflexes normal. Plantars downgoing. Skull and spine examination normal for age. No cerebellar signs or signs of meningeal irritation on locomotor exam. SKIN EXAM: Unremarkable. IMPRESSION: 1. Acute exacerbation of chronic obstructive pulmonary disease. Chest x-ray is unremarkable. 2. She has acute urinary tract infection. 3. History of aortic valve surgery. 4. History of mastectomy for breast cancer. This was not followed by radiation or chemotherapy. cc: Tab Marte MD
[2019-01-01] MEDS ORDERED: TYLENOL PO PRN (20:11)
[2019-01-01] MEDS: LIORESAL PO SCH (21:47)
[2019-01-01] MEDS: LOTENSIN PO SCH (21:47)
[2019-01-01] MEDS: ULTRAM PO PRN (22:45)
[2019-01-02] MEDS: SOLU-MEDROL IV SCH ×4 (00:59→22:19)
[2019-01-02] MEDS: DUONEB (A & A) INH SCH ×7 (03:26→22:34)
[2019-01-02] MEDS: LIORESAL PO SCH ×3 (08:26→22:17)
[2019-01-02] MEDS: LEXAPRO PO SCH (08:26)
[2019-01-02] MEDS: LOTENSIN PO SCH ×2 (08:26→22:16)
[2019-01-02] MEDS: ULTRAM PO PRN ×2 (08:31→15:22)
--- NOTE | 2019-01-02 12:51 | PROGRESS NOTE ---
DATE: 01/02/2019 Ms. Lundberg has some urinary irritation. She has UTI. Cultures have been done. Her lungs reveal some expiratory wheezing. She continues to have some respiratory distress. We will cut down on her steroids today. She is getting IV Rocephin, which we will continue as well as continue the antibiotics. cc: MD Mike Smallwood MD
[2019-01-02] MEDS: HUMALOG SUBQ SCH ×2 (17:56→22:17)
[2019-01-02] MEDS: ROCEPHIN 1 GM in NS 50 ML IV SCH (17:58)
[2019-01-02] MEDS: TYLENOL PO PRN (22:15)
[2019-01-02] MEDS: JANUVIA PO SCH (22:16)
[2019-01-02] MEDS: GLUCOPHAGE PO SCH (22:16)
[2019-01-02] MEDS: NEURONTIN PO SCH (22:16)
[2019-01-03] MEDS: DUONEB (A & A) INH SCH ×6 (03:53→23:15)
[2019-01-03] MEDS: SOLU-MEDROL IV SCH ×2 (05:50→17:29)
[2019-01-03] MEDS: HUMALOG SUBQ SCH ×5 (05:50→20:46)
[2019-01-03] MEDS ORDERED: COZAAR PO SCH (09:00)
[2019-01-03] MEDS: LOTENSIN PO SCH ×2 (09:20→22:04)
[2019-01-03] MEDS: GLUCOPHAGE PO SCH ×2 (09:20→21:07)
[2019-01-03] MEDS: LIORESAL PO SCH ×3 (09:20→21:07)
[2019-01-03] MEDS: JANUVIA PO SCH ×2 (09:21→22:04)
[2019-01-03] MEDS: LEXAPRO PO SCH (09:21)
[2019-01-03] MEDS: CRESTOR PO SCH (09:22)
[2019-01-03] MEDS: NEURONTIN PO SCH ×2 (09:23→21:07)
--- NOTE | 2019-01-03 12:22 | PROGRESS NOTE ---
DATE: 01/03/2019 SUBJECTIVE: Ms. Macias is feeling better. Her wheezing is considerably better. Her lungs sound clear. She has UTI also. She is on IV Rocephin as well as steroids. We are tapering the steroid doses. -0 cc: MD Mike Smallwood MD
[2019-01-03] MEDS: ROCEPHIN 1 GM in NS 50 ML IV SCH (17:29)
[2019-01-03] MEDS: TYLENOL PO PRN (22:04)
[2019-01-04] MEDS: SOLU-MEDROL IV SCH ×2 (06:12→17:02)
[2019-01-04] MEDS: DUONEB (A & A) INH SCH ×6 (06:25→23:14)
[2019-01-04] MEDS: HUMALOG SUBQ SCH ×4 (06:37→21:37)
[2019-01-04 06:41] LABS: HEMATOCRIT 38.7 % (37.0-47.0); IMM GRAN# 0.02 X1000 (0.0-0.04); IMM GRAN% 0.2 % (0.0-0.5); LYMPH% 19.7 % (20.5-51.1); MCH 26.2 PG (27-31); MCV 84.5 FL (81-99); MONO# 0.86 X1000 (0.11-0.59); MONO% 9.4 % (1.7-9.3); MPV 10.6 FL (7.4-10.4); NEUT# 6.44 X1000 (1.4-6.5); NEUT% 70.7 % (42.2-75.2); PLT 187 X1000 (130-400); RBC 4.58 XMIL (4.2-5.4); RDW 14.6 % (11.5-14.5); WBC 9.12 X1000 (4.8-10.8)
--- NOTE | 2019-01-04 06:59 | PROGRESS NOTE ---
DATE: 01/04/2019 SUBJECTIVE: An 78-year-old, white, female patient admitted with cough, wheezing, shortness of breath, expectoration. She also had some fever. In the emergency room, the patient was found to have a UTI. The patient has a known case of COPD, breast cancer, diabetes mellitus, hypertension. The patient claims she still has a cough, some wheezing, expectoration, shortness of breath improving some. She denied any nausea or vomiting. Oral intake is improving. Blood sugar doing fair. No typical chest pain or palpitations. Her vital signs per the admission history and physical noted. OBJECTIVE: Vital Signs: Blood pressure 156/71, pulse 80, respirations 18, temperature 97.5 degrees. Skin: Senile turgor. HEENT: Head atraumatic, normocephalic. [place] conjunctivae. Anicteric sclerae. Extraocular muscle movement normal. Fundus cannot be penetrated. Good oral hygiene. No tonsillopharyngeal congestion or exudate. Ears and nose benign. Neck: Supple. No JVD. Lungs: Bilateral good air entry present. Occasional wheezing. Cardiovascular: S1 and S2 heard. No gallop or thrill. Abdomen: Soft. No distention. Bowel sounds present. TELEHEALTH NURSE: Alert, awake. Able to move all 4 limbs. Laboratory Data: Admission chest x-ray was benign. Urine culture, there was no pathogenic growth. CONSIDERATIONS: 1. Chronic obstructive pulmonary disease exacerbation. 2. Possible urinary tract infection. 3. Hypertension. 4. Diabetes mellitus. 5. Gastritis and reflux disease. PLAN: The patient is on IV antibiotics. We will continue bronchodilator treatment. Close observation. Diabetic care. The patient is on a tapering dose of steroids. I am going to stop her Cozaar. Overall plan discussed with the patient and she is in agreement. I had a lengthy discussion with the patient about tobacco cessation. cc: Mike Gonsalves MD
[2019-01-04 07:09] LABS: AGAP 9; ALB/GLOB RATIO 1.7; ALKALINE PHOSPHATASE 67 U/L (32-104); BUN 17 mg/dL (8-22); CALCIUM 9.1 mg/dL (8.8-10.2); CHLORIDE 102 mmol/L (98-107); COSMO 289; CREATININE 0.5 mg/dL (0.5-0.9); ESTIMATED GFR > 60; GLUCOSE 171 mg/dL (70-104); GOT 16 U/L (10-30); GPT 9 U/L (10-36); MAGNESIUM 1.9 mg/dL (1.5-2.7); POTASSIUM 4.7 mmol/L (3.5-5.1); SODIUM 142 mmol/L (136-145); TCO2 31 mmol/L (25-35); TOTAL BILIRUBIN 0.18 mg/dL (0.20-1.00); TOTAL PROTEIN 6.3 g/dL (6.3-8.3)
[2019-01-04] MEDS ORDERED: DUONEB (A & A) ONE (07:55)
[2019-01-04] MEDS: LEXAPRO PO SCH (09:06)
[2019-01-04] MEDS: LIORESAL PO SCH ×3 (09:06→21:35)
[2019-01-04] MEDS: LOTENSIN PO SCH ×2 (09:06→21:37)
[2019-01-04] MEDS: JANUVIA PO SCH ×2 (09:06→21:36)
[2019-01-04] MEDS: GLUCOPHAGE PO SCH ×2 (09:06→21:41)
[2019-01-04] MEDS: CRESTOR PO SCH (09:06)
[2019-01-04] MEDS: NEURONTIN PO SCH ×2 (09:07→21:35)
[2019-01-04] MEDS: MUCOMYST 20% INH SCH ×2 (11:51→19:20)
[2019-01-04] MEDS: ROCEPHIN 1 GM in NS 50 ML IV SCH (17:38)
[2019-01-05] MEDS: DUONEB (A & A) INH SCH ×6 (03:26→23:37)
[2019-01-05] MEDS: HUMALOG SUBQ SCH ×4 (06:29→21:42)
--- NOTE | 2019-01-05 07:10 | PROGRESS NOTE ---
DATE: 01/05/2019 SUBJECTIVE: Ms. Macias is doing better. She does have a cough with expectoration. Denied any high-grade fever or chills. No chest pain or palpitations. Denied any nausea or vomiting. Oral intake is getting better. The patient does have compromised lung. She is getting sick very fast. As per history and physical, no dysuria or hematuria. OBJECTIVE:: Vital Signs: Noted. Neck: Supple. No JVD. Lungs: Bilateral occasional wheezing. CVS: S1 and S2 heard. Abdomen: Soft, scaphoid. Bowel sounds present. Extremities: No cyanosis, clubbing. Patient does have contracture of both the legs and spasticity in both the legs. NEIGHBORHOOD PLANNER: Alert, awake. Able to move all 4 limbs. CONSIDERATION: 1. Acute exacerbation of chronic obstructive pulmonary disease, most likely due to bronchitis. 2. Urinary tract infection but urine culture was negative. 3. Diabetes mellitus. 4. Hypertension. I discontinued Cozaar. LAB DATA: Done yesterday, WBC count 9.12, hemoglobin 12, hematocrit 38.7, platelets 187,000. Electrolytes were fairly benign. Blood sugar was elevated. PLAN: Overall, patient is doing better. I am going to add Levaquin for atypical coverage. Continue current treatments. Change Solu-Medrol to p.o. prednisone. If clinical condition permits, I am planning to discharge patient home soon. cc: Mike Gonsalves MD
[2019-01-05] MEDS: MUCOMYST 20% INH SCH ×2 (07:15→19:30)
--- NOTE | 2019-01-05 07:34 | Diag Imaging Result Doc PS360 ---
EXAM: CHEST-PORTABLE INDICATION: dyspnea TECHNIQUE: One view COMPARISON: 01/01/2019 FINDINGS: There is suggestion of mild atelectasis at the left lung base. The lungs are grossly clear, otherwise. There is no discrete pleural fluid collection or pneumothorax. A prosthetic aortic valve is stable. Cardiac silhouette and central vasculature are unremarkable, otherwise. IMPRESSION: Suggestion of mild left basilar atelectasis. Stable chest, otherwise. Electronically signed by Wilber Ayers 01/05/2019 7:32 AM
[2019-01-05] MEDS: LEXAPRO PO SCH (08:32)
[2019-01-05] MEDS: NEURONTIN PO SCH ×2 (08:32→21:41)
[2019-01-05] MEDS: JANUVIA PO SCH ×2 (08:33→21:41)
[2019-01-05] MEDS: CRESTOR PO SCH (08:33)
[2019-01-05] MEDS: LOTENSIN PO SCH ×2 (08:33→21:41)
[2019-01-05] MEDS: GLUCOPHAGE PO SCH ×2 (08:33→21:41)
[2019-01-05] MEDS: LIORESAL PO SCH ×3 (08:33→21:41)
[2019-01-05] MEDS: PREDNISONE PO SCH (08:35)
[2019-01-05] MEDS: LEVAQUIN PO SCH (08:35)
[2019-01-05] MEDS: ROCEPHIN 1 GM in NS 50 ML IV SCH (17:25)
[2019-01-06] MEDS: DUONEB (A & A) INH SCH ×3 (03:28→11:09)
[2019-01-06] MEDS: HUMALOG SUBQ SCH ×2 (06:13→11:28)
[2019-01-06] MEDS ORDERED: DULCOLAX PR ONE (06:39)
[2019-01-06] MEDS ORDERED: MILK OF MAGNESIA PO ONE (06:40)
[2019-01-06] MEDS: MUCOMYST 20% INH SCH (07:05)
--- NOTE | 2019-01-06 07:27 | DISCHARGE SUMMARY ---
ADMISSION DATE: 01/01/2019 DISCHARGE DATE: FINAL DISCHARGE DIAGNOSES: 1. Exacerbation of chronic obstructive pulmonary disease. 2. Bronchiectasis. 3. Diabetes mellitus. 4. Hypertension. 5. Gastritis and reflux disease. 6. 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 7. History of breast cancer. 8. Constipation. HISTORY OF PRESENT ILLNESS/HOSPITAL COURSE: Ms. Macias, an 78-year-old white female patient admitted with chest congestion, cough, wheezing, shortness of breath. The patient was brought to the emergency room. The patient had bilateral wheezing. She was hypoxemic. Evaluated in the ER and admitted for further care. Her initial chest x-ray did not reveal any acute pneumonia. Impression was acute bronchitis and bronchospasm. The patient was admitted and started on IV antibiotics, IV steroid, symptomatic treatment. Her initial urinalysis did reveal UTI. Urine culture was negative. Her clinical condition gradually improved. Shortness of breath improved. Clinically, the patient is doing better. Repeat chest x- ray did not show any pneumonia. It did show atelectasis. Overall, the patient is doing better. The patient did not have a bowel movement. I am going to give her Dulcolax suppository and also milk of magnesia today. Her chest congestion, cough, shortness of breath improved. Oral intake is better. PHYSICAL EXAMINATION: Vital Signs: Noted. The patient is afebrile. Neck: Supple. No JVD. Lungs: Bilateral good air entry present. Occasional wheezing. Cardiovascular: S1 and S2 heard, a 2/6 systolic murmur at the apex. Abdomen: Soft. No distention. Bowel sounds present. Extremities: The patient does have spasticity of both the legs. No acute DVT. Central Nervous System: Alert, awake, able to move all 4 limbs. Answering questions fairly well. DIAGNOSTIC DATA: I did blood work on January 04, and those were satisfactory. WBC count 9.12, hemoglobin 12, hematocrit 38.7, platelet count 187,000. Electrolytes were benign. Chest x-ray results reviewed. PLAN: Overall, the patient received maximum benefit of hospitalization, and I am planning to discharge the patient home today. Fall precaution. We will resume home health. I am going to discharge her home on Levaquin. Monitor Accu-Chek and blood pressure at home. Follow up with me in 1 week. The patient will take prednisone in tapering dose. In case of more distress, call us back or go to the emergency room. cc: Mike Gonsalves MD
[2019-01-06] MEDS: GLUCOPHAGE PO SCH (09:01)
[2019-01-06] MEDS: LIORESAL PO SCH (09:01)
[2019-01-06] MEDS: JANUVIA PO SCH (09:01)
[2019-01-06] MEDS: CRESTOR PO SCH (09:01)
[2019-01-06] MEDS: PREDNISONE PO SCH (09:01)
[2019-01-06] MEDS: LEVAQUIN PO SCH (09:02)
[2019-01-06] MEDS: NEURONTIN PO SCH (09:02)
[2019-01-06] MEDS: LOTENSIN PO SCH (09:02)
[2019-01-06] MEDS: LEXAPRO PO SCH (09:02)
[2019-01-06 11:33] VITALS: BP 145/61
--- NOTE | 2019-02-10 12:32 | DISCHARGE SUMMARY ---
ADMISSION DATE: 01/01/2019 DISCHARGE DATE: 01/06/2019 DISCHARGE SUMMARY ADDENDUM: I reviewed the patient's medical record considering her presentation. Clinically, it is consistent with chronic hypoxemic respiratory failure only. cc: Mike Gonsalves MD
--- NOTE | 2019-02-11 06:54 | DISCHARGE SUMMARY ---
ADMISSION DATE: 01/01/2019 DISCHARGE DATE: 01/06/2019 Ms. Christie Macias's presentation suggestive of acute hypercapnic on chronic hypoxemic respiratory failure. cc: Mike Gonsalves MD
== END 2019-01-06 13:17 | disposition home health service (06) | DRG 190 ==
LOC: SUPCPDRO → ED 16:54 → 3N 19:43
PROVIDERS: ADMIT Internal Medicine; ATTEND Internal Medicine
CPT/HCPCS: 71010; 71045; 80053; 81001; 82550; 82805; 82948; 83735; 83880; 84484; 85025; 87088; 93005; 94640; 94761; 96374; 97110; 97162; 97530; 99285; A9270; J0696; J1815; J2920; J2930; J7506; J7512; XXXXX

== ENCOUNTER 2019-02-10 12:45 | Inpatient (IN) ==
[2019-02-10] MEDS ORDERED: DUONEB (A & A) INH ONE (13:07)
--- NOTE | 2019-02-10 13:07 | EKG Report ---
Test Performed on : 02/10/2019 1:01:00 PM Test Reason : sob Blood Pressure : / mmHG Vent. Rate : 091 BPM Atrial Rate : 091 BPM P-R Int : 126 ms QRS Dur : 092 ms QT Int : 366 ms P-R-T Axes : 079 005 082 degrees QTc Int : 450 ms Normal sinus rhythm. Normal ECG When compared with ECG of 25-NOV-2018 19:56, Nonspecific T wave abnormality, worse in Lateral leads Unconfirmed Result
--- NOTE | 2019-02-10 13:28 | Diag Imaging Result Doc PS360 ---
EXAM: CHEST-1 VIEW HISTORY: sob TECHNIQUE: Portable chest single view COMPARISON: None. FINDINGS: The lungs are well expanded. The heart is not enlarged. The vessels are small. There are no infiltrates. No effusion identified. IMPRESSION: Emphysema Electronically signed by Tyshawn Mosley 02/10/2019 1:26 PM
[2019-02-10 13:49] LABS: BASO# 0.06 X1000 (0.0-0.2); BASO% 0.7 % (0.0-0.8); EOS# 0.52 X1000 (0.0-0.7); EOS% 6.1 % (0.0-10.0); HEMATOCRIT 39.6 % (37.0-47.0); HEMOGLOBIN 12.6 g/dL (12.0-16.0); IMM GRAN# 0.03 X1000 (0.0-0.04); IMM GRAN% 0.4 % (0.0-0.5); LYMPH# 1.79 X1000 (1.2-3.4); LYMPH% 21.2 % (20.5-51.1); MCH 26.6 PG (27-31); MCHC 31.8 g/dL (33-37); MCV 83.7 FL (81-99); MONO# 0.83 X1000 (0.11-0.59); MONO% 9.8 % (1.7-9.3); MPV 10.5 FL (7.4-10.4); NEUT# 5.23 X1000 (1.4-6.5); NEUT% 61.8 % (42.2-75.2); PLT 197 X1000 (130-400); RBC 4.73 XMIL (4.2-5.4); WBC 8.46 X1000 (4.8-10.8)
[2019-02-10 13:59] LABS: INR 0.98; PROTIME 13.8 Seconds (11.0-16.0)
[2019-02-10 14:11] LABS: PTT HEPARIN PROTOCOL 26.6 Seconds
[2019-02-10 14:21] LABS: AGAP 14; ALB/GLOB RATIO 1.8; ALBUMIN 4.4 g/dL (3.5-5.0); ALKALINE PHOSPHATASE 68 U/L (32-104); BUN 12 mg/dL (8-22); CALCIUM 9.1 mg/dL (8.8-10.2); CHLORIDE 102 mmol/L (98-107); COSMO 283; CREATININE 0.6 mg/dL (0.5-0.9); ESTIMATED GFR > 60; GLUCOSE 168 mg/dL (70-104); GOT 18 U/L (10-30); GPT 8 U/L (10-36); POTASSIUM 4.6 mmol/L (3.5-5.1); SODIUM 140 mmol/L (136-145); TCO2 24 mmol/L (25-35); TOTAL BILIRUBIN 0.28 mg/dL (0.20-1.00); TOTAL PROTEIN 6.9 g/dL (6.3-8.3)
[2019-02-10] MEDS ORDERED: LASIX IV ONE (15:00)
--- NOTE | 2019-02-10 15:08 | PROVIDER DOCUMENTATION ---
This chart was entered by Kalie Parham Scribe, acting as scribe for Brett Quintero MD. HPI-Respiratory General - General Chief Complaint: B/P Problems Stated Complaint: BP DOWN Time Seen by Provider: 02/10/19 12:57 Source: patient Allergies/Adverse Reactions: Patient Allergies Allergy/AdvReac Type Severity Reaction Status Date / Time naproxen [From Aleve] Allergy Severe comatose Verified 01/01/19 17:32 Home Medications: Home Medication List Medication Instructions Recorded Confirmed Last Taken Type ROSUVAstatin [Crestor] 10 mg PO DAILY 08/28/17 01/02/19 1 Day Ago History ~01/01/19 Escitalopram [Lexapro] 10 mg PO DAILY 09/29/18 01/02/19 1 Day Ago History ~01/01/19 BENAZEpril [Lotensin] 10 mg PO BID tablet 10/02/18 01/02/19 1 Day Ago Rx ~01/01/19 Baclofen 10 mg PO TID #0 10/08/18 01/02/19 1 Day Ago Rx ~01/01/19 Gabapentin 300 mg PO BID #60 10/08/18 01/02/19 1 Day Ago Rx ~01/01/19 Sitagliptin Phos/Metformin HCl 1 tab PO BID 11/26/18 01/02/19 1 Day Ago History [Janumet 50-1,000 mg Tablet] ~01/01/19 Acetaminophen [Tylenol] 650 mg PO Q6H PRN PRN tab 01/06/19 Unknown Rx Albuterol 2.5MG/Ipratrop 0.5MG 3 ml INH RTQ4H neb 01/06/19 Unknown Rx [Duoneb (A & A)] Levofloxacin [Levaquin] 750 mg PO DAILY #7 tab 01/06/19 Unknown Rx Prednisone 15 mg PO DAILY tab 01/06/19 Unknown Rx Ranitidine HCl [Zantac] 150 mg PO BID #30 tab 01/06/19 Unknown Rx - History of Present Illness-Resp Nature of Presenting Problem: Patient is a 79 year old female who presents with shortness of breath. Patient's O2 sat was 85% on 2 L on arrival to the ED. Patient was placed on 3 L of oxygen and her O2 sat increased to 94%. Patient denies chest pain. Family reports patient is currently on an antibiotic for a cold. Quality of Pain: reports: none Severity in ED: reports: mild Onset/Duration: reports: unsure Timing: reports: still present Modifying Factors: improves with: nothing Associated Symptoms: reports: shortness of breath Similar Symptoms Previously?: No Recently seen or treated by another doctor?: Yes Review of Systems - Adult - REVIEW OF SYSTEMS - ADULT Constitutional: reports: no symptoms reported. denies: chills, fever, fatique Eyes: reports: no symptoms reported Ears, Nose, Mouth & Throat: reports: no symptoms reported Cardiovascular: reports: no symptoms reported. denies: chest pain, orthopnea, palpitations Respiratory: reports: see HPI, shortness of breath. denies: cough, wheezing Gastrointestinal: reports: no symptoms reported Genitourinary: reports: no symptoms reported Musculoskeletal: reports: no symptoms reported Integumentary: reports: no symptoms reported Neurological: reports: no symptoms reported Psychiatric: reports: no symptoms reported Endocrine: reports: no symptoms reported Hematologic/Lymphatic: reports: no symptoms reported Allergic/Immunologic: reports: no symptoms reported All Other Systems: Reviewed and Negative Past History - Adult - PAST MEDICAL HISTORY-ADULT Review of Records: reports: Nursing Assessment Review, Medications Reviewed, Social history reviewed & non-contributory. Major Childhood Illnesses: reports: denies history Cardiovascular: reports: HTN, hyperlipidemia Respiratory: reports: COPD Gastrointestinal: reports: GERD Obstetrical/Gynecological: reports: denies history Genitourinary: reports: denies history Musculoskeletal: reports: denies history Neurological: reports: denies history Psychiatric: reports: denies history Endocrine/Immune: reports: Diabetes Diabetes Type: Type 2 Other Conditions: reports: denies history - PRIOR SURGERIES/PROCEDURES Surgical/Procedure History: reports: breast, other (pelvis fx) - IMMUNIZATION STATUS Childhood Immunizations: See Nurse Assessment Flu Vaccine: See Nurse Assessment - FAMILY HISTORY Family History: reviewed, not pertinent - SOCIAL HISTORY Smoking: chew, less than 1 pack/day Provider spent 3-5 mins advising pt. on dangers of tobacco.: Discussed manners to quit use, and f/u contacts for add'l counseling. Substance Use: denies Living Situation: family Physical Exam-General - PHYSICAL EXAM-ADULT Initial Vital Signs Reviewed: Yes - CONSTITUTIONAL General Appearance: alert, no apparent distress, thin. negative: lethargic - HEAD, EARS, NOSE, MOUTH & THROAT HENMT: normal ENT inspection. negative: angioedema, hearing deficit - RESPIRATORY Respiratory: chest non-tender, wheezing (bilateral). negative: crackles, stridor - CARDIOVASCULAR Cardiovascular: normal peripheral pulses, regular rate, rhythm. negative: tachycardia, systolic murmur - GASTROINTESTINAL (ABDOMEN) Abdominal Exam: normal bowel sounds, non tender, soft. negative: guarding, rebound - MUSCULOSKELETAL Extremity: non-tender, normal inspection. negative: deformity - SKIN Integumentary: normal color, normal turgor, warm/dry. negative: cyanosis, ecchymosis, erythema, jaundice - NEUROLOGIC Neurologic: grossly normal. negative: aphasia, facial droop - PSYCHIATRIC Psych/Mental Status: normal mood/affect, oriented x 3. negative: paranoid - HEART Score HEART Score: History: Slightly Suspicious HEART Score: ECG: Non-Specific Repolarization Disturbance/LBBB/PM HEART Score: Age: > or = 65 Years HEART Score: Risk Factors for Atherosclerotic Disease: 1 or 2 Risk Factors HEART Score: Troponin: < or = Normal Limit Total HEART Score:: 4 Progress - PLAN OF CARE/RESULTS Progress/Plan/Lab Results: Vital Signs - 8 hr 02/10/19 12:49 02/10/19 13:19 Temperature 98.1 F Pulse Rate 103 H 89 Respiratory Rate 20 18 Blood Pressure 161/81 O2 Sat by Pulse Oximetry 84 L 93 L Laboratory Results - last 24 hr 02/10/19 02/10/19 02/10/19 13:30 13:30 13:30 WBC 8.46 RBC 4.73 Hgb 12.6 Hct 39.6 MCV 83.7 MCH 26.6 L MCHC 31.8 L RDW Std Deviation 15.0 H Plt Count 197 MPV 10.5 H Immature Gran % (Auto) 0.4 Neut % (Auto) 61.8 Lymph % (Auto) 21.2 [place] % (Auto) 9.8 H Eos % (Auto) 6.1 Baso % (Auto) 0.7 Immature Gran # (Auto) 0.03 Neut # (Auto) 5.23 Lymph # (Auto) 1.79 [place] # (Auto) 0.83 H Eos # (Auto) 0.52 Baso # (Auto) 0.06 PT INR PTT (Heparin Protocol) Sodium 140 Potassium 4.6 Chloride 102 Carbon Dioxide 24 L Anion Gap 14 BUN 12 Creatinine 0.6 Estimated GFR/1.73 m2 > 60 BUN/Creatinine Ratio 20 Glucose 168 H Calculated Osmolality 283 Calcium 9.1 Total Bilirubin 0.28 AST 18 ALT 8 L Alkaline Phosphatase 68 Troponin T Wct-C-Zgosdixoxrl Pept 931 H Total Protein 6.9 Albumin 4.4 Globulin 2.5 Albumin/Globulin Ratio 1.8 02/10/19 02/10/19 13:30 13:30 WBC RBC Hgb Hct MCV MCH MCHC RDW Std Deviation Plt Count MPV Immature Gran % (Auto) Neut % (Auto) Lymph % (Auto) [place] % (Auto) Eos % (Auto) Baso % (Auto) Immature Gran # (Auto) Neut # (Auto) Lymph # (Auto) [place] # (Auto) Eos # (Auto) Baso # (Auto) PT 13.8 INR 0.98 PTT (Heparin Protocol) 26.6 Sodium Potassium Chloride Carbon Dioxide Anion Gap BUN Creatinine Estimated GFR/1.73 m2 BUN/Creatinine Ratio Glucose Calculated Osmolality Calcium Total Bilirubin AST ALT Alkaline Phosphatase Troponin T < 0.010 Abz-J-Unhjkgsmxrd Pept Total Protein Albumin Globulin Albumin/Globulin Ratio Orders Category Date Time Status cxr [CHEST-1 VIEW] [RAD] Stat Exams 02/10/19 13:06 Completed CBC WITH ELECTRONIC DIFF [HEME] Stat Lab 02/10/19 13:30 Completed COMPREHENSIVE METABOLIC PANEL [CHEM] Stat Lab 02/10/19 13:30 Completed PRO B-NATRIURETIC PEPTIDE Stat Lab 02/10/19 13:30 Completed PT [PROTIME WITH INR] [COAG] Stat Lab 02/10/19 13:30 Completed PTT HEPARIN PROTOCOL [COAG] Stat Lab 02/10/19 13:30 Completed TROPONIN T Stat Lab 02/10/19 13:30 Completed Albuterol 2.5MG/Ipratrop 0.5MG [Duoneb (A & A)] Med 02/10/19 13:07 Discontinued 3 ml INH NOW ONE Furosemide [Lasix] Med 02/10/19 15:00 Discontinued 20 mg IV NOW ONE Aerosol Treatments Routine Oth 02/10/19 13:07 Active Aerosol Treatments Stat Oth 02/10/19 13:07 Active EKG [EKG] Stat Ther 02/10/19 12:53 Draft Result Diagrams: 02/10/19 13:30 02/10/19 13:30 - EKG 1 Time of EKG reading by physician:: 13:01 EKG Read and Signed by:: Brett Quintero EKG Interpretation (*Must complete 3 of following elements*): Normal Rate: 91 Rhythm: normal sinus rhythm [place]: normal QRS: normal [place] Interval: normal ST Wave: normal Comments: normal ECG - XRAY 1 XRAY Study: Chest Impression: See EMR Report ( EXAM: CHEST-1 VIEW HISTORY: sob TECHNIQUE: Portable chest single view COMPARISON: None. FINDINGS: The lungs are well expanded. The heart is not enlarged. The vessels are small. There are no infiltrates. No effusion identified. IMPRESSION: Emphysema Electronically signed by Tyshawn Mosley 02/10/2019 1:26 PM 02/10/19 1326 Inte rpreting Physician: Tyshawn Mosley MD Dictated Date/Time: 02/10/19 1326 cc: Brett Quintero MD; Mike Gonsalves MD) - CONSULTS/PCP/HOSPITALIST Notification #1 *Consult/PCP/Hospitalist*: Dr. Gonsalves Time Discussed: 15:06 Reason/Comments: Dr. Quintero consulted with Dr. Gonsalves about patient. Consult Disposition: Admit Departure - Departure Date of Disposition Decision: 02/10/19 Time of Disposition Decision: 15:06 DIAGNOSIS: COPD exacerbation, CHF (congestive heart failure), Hypoxia Disposition: ADMITTED INPATIENT 09 Certified Medical Emergency: Emergent Condition: Fair Referrals and Follow-Ups: Mike Gonsalves MD [Primary Care Provider] - - Critical Care Note This patient required my direct & personal management of CC.: Yes Total Time (mins): 33 Critical Care Statement: This patient required my direct personal management to treat or rule out processes, the absence of which, could potentiallly result in sudden, clinically significant life or limb threatening deterioration. Attestation - Physician/ KORY Attestation Patient care was provided by Advanced Practice Provider:: No The physician spent face to face time with patient:: Yes Advanced Practice Provider documentation review:: Supervising physician onsite and consulted in the evaluation and care of this patient. The physician did have a face to face encounter with the patient. This chart was documented by the indicated scribe, (Kalie Parham Scribe) and accurately reflects the services I performed and decisions made by me, Brett Quintero MD, as attested by the provider's signature.
--- NOTE | 2019-02-10 16:26 | HISTORY AND PHYSICAL ---
CHIEF COMPLAINT: Uncontrolled hypertension. HISTORY OF PRESENT ILLNESS: Ms. Macias is an 79-year-old female patient, was brought to emergency room because of uncontrolled hypertension and physical therapy personnel went to do physical therapy at home. She checked her blood pressure and according to her it was 185 systolic over 100. She called me. The patient did not have any blood pressure medicine. The patient was supposed to be on blood pressure medicine. I recommended her to send patient to the emergency room for evaluation. I evaluated patient yesterday in the office. At that time, her blood pressure was minimally evaluated the patient had chest congestion and cough. I started her on antibiotics, advised to continue bronchodilator treatment which she was doing it. The patient came to the emergency room. Her blood pressure in the ER was 161/81, pulse rate 103, respiration was 20, temperature 98.1 degrees, O2 sat on room air was 84%. The patient was evaluated by ER physician. Her O2 sat was dropping. Chest x-ray done in the emergency room did reveal COPD and questionable mild congestive heart failure. ER physician decided to admit the patient for further care. The patient does have chronic cough with scanty sputum production. No high-grade fever. Occasional chills. No hemoptysis. Denied any nausea or vomiting. The patient was using her nebulizer treatment and oxygen, minimally decreased exercise tolerance. She denied any diarrhea, blood or mucus in the stool. No dysuria or hematuria. Denied abdominal pain. No typical chest pain. The patient does have spasticity both the legs. No heat or cold intolerance. No major weight loss or weight gain. Denied being depressed. Blood sugar was doing fair. No further history available at this time. ALLERGIES: Naproxen. HOME MEDICATION: Includes. Crestor, Lexapro, Lotensin, baclofen, Neurontin, Janumet, Ultram, nebulizer treatment, Zantac. PAST MEDICAL HISTORY: Significant for COPD, bronchiectasis, hypertension and IDDM, history of surgery on aortic valve, spasticity both the legs, history of breast cancer, osteoarthritis, hyperlipidemia, hypertension, gastritis. PERSONAL HISTORY: Single. Nonsmoker. The patient does dip. Denied alcohol or substance abuse. Needs assistance in activities of daily living. FAMILY HISTORY: Noncontributory. One child passed from head and neck cancer, and two from brain and SUPERVISOR CIGAR MAKING HAND cancer, detail of which is not available. REVIEW OF SYSTEMS: As per HPI. PHYSICAL EXAMINATION: GENERAL: Elderly white female patient in mild distress. VITAL SIGNS: Blood pressure on admission 161/81, pulse 103, respirations 20, temperature 98.1. SKIN: Senile turgor. No rash or petechiae. Head atraumatic, normocephalic. Walls conjunctivae. Anicteric sclerae. Extraocular muscle movement normal. NECK: Supple. No JVD, thyromegaly or lymphadenopathy. CHEST: Bilateral good air entry present. Bibasilar crepitation. No rales. Bilateral occasional wheezing. CARDIOVASCULAR: S1 and S2 heard. No gallop or thrill. ABDOMEN: Soft, scaphoid. Bowel sounds present. EXTREMITIES: No cyanosis, clubbing. No acute DVT. CENTRAL NERVOUS SYSTEM: Alert, awake. Able to move all 4 limbs. Answering questions fairly well. Patient does have spasticity both the legs. CONSIDERATION: 1. Patient admitted with acute bronchitis and mild COPD exacerbation. 2. Uncontrolled hypertension. 3. Hyperlipidemia. 4. History suggestive of bronchiectasis. 5. Other problem includes history of surgery on her aortic valve TWAR and niDDM, gastritis and reflux disease. PLAN: Admit patient. Oral steroid bronchodilator treatment. GI and DVT prophylaxis. Overall plan discussed with the patient and daughter. They are in agreement. cc: Mike Gonsalves MD MTDGerard
[2019-02-10] MEDS: DUONEB (A & A) INH SCH ×3 (18:13→22:30)
[2019-02-10] MEDS: PROTONIX IV SCH (19:07)
[2019-02-10] MEDS: SODIUM CHLORIDE 0.9% INJ SCH (19:07)
[2019-02-10] MEDS: LIORESAL PO SCH (19:07)
[2019-02-10] MEDS ORDERED: DUONEB (A & A) INH SCH (19:30)
[2019-02-10] MEDS ORDERED: LOTENSIN PO SCH (21:00)
[2019-02-10] MEDS: JANUVIA PO SCH (22:33)
[2019-02-10] MEDS: NEURONTIN PO SCH (22:33)
[2019-02-10] MEDS: GLUCOPHAGE PO SCH (22:33)
[2019-02-10] MEDS: TYLENOL PO PRN (22:33)
[2019-02-10 23:45] LABS: URINE SOURCE CLEAN CATCH
[2019-02-11 00:18] LABS: BILIRUBIN URINE NEGATIVE (NEGATIVE); BLOOD URINE NEGATIVE (NEGATIVE); COLOR STRAW; GLUCOSE URINE NEGATIVE (NEGATIVE); KETONE URINE NEGATIVE (NEGATIVE); LEUKOCYTES URINE NEGATIVE (NEGATIVE); NITRITE URINE NEGATIVE (NEGATIVE); PROTEIN URINE NEGATIVE (NEGATIVE); SP GRAVITY URINE 1.003; TURBIDITY URINE CLEAR (CLEAR); UROBILINOGEN URINE NORMAL (NORMAL)
[2019-02-11 00:20] LABS: UR EPITHELIAL CELLS <10 /HPF (<10); URINE BACTERIA NEGATIVE /HPF; URINE RBC <10 /HPF (<10); URINE WBC <10 /HPF (<10)
[2019-02-11] MEDS: DUONEB (A & A) INH SCH ×6 (03:20→23:47)
[2019-02-11] MEDS: LOVENOX SUBQ SCH (06:27)
[2019-02-11] MEDS: ROCEPHIN 1 GM in NS 50 ML IV SCH (06:27)
--- NOTE | 2019-02-11 06:48 | PROGRESS NOTE ---
DATE: 02/11/2019 SUBJECTIVE: Ms. Macias is doing fair. The patient still has cough and wheezing, some expectoration, at times shortness of breath. No nausea or vomiting. OBJECTIVE: Vital signs: Noted. Chest: No typical chest pain or palpitation. Skin: Senile turgor. Neck: Supple. No JVD. Lungs: Bilateral occasional wheezing. Cardiovascular system: S1 and S2 heard. Abdomen: Soft. No distention. Bowel sounds present. Extremities: No cyanosis, clubbing. No acute DVT. GENERAL ROAD PRODUCTION MANAGER: Alert, awake, answering questions fairly well. The patient does have spasticity both the legs. ASSESSMENT: 1. The patient admitted with acute asthmatic bronchitis. 2. Uncontrolled hypertension. 3. Gastritis. 4. Diabetes mellitus. PLAN: I am going to try bronchodilator treatment, steroid, antibiotics. Resume blood pressure medicine. Monitor patient. If clinical condition permits, will plan discharging her home tomorrow. cc: Mike Gonsalves MD
[2019-02-11 07:51] LABS: BASO# 0.07 X1000 (0.0-0.2); BASO% 1.1 % (0.0-0.8); EOS# 0.59 X1000 (0.0-0.7); EOS% 9.7 % (0.0-10.0); HEMATOCRIT 39.8 % (37.0-47.0); HEMOGLOBIN 12.4 g/dL (12.0-16.0); LYMPH# 2.19 X1000 (1.2-3.4); MCH 26.4 PG (27-31); MCHC 31.2 g/dL (33-37); MCV 84.7 FL (81-99); MONO# 0.65 X1000 (0.11-0.59); MONO% 10.7 % (1.7-9.3); MPV 10.2 FL (7.4-10.4); NEUT# 2.59 X1000 (1.4-6.5); NEUT% 42.5 % (42.2-75.2); PLT 195 X1000 (130-400); WBC 6.09 X1000 (4.8-10.8)
[2019-02-11 08:17] LABS: AGAP 9; ALB/GLOB RATIO 1.7; ALBUMIN 4.2 g/dL (3.5-5.0); ALKALINE PHOSPHATASE 65 U/L (32-104); BUN 14 mg/dL (8-22); CALCIUM 9.3 mg/dL (8.8-10.2); CHLORIDE 99 mmol/L (98-107); COSMO 287; CREATININE 0.6 mg/dL (0.5-0.9); ESTIMATED GFR > 60; GLUCOSE 131 mg/dL (70-104); GOT 15 U/L (10-30); GPT 6 U/L (10-36); MAGNESIUM 1.9 mg/dL (1.5-2.7); POTASSIUM 4.3 mmol/L (3.5-5.1); SODIUM 143 mmol/L (136-145); TCO2 35 mmol/L (25-35); TOTAL BILIRUBIN 0.23 mg/dL (0.20-1.00); TOTAL PROTEIN 6.7 g/dL (6.3-8.3)
[2019-02-11] MEDS ORDERED: LOTENSIN PO SCH (09:00)
[2019-02-11] MEDS: GLUCOPHAGE PO SCH ×2 (09:02→21:20)
[2019-02-11] MEDS: LEXAPRO PO SCH (09:02)
[2019-02-11] MEDS: JANUVIA PO SCH ×2 (09:02→21:20)
[2019-02-11] MEDS: LIORESAL PO SCH ×3 (09:02→17:03)
[2019-02-11] MEDS: PREDNISONE PO SCH (09:02)
[2019-02-11] MEDS: NEURONTIN PO SCH ×2 (09:03→21:20)
[2019-02-11] MEDS: CRESTOR PO SCH (09:03)
[2019-02-11] MEDS: PROTONIX IV SCH (17:03)
[2019-02-11] MEDS: SODIUM CHLORIDE 0.9% INJ SCH (17:03)
[2019-02-12] MEDS: DUONEB (A & A) INH SCH ×5 (03:22→19:53)
[2019-02-12] MEDS: ROCEPHIN 1 GM in NS 50 ML IV SCH (05:39)
[2019-02-12] MEDS: LOVENOX SUBQ SCH (05:40)
[2019-02-12] MEDS: TYLENOL PO PRN (05:51)
--- NOTE | 2019-02-12 06:38 | PROGRESS NOTE ---
DATE: 02/12/2019 SUBJECTIVE: Ms. Mcaias is doing better. The patient is this morning complaining of more shortness of breath and wheezing. Scanty sputum production. No high-grade fever or chills. Complaining of pain in the hip. No nausea or vomiting. Denied any diarrhea, blood, or mucus in the stool. OBJECTIVE: Vital Signs: Her vital signs are noted. Neck: Supple. No JVD. Lungs: Bilateral wheezing. No movement of accessory muscle of respiration. Cardiovascular: S1 and S2 heard. Abdomen: Soft, nontender. Bowel sounds present. Central Nervous System: Alert, awake, able to move all 4 limbs. LABORATORY DATA: The patient's lab data done yesterday noted. Hemoglobin 12.4, hematocrit 39.8. ASSESSMENT: The patient's problems include: 1. Acute exacerbation of chronic obstructive pulmonary disease, most likely due to bronchitis. The patient does have a history of bronchiectasis. 2. Chronic pain. 3. Spasticity of both the legs. 4. History of aortic valve repair. 5. Insulin dependent diabetes mellitus. PLAN: Her blood pressure was low normal. I am going to decrease her Lotensin to 5 mg a day. We will continue current treatment. Close observation. Physical therapy evaluation. Tramadol for pain. The overall plan was discussed with the patient, and she is in agreement. cc: Mike Gonsalves MD
[2019-02-12 07:39] LABS: BASO# 0.03 X1000 (0.0-0.2); BASO% 0.4 % (0.0-0.8); EOS# 0.27 X1000 (0.0-0.7); HEMATOCRIT 39.3 % (37.0-47.0); HEMOGLOBIN 12.3 g/dL (12.0-16.0); LYMPH# 2.78 X1000 (1.2-3.4); LYMPH% 40.8 % (20.5-51.1); MCH 26.4 PG (27-31); MCHC 31.3 g/dL (33-37); MCV 84.3 FL (81-99); MONO# 0.74 X1000 (0.11-0.59); MONO% 10.9 % (1.7-9.3); MPV 10.8 FL (7.4-10.4); NEUT% 43.9 % (42.2-75.2); PLT 180 X1000 (130-400); RBC 4.66 XMIL (4.2-5.4); WBC 6.82 X1000 (4.8-10.8)
[2019-02-12] MEDS: MUCOMYST 20% INH SCH ×2 (07:49→19:53)
[2019-02-12 07:59] LABS: AGAP 10; ALB/GLOB RATIO 1.5; ALBUMIN 4.1 g/dL (3.5-5.0); ALKALINE PHOSPHATASE 61 U/L (32-104); BUN 18 mg/dL (8-22); CALCIUM 9.1 mg/dL (8.8-10.2); CHLORIDE 98 mmol/L (98-107); COSMO 279; CREATININE 0.5 mg/dL (0.5-0.9); ESTIMATED GFR > 60; GLUCOSE 128 mg/dL (70-104); GOT 13 U/L (10-30); GPT 7 U/L (10-36); MAGNESIUM 1.8 mg/dL (1.5-2.7); POTASSIUM 4.1 mmol/L (3.5-5.1); SODIUM 138 mmol/L (136-145); TCO2 30 mmol/L (25-35); TOTAL PROTEIN 6.9 g/dL (6.3-8.3)
[2019-02-12] MEDS: NEURONTIN PO SCH ×2 (08:28→21:24)
[2019-02-12] MEDS: JANUVIA PO SCH ×2 (08:28→21:24)
[2019-02-12] MEDS: LOTENSIN PO SCH (08:29)
[2019-02-12] MEDS: GLUCOPHAGE PO SCH ×2 (08:29→21:24)
[2019-02-12] MEDS: LIORESAL PO SCH ×3 (08:30→17:55)
[2019-02-12] MEDS: PREDNISONE PO SCH (08:30)
[2019-02-12] MEDS: DOXYCYCLINE PO SCH ×2 (08:30→21:24)
[2019-02-12] MEDS: LEXAPRO PO SCH (08:30)
[2019-02-12] MEDS: CRESTOR PO SCH (08:33)
[2019-02-12] MEDS: ULTRAM PO PRN (08:36)
[2019-02-12] MEDS: SODIUM CHLORIDE 0.9% INJ SCH (17:55)
[2019-02-12] MEDS: PROTONIX IV SCH (17:55)
[2019-02-13] MEDS: DUONEB (A & A) INH SCH ×6 (03:55→20:24)
[2019-02-13] MEDS: ULTRAM PO PRN (06:00)
[2019-02-13] MEDS: ROCEPHIN 1 GM in NS 50 ML IV SCH (06:01)
[2019-02-13] MEDS: LOVENOX SUBQ SCH (06:01)
[2019-02-13] MEDS: LEXAPRO PO SCH (08:37)
[2019-02-13] MEDS: JANUVIA PO SCH ×2 (08:37→21:30)
[2019-02-13] MEDS: LOTENSIN PO SCH (08:37)
[2019-02-13] MEDS: LIORESAL PO SCH ×3 (08:37→16:41)
[2019-02-13] MEDS: GLUCOPHAGE PO SCH ×2 (08:37→21:30)
[2019-02-13] MEDS: PREDNISONE PO SCH (08:37)
[2019-02-13] MEDS: CRESTOR PO SCH (08:38)
[2019-02-13] MEDS: NEURONTIN PO SCH ×2 (08:38→21:30)
[2019-02-13] MEDS: DOXYCYCLINE PO SCH ×2 (08:38→21:30)
[2019-02-13] MEDS: MUCOMYST 20% INH SCH ×2 (11:01→20:24)
--- NOTE | 2019-02-13 12:54 | PROGRESS NOTE ---
DATE: 02/13/2019 SUBJECTIVE: An 79-year-old white female was admitted to the hospital 3 days ago with uncontrolled hypertension. The patient also has significant difficulty in breathing and Non-productive cough. REVIEW OF SYSTEMS: Shortness of breath, cough, wheezing. No chest pain. PAST MEDICAL HISTORY: Reviewed. PAST SURGICAL HISTORY: Reviewed. MEDICINES: Reviewed. ALLERGIES: Naprosyn. PHYSICAL EXAMINATION: Vital signs: Temperature 98.4 degrees, pulse 79, blood pressure 115/63, 2 L nasal cannula 95%. General: He is in mild respiratory distress and wheezing. HEENT: Within normal limits. Chest: Bilateral wheezing. Heart: Distant heart sounds. Abdomen: Belly is soft. Genitourinary: She is in diapers. Extremities: No peripheral edema. Neurologic: No obvious neurological deficits. INVESTIGATIONS: CBC: White cell count 6.8, hematocrit 39, platelets 180,000. SMA-7 is normal. Glucose 128. Liver function tests were normal. ProBNP 930. Cardiac enzymes were negative. Urinalysis is clear. Chest x-ray, COPD. ASSESSMENT AND PLAN: 1. Acute chronic obstructive pulmonary disease exacerbation on oxygen, bronchodilators, IV ceftriaxone, prednisone 15 mg daily, doxycycline 100 p.o. b.i.d. 2. Possible urinary tract infection. Urinalysis and culture and sensitivity. 3. Deep venous thrombosis prophylaxis with Lovenox. 4. Type 2 diabetes on metformin 1000 p.o. b.i.d., Januvia 50 p.o. b.i.d. 5. Gastrointestinal prophylaxis with IV Protonix. 6. Hyperlipidemia, on Crestor. 7. Hypertension, currently Lotensin 5 mg daily and currently stable. We will continue to monitor. LEVEL OF DOCUMENTATION: 35 minutes. cc: MD Mike Melendez MD MTDD
[2019-02-13 15:24] LABS: URINE SOURCE CATH
[2019-02-13 15:33] LABS: BILIRUBIN URINE NEGATIVE (NEGATIVE); BLOOD URINE NEGATIVE (NEGATIVE); COLOR YELLOW; GLUCOSE URINE NEGATIVE (NEGATIVE); KETONE URINE NEGATIVE (NEGATIVE); LEUKOCYTES URINE NEGATIVE (NEGATIVE); NITRITE URINE NEGATIVE (NEGATIVE); PROTEIN URINE NEGATIVE (NEGATIVE); SP GRAVITY URINE 1.005; TURBIDITY URINE HAZY (CLEAR); UROBILINOGEN URINE NORMAL (NORMAL)
[2019-02-13 15:40] LABS: UR EPITHELIAL CELLS <10 /HPF (<10); URINE BACTERIA NEGATIVE /HPF; URINE RBC <10 /HPF (<10); URINE WBC <10 /HPF (<10)
[2019-02-13 15:43] LABS: URINE CASTS NONE SEEN; URINE CRYSTALS NONE SEEN; URINE SMALL ROUND CELLS NONE SEEN; URINE YEAST NONE SEEN
[2019-02-13] MEDS: PROTONIX IV SCH (16:41)
[2019-02-14] MEDS: DUONEB (A & A) INH SCH ×8 (01:06→23:52)
[2019-02-14] MEDS: ROCEPHIN 1 GM in NS 50 ML IV SCH (06:41)
[2019-02-14] MEDS: LOVENOX SUBQ SCH (06:41)
[2019-02-14] MEDS: PREDNISONE PO SCH (09:08)
[2019-02-14] MEDS: NEURONTIN PO SCH ×2 (09:09→21:09)
[2019-02-14] MEDS: GLUCOPHAGE PO SCH ×2 (09:09→21:09)
[2019-02-14] MEDS: LIORESAL PO SCH ×3 (09:09→16:38)
[2019-02-14] MEDS: CRESTOR PO SCH (09:09)
[2019-02-14] MEDS: DOXYCYCLINE PO SCH ×2 (09:09→21:09)
[2019-02-14] MEDS: LOTENSIN PO SCH (09:09)
[2019-02-14] MEDS: JANUVIA PO SCH ×2 (09:09→21:09)
[2019-02-14] MEDS: LEXAPRO PO SCH (09:09)
[2019-02-14] MEDS: MUCOMYST 20% INH SCH ×2 (09:39→19:55)
--- NOTE | 2019-02-14 14:04 | PROGRESS NOTE ---
DATE: 02/14/2019 SUBJECTIVE: The patient is a little better than yesterday. Breathing status improved. Continues have productive cough. REVIEW OF SYSTEMS: Decreased cough, wheezing. No GI symptoms. No UTI symptoms. The nurses changed the diapers yesterday; foul-smelling urine noted. PHYSICAL EXAMINATION: Temperature is 97.2 degrees, pulse is 83, blood pressure 135/60, 98% on room air. HEENT exam within normal limits.Chest: There is poor air entry, decreased rhonchi and wheezing. Distant heart sounds. Belly is soft, nontender. She is in diapers. No peripheral edema. No obvious neurological deficits noted. DIAGNOSTIC STUDIES: Laboratory data none reported. Blood sugar is normal. Repeat urine culture is clean. ASSESSMENT AND PLAN: 1. Acute chronic obstructive pulmonary disease exacerbation. Currently on oxygen, bronchodilators, IV ceftriaxone, doxycycline, prednisone 15 mg. 2. Possible urinary tract infection. So far is negative. 3. Deep venous thrombosis prophylaxis with Lovenox. 4. Type 2 diabetes. On metformin 1000 p.o. b.i.d., Januvia 50 p.o. b.i.d. 5. Gastrointestinal prophylaxis. IV Protonix. 6. Hyperlipidemia. On Crestor. 7. Hypertension. Currently on Lotensin. Currently, she is stable. Continue present treatment. Chest x-ray was emphysema at the time of admission, and she is anxious to go home. Dr. Gonsalves is going to follow up. Continue present treatment. LEVEL OF DOCUMENTATION: 25 minutes. cc: MD Mike Melendez MD
[2019-02-14] MEDS: PROTONIX IV SCH (16:39)
[2019-02-14] MEDS: ULTRAM PO PRN (21:14)
[2019-02-15] MEDS: DUONEB (A & A) INH SCH ×3 (03:46→11:08)
[2019-02-15] MEDS: ULTRAM PO PRN (06:16)
[2019-02-15] MEDS: ROCEPHIN 1 GM in NS 50 ML IV SCH (06:17)
[2019-02-15] MEDS: LOVENOX SUBQ SCH (06:18)
--- NOTE | 2019-02-15 07:05 | DISCHARGE SUMMARY ---
ADMISSION DATE: 02/10/2019 DISCHARGE DATE: 02/15/2019 FINAL DISCHARGE DIAGNOSES: 1. Chronic obstructive pulmonary disease exacerbation. 2. Bronchitis. 3. Hypertension. 4. Hyperlipidemia. 5. Insulin dependent diabetes mellitus. 6. 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 7. History of breast cancer. 8. Gastritis. HISTORY OF PRESENT ILLNESS: Ms. Macias is an 79-year-old, white female patient admitted with chest congestion, cough, wheezing, shortness of breath and elevated blood pressure. The patient was not taking her blood pressure medicine. The patient came to the emergency room. Evaluated by ER physician and admitted for further care. HOSPITAL COURSE: Patient was treated with IV steroid, pulmonary toilet, bronchodilator treatment. Her clinical condition stabilized and improved. Shortness of breath improved. Blood pressure was getting better. She denied any chest pain or palpitations. The patient seems to be gaining her baseline status and the patient was very eager to go home. OBJECTIVE: Vital Signs: Noted. Neck: Supple. No JVD. Lungs: Bilateral good air entry present. Occasional wheezing. Cardiovascular: S1 and S2 heard. Abdomen: Soft, nontender. Bowel sounds present. CHAIRMAN PRESIDENT AND CHIEF EXECUTIVE OFFICER: Alert, awake. Extremities: Patient does have spasticity in both the legs. ASSESSMENT: Overall patient received maximum benefit of hospitalization. I am planning to discharge her home. She will continue her home medicine. Advised her not to take her Cozaar; instead she will take her Lotensin. Follow up with me in 1 week. We will resume her home health, monitor Accu-Chek and blood pressure at home. Continue bronchodilator treatment. Her proBNP on admission was 931. Blood work done on February 12 sodium 138, potassium 4.1, BUN 18, creatinine 0.5. Urinalysis was benign. CBC WBC count 6.82, hemoglobin 12.3, hematocrit 39.3, platelet count 180,000. Patient chest x-ray revealed COPD. I am going to resume home health. She will take prednisone in tapering dose. Prescription for doxycycline and also Lotensin given. Monitor blood pressure Accu-Chek at home. In case of more distress, call us back or go to emergency room. cc: Mike Gonsalves MD
[2019-02-15] MEDS: MUCOMYST 20% INH SCH (07:31)
[2019-02-15] MEDS: JANUVIA PO SCH (08:19)
[2019-02-15] MEDS: GLUCOPHAGE PO SCH (08:19)
[2019-02-15] MEDS: LIORESAL PO SCH ×2 (08:19→13:18)
[2019-02-15] MEDS: LOTENSIN PO SCH (08:19)
[2019-02-15] MEDS: DOXYCYCLINE PO SCH (08:20)
[2019-02-15] MEDS: LEXAPRO PO SCH (08:20)
[2019-02-15] MEDS: NEURONTIN PO SCH (08:20)
[2019-02-15] MEDS: CRESTOR PO SCH (08:20)
[2019-02-15] MEDS ORDERED: PREDNISONE PO SCH (09:00)
[2019-02-15 11:14] VITALS: BP 148/62
[2019-02-15] MEDS ORDERED: PNEUMOVAX 23 IM ONE (11:21)
== END 2019-02-15 13:30 | disposition home health service (06) | DRG 192 ==
LOC: ED 12:45 → EDIPHOLD 15:33 → 3N 16:53
PROVIDERS: ADMIT Internal Medicine; ATTEND Internal Medicine
CPT/HCPCS: 71010; 71045; 80053; 81001; 82948; 83735; 83880; 84484; 85025; 85610; 85730; 90732; 93005; 94640; 94761; 96374; 99284; A9270; C9113; J0696; J1650; J1940; J7506; J7512; S0164; XXXXX

== ENCOUNTER 2019-02-20 08:11 | Inpatient (IN) ==
[2019-02-20] MEDS ORDERED: ALBUTEROL NEB INH ONE (08:15)
[2019-02-20] MEDS ORDERED: SOLU-MEDROL IV ONE (08:18)
[2019-02-20 08:47] LABS: BASO# 0.04 X1000 (0.0-0.2); BASO% 0.5 % (0.0-0.8); EOS# 0.19 X1000 (0.0-0.7); EOS% 2.2 % (0.0-10.0); HEMATOCRIT 41.9 % (37.0-47.0); HEMOGLOBIN 13.2 g/dL (12.0-16.0); IMM GRAN# 0.02 X1000 (0.0-0.04); IMM GRAN% 0.2 % (0.0-0.5); LYMPH# 1.63 X1000 (1.2-3.4); LYMPH% 19.1 % (20.5-51.1); MCH 26.6 PG (27-31); MCHC 31.5 g/dL (33-37); MCV 84.3 FL (81-99); MONO# 0.61 X1000 (0.11-0.59); MONO% 7.2 % (1.7-9.3); MPV 10.8 FL (7.4-10.4); NEUT# 6.04 X1000 (1.4-6.5); NEUT% 70.8 % (42.2-75.2); PLT 170 X1000 (130-400); RBC 4.97 XMIL (4.2-5.4); RDW 14.9 % (11.5-14.5); WBC 8.53 X1000 (4.8-10.8)
[2019-02-20 08:55] LABS: INR 0.97; PROTIME 13.7 Seconds (11.0-16.0)
[2019-02-20 08:56] LABS: PTT 26.1 Seconds (22.3-41.8)
[2019-02-20 09:12] LABS: AGAP 12; ALB/GLOB RATIO 1.7; ALBUMIN 4.4 g/dL (3.5-5.0); ALKALINE PHOSPHATASE 70 U/L (32-104); BUN 14 mg/dL (8-22); CALCIUM 8.9 mg/dL (8.8-10.2); CHLORIDE 94 mmol/L (98-107); CK PROFILE 68 U/L (24-173); COSMO 280; CREATININE 0.4 mg/dL (0.5-0.9); ESTIMATED GFR > 60; GLUCOSE 176 mg/dL (70-104); GOT 17 U/L (10-30); GPT 10 U/L (10-36); POTASSIUM 4.2 mmol/L (3.5-5.1); SODIUM 138 mmol/L (136-145); TCO2 32 mmol/L (25-35); TOTAL BILIRUBIN 0.38 mg/dL (0.20-1.00)
--- NOTE | 2019-02-20 09:18 | Diag Imaging Result Doc PS360 ---
EXAM: CHEST-2 VIEWS HISTORY: sob TECHNIQUE: Chest two views COMPARISON: 02/10/2019 FINDINGS: The lungs are hyperexpanded. The heart is not enlarged. The vessels are small. There are no infiltrates. No pleural effusions. IMPRESSION: Emphysema Electronically signed by Tyshawn Mosley 02/20/2019 9:16 AM
--- NOTE | 2019-02-20 09:28 | PROVIDER DOCUMENTATION ---
HPI-Respiratory General - General Chief Complaint: Shortness of Breath Stated Complaint: SOB Time Seen by Provider: 02/20/19 08:13 Source: patient, family, EMS Allergies/Adverse Reactions: Patient Allergies Allergy/AdvReac Type Severity Reaction Status Date / Time naproxen [From Aleve] Allergy Severe comatose Verified 01/01/19 17:32 Home Medications: Home Medication List Medication Instructions Recorded Confirmed Last Taken Type Escitalopram [Lexapro] 10 mg PO DAILY 09/29/18 02/20/19 1 Day Ago History ~01/01/19 Gabapentin 300 mg PO BID #60 10/08/18 02/20/19 1 Day Ago Rx ~01/01/19 Sitagliptin Phos/Metformin HCl 1 tab PO BID 11/26/18 02/20/19 1 Day Ago History [Janumet 50-1,000 mg Tablet] ~01/01/19 Acetaminophen [Tylenol] 650 mg PO Q6H PRN PRN tab 01/06/19 02/20/19 Unknown Rx Albuterol 2.5MG/Ipratrop 0.5MG 3 ml INH RTQ4H neb 01/06/19 02/20/19 Unknown Rx [Duoneb (A & A)] Ranitidine HCl [Zantac] 150 mg PO BID #30 tab 01/06/19 02/20/19 Unknown Rx Letrozole 2.5 mg PO DAILY 02/11/19 02/20/19 Unknown History BENAZEpril [Lotensin] 5 mg PO DAILY tab 02/15/19 02/20/19 Unknown Rx Baclofen [Lioresal] 10 mg PO TID tab 02/15/19 02/20/19 Unknown Rx ROSUVAstatin [Crestor] 10 mg PO DAILY tab 02/15/19 02/20/19 Unknown Rx Tramadol [Ultram] 50 mg PO TID PRN PRN tab 02/15/19 02/20/19 Unknown Rx - History of Present Illness-Resp Nature of Presenting Problem: Patient with COPD, worsening shortness of breath, increased her home O2 from 2L to 3L at her pcp instructions. Today she became much worse. Denies fever. Quality of Pain: reports: none Severity in ED: reports: severe (required immediate attention upon arrival) Onset/Duration: reports: gradual, 2 days ago Timing: reports: getting worse Context: reports: other (COPD) Cough Quality/Degree: reports: moderate Current Respiratory Medication Therapy: Initiated see nurses note Modifying Factors: improves with: exertion Similar Symptoms Previously?: Yes Recently seen or treated by another doctor?: Yes Review of Systems - Adult - REVIEW OF SYSTEMS - ADULT Constitutional: reports: no symptoms reported Eyes: reports: no symptoms reported Ears, Nose, Mouth & Throat: reports: no symptoms reported Cardiovascular: reports: no symptoms reported Respiratory: reports: see HPI Gastrointestinal: reports: no symptoms reported Past History - Adult - PAST MEDICAL HISTORY-ADULT Review of Records: reports: Old Records Reviewed Major Childhood Illnesses: reports: denies history Cardiovascular: reports: HTN Respiratory: reports: COPD Gastrointestinal: reports: GERD Obstetrical/Gynecological: reports: denies history Genitourinary: reports: denies history Musculoskeletal: reports: denies history Neurological: reports: denies history Psychiatric: reports: denies history Endocrine/Immune: reports: Diabetes Other Conditions: reports: denies history - PRIOR SURGERIES/PROCEDURES Surgical/Procedure History: reports: breast, other (pelvis fx) - IMMUNIZATION STATUS Childhood Immunizations: See Nurse Assessment Flu Vaccine: See Nurse Assessment - FAMILY HISTORY Family History: reviewed, not pertinent Physical Exam-General - PHYSICAL EXAM-ADULT Initial Vital Signs Reviewed: Yes - CONSTITUTIONAL General Appearance: moderate distress - EYES Eyes: pink conjunctivae - HEAD, EARS, NOSE, MOUTH & THROAT HENMT: normocephalic/atraumatic - NECK Neck: non-tender, full range of motion - RESPIRATORY Respiratory: respiratory distress, decreased breath sounds, accessory muscle use , wheezing, increased rate - CARDIOVASCULAR Cardiovascular: regular rate, rhythm - GASTROINTESTINAL (ABDOMEN) Abdominal Exam: non tender, soft - MUSCULOSKELETAL Back Exam: no CVA tenderness Extremity: normal inspection, no pedal edema - SKIN Integumentary: normal color - NEUROLOGIC 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 as tested, grossly normal - PSYCHIATRIC Psych/Mental Status: normal mood/affect, normal thought content Progress - PLAN OF CARE/RESULTS Progress/Plan/Lab Results: Vital Signs - 8 hr 02/20/19 08:13 02/20/19 08:20 Temperature 97.7 F Pulse Rate 104 H 98 H Respiratory Rate 24 27 H Blood Pressure 154/87 O2 Sat by Pulse Oximetry 94 L 98 Laboratory Results - last 24 hr 02/20/19 02/20/19 02/20/19 08:35 08:35 08:35 WBC 8.53 RBC 4.97 Hgb 13.2 Hct 41.9 MCV 84.3 MCH 26.6 L MCHC 31.5 L RDW Std Deviation 14.9 H Plt Count 170 MPV 10.8 H Immature Gran % (Auto) 0.2 Neut % (Auto) 70.8 Lymph % (Auto) 19.1 L Kershaw % (Auto) 7.2 Eos % (Auto) 2.2 Baso % (Auto) 0.5 Immature Gran # (Auto) 0.02 Neut # (Auto) 6.04 Lymph # (Auto) 1.63 Kershaw # (Auto) 0.61 H Eos # (Auto) 0.19 Baso # (Auto) 0.04 PT INR PTT (Actin FS) Sodium 138 Potassium 4.2 Chloride 94 L Carbon Dioxide 32 Anion Gap 12 BUN 14 Creatinine 0.4 L Estimated GFR/1.73 m2 > 60 BUN/Creatinine Ratio 35 Glucose 176 H Calculated Osmolality 280 Calcium 8.9 Total Bilirubin 0.38 AST 17 ALT 10 Alkaline Phosphatase 70 Creatine Kinase 68 Troponin T Jrv-D-Vqvonqfqyta Pept 647 H Total Protein 7.0 Albumin 4.4 Globulin 2.6 Albumin/Globulin Ratio 1.7 02/20/19 02/20/19 08:35 08:35 WBC RBC Hgb Hct MCV MCH MCHC RDW Std Deviation Plt Count MPV Immature Gran % (Auto) Neut % (Auto) Lymph % (Auto) Kershaw % (Auto) Eos % (Auto) Baso % (Auto) Immature Gran # (Auto) Neut # (Auto) Lymph # (Auto) Kershaw # (Auto) Eos # (Auto) Baso # (Auto) PT 13.7 INR 0.97 PTT (Actin FS) 26.1 Sodium Potassium Chloride Carbon Dioxide Anion Gap BUN Creatinine Estimated GFR/1.73 m2 BUN/Creatinine Ratio Glucose Calculated Osmolality Calcium Total Bilirubin AST ALT Alkaline Phosphatase Creatine Kinase Troponin T < 0.010 Khf-K-Mdplkjrxpic Pept Total Protein Albumin Globulin Albumin/Globulin Ratio Orders Category Date Time Status Admit - [facility] Routine AdmDCTranf 02/20/19 09:33 Active Cardiac Monitoring DIRECTED Care 02/20/19 08:12 Completed Saline Loc NOW Care 02/20/19 08:12 Completed CHEST-2 VIEWS [RAD] Stat Exams 02/20/19 08:12 Completed CBC WITH ELECTRONIC DIFF [HEME] Stat Lab 02/20/19 08:35 Completed CK PROFILE [SP CHEM] Stat Lab 02/20/19 08:35 Completed COMPREHENSIVE METABOLIC PANEL [CHEM] Stat Lab 02/20/19 08:35 Completed PRO B-NATRIURETIC PEPTIDE Stat Lab 02/20/19 08:35 Completed PROTIME WITH INR [COAG] Stat Lab 02/20/19 08:35 Completed PTT [COAG] Stat Lab 02/20/19 08:35 Completed TROPONIN T Stat Lab 02/20/19 08:35 Completed Albuterol 2.5MG/Ipratrop 0.5MG [Duoneb (A & A)] Med 02/20/19 11:30 Active 3 ml INH RTQ4H.WA Albuterol [Albuterol Neb] Med 02/20/19 08:15 Discontinued 2.5 mg INH NOW ONE Methylprednisolone Sod Succ [Solu-Medrol] Med 02/20/19 08:18 Discontinued 125 mg IV NOW ONE Aerosol Treatments Routine Oth 02/20/19 08:16 Completed Aerosol Treatments Routine Oth 02/20/19 10:15 Active Aerosol Treatments Stat Oth 02/20/19 08:16 Completed Aerosol Treatments Stat Oth 02/20/19 10:15 Active EKG [EKG] Stat Ther 02/20/19 08:12 Ordered Transfer/Admit Order [TRANSFER] Routine Transfer 02/20/19 09:34 Completed Result Diagrams: 02/20/19 08:35 02/20/19 08:35 - REASSESSMENT Reassessment #1 Status: unchanged (still wheezing, dyspneic in distress after hour long neb) - CONSULTS/PCP/HOSPITALIST Notification #1 *Consult/PCP/Hospitalist*: Dr. Marte Time Discussed: 09:31 Consult Disposition: Admit Departure - Departure Date of Disposition Decision: 02/20/19 Time of Disposition Decision: 10:00 DIAGNOSIS: COPD exacerbation Disposition: ADMITTED INPATIENT 09 Certified Medical Emergency: Emergent Condition: Serious - Critical Care Note This patient required my direct & personal management of CC.: Yes Total Time (mins): 39 Critical Care Statement: This patient required my direct personal management to treat or rule out processes, the absence of which, could potentiallly result in sudden, clinically significant life or limb threatening deterioration. Attestation - Physician/ KORY Attestation The physician spent face to face time with patient:: Yes Advanced Practice Provider documentation review:: Supervising physician onsite and consulted in the evaluation and care of this patient. The physician did have a face to face encounter with the patient.
[2019-02-20] MEDS: DUONEB (A & A) INH SCH ×4 (11:51→23:29)
--- NOTE | 2019-02-20 13:47 | HISTORY AND PHYSICAL ---
HISTORY OF PRESENT ILLNESS: Ms. Macias who is 79-year-old white female, a patient of Dr. Anna, a known case of COPD, mild hypertension, and diabetes, was brought to the emergency room last night with shortness of breath. She thought she had pneumonia. She was admitted this morning. She lives at home and has been feeling problems with severe respiratory distress and came to the emergency room. She was found to have acute exacerbation of COPD; hence, it was decided to put her in the hospital. OTHER DETAILS: She says she is a nonsmoker. She drank in the past. ALLERGIES: She is allergic to Naprosyn. REVIEW OF SYSTEMS: She has some persistent cough with expectoration. Occasional chest pain on the left side. She denies having any history of hemoptysis. MEDICATIONS: Her medications included Lotensin as well as tramadol, nebulizer with DuoNeb, metformin, and escitalopram. PHYSICAL EXAMINATION: VITAL SIGNS: Reveal temperature normal, pulse 88 per minute, respiratory rate 20 per minute, blood pressure 130/68. HEENT: Head normocephalic. Pupils: PERRLA. Fundus examination not done. ENT examination unremarkable. NECK: Supple. JVP normal. There is no evidence of lymphadenopathy, thyroid enlargement, pedal edema, calf tenderness, anemia, cyanosis, or clubbing. Pedal pulses well felt. BREAST: Normal. CHEST: Normal on inspection. LUNGS: Reveal bilateral expiratory wheezing and occasional basal rales. CARDIOVASCULAR: PMI in the normal position. Heart sounds normal. No murmur, gallop, or rub noted. ABDOMEN: Nondistended. Hernial orifices normal. No guarding, rigidity, free fluid, masses, or organomegaly. Bowel sounds normal. RECTAL: Deferred. CENTRAL NERVOUS SYSTEM: Higher functions: Patient is somewhat obtunded. Cranial nerves normal. Motor and sensory system examination unremarkable. Deep tendon reflexes normal. Plantars downgoing. Skull and spine examination normal for age. No cerebellar signs or signs of meningeal irritation. LOCOMOTOR SYSTEM: Unremarkable. SKIN: Unremarkable. CLINICAL IMPRESSION: Chronic obstructive pulmonary disease with acute exacerbation. PLAN: Start IV steroids as well as IV antibiotics and respiratory therapy. Continue with her regular medications. cc: Tab Marte MD
[2019-02-20 14:04] LABS: ALLEN TEST YES; BE 4.7 mmoll (-3.0-3.0); BLOOD TYPE ARTERIAL; HCO3-(ACT) 28.5 mmoll (20.0-26.0); METHB 1.3 % (0.0-1.5); O2(CT) 18.3 mL/dL (15.0-23.0); O2HB 92.9 % (95.0-99.0); PO2(98.6) 63 mmHg (60-100); SAMPLE BLOOD; SAO2 95.7 % (95.0-100.0); pH(98.6) 7.39 (7.35-7.45)
[2019-02-20 14:07] LABS: PCO2(98.6) 51 mmHg (35-45)
[2019-02-20 14:08] LABS: MODALITY CANNULA
[2019-02-20] MEDS: LEVAQUIN 500 MG/D5W 500 MG/100 ML IVPB IV SCH (14:51)
[2019-02-20] MEDS: SOLU-MEDROL IV SCH (14:52)
[2019-02-20] MEDS ORDERED: DUONEB (A & A) INH SCH (15:30)
[2019-02-20 16:08] LABS: URINE SOURCE CLEAN CATCH
[2019-02-20 16:13] LABS: BILIRUBIN URINE NEGATIVE (NEGATIVE); BLOOD URINE TRACE (NEGATIVE); COLOR YELLOW; GLUCOSE URINE >1000 mg/dL (NEGATIVE); KETONE URINE 20 mg/dL (NEGATIVE); LEUKOCYTES URINE NEGATIVE (NEGATIVE); NITRITE URINE NEGATIVE (NEGATIVE); PROTEIN URINE 300 mg/dL (NEGATIVE); SP GRAVITY URINE 1.019; TURBIDITY URINE CLEAR (CLEAR); UROBILINOGEN URINE NORMAL (NORMAL)
[2019-02-20 16:21] LABS: UR EPITHELIAL CELLS <10 /HPF (<10); URINE BACTERIA NEGATIVE /HPF; URINE WBC <10 /HPF (<10)
[2019-02-20 16:37] LABS: URINE YEAST PRESENT
[2019-02-20 16:38] LABS: URINE CASTS NONE SEEN; URINE CRYSTALS CA OXALATE PRESENT
[2019-02-20] MEDS: ULTRAM PO PRN (18:28)
[2019-02-20] MEDS: LIORESAL PO SCH (18:28)
[2019-02-20] MEDS ORDERED: SITAGLIPTIN PHOS PO SCH (21:00)
[2019-02-20] MEDS ORDERED: METFORMIN HCL PO SCH (21:00)
[2019-02-21] MEDS: SOLU-MEDROL IV SCH ×4 (01:15→18:22)
[2019-02-21] MEDS: ZANTAC PO SCH ×3 (01:16→22:57)
[2019-02-21] MEDS: GLUCOPHAGE PO SCH ×3 (01:16→22:57)
[2019-02-21] MEDS: JANUVIA PO SCH ×3 (01:17→22:58)
[2019-02-21] MEDS: ULTRAM PO PRN ×2 (01:17→17:24)
[2019-02-21] MEDS: NEURONTIN PO SCH ×3 (01:17→22:57)
[2019-02-21] MEDS: DUONEB (A & A) INH SCH ×5 (07:32→23:12)
[2019-02-21] MEDS: LEXAPRO PO SCH (10:24)
[2019-02-21] MEDS: LOTENSIN PO SCH (10:25)
[2019-02-21] MEDS: FEMARA PO SCH (10:25)
[2019-02-21] MEDS: CRESTOR PO SCH (10:25)
[2019-02-21] MEDS: LIORESAL PO SCH ×3 (10:26→17:23)
--- NOTE | 2019-02-21 12:49 | PROGRESS NOTE ---
DATE: 02/21/2019 Ms. Macias is significantly more alert today. Her arterial blood gases revealed a pH 7.39, pCO2 of 51, PO2 of 63. Vital signs are stable. Lungs still reveal some expiratory wheezing. We will try to cut down on the steroid therapy that she is on. -4 cc: Tab Marte MD
[2019-02-21] MEDS: LEVAQUIN 500 MG/D5W 500 MG/100 ML IVPB IV SCH (14:29)
[2019-02-22] MEDS: SOLU-MEDROL IV SCH ×3 (04:33→21:03)
[2019-02-22 06:17] LABS: HEMATOCRIT 38.8 % (37.0-47.0); HEMOGLOBIN 12.4 g/dL (12.0-16.0); IMM GRAN# 0.03 X1000 (0.0-0.04); IMM GRAN% 0.4 % (0.0-0.5); LYMPH# 1.14 X1000 (1.2-3.4); LYMPH% 16.2 % (20.5-51.1); MCH 26.4 PG (27-31); MCV 82.7 FL (81-99); MONO# 0.78 X1000 (0.11-0.59); MONO% 11.1 % (1.7-9.3); MPV 10.4 FL (7.4-10.4); NEUT# 5.07 X1000 (1.4-6.5); NEUT% 72.3 % (42.2-75.2); PLT 174 X1000 (130-400); RBC 4.69 XMIL (4.2-5.4); RDW 14.8 % (11.5-14.5); WBC 7.02 X1000 (4.8-10.8)
[2019-02-22 06:34] LABS: AGAP 10; ALB/GLOB RATIO 1.4; ALBUMIN 4.1 g/dL (3.5-5.0); ALKALINE PHOSPHATASE 58 U/L (32-104); BUN 21 mg/dL (8-22); CALCIUM 9.8 mg/dL (8.8-10.2); CHLORIDE 96 mmol/L (98-107); COSMO 281; CREATININE 0.5 mg/dL (0.5-0.9); ESTIMATED GFR > 60; GLUCOSE 199 mg/dL (70-104); GOT 14 U/L (10-30); GPT 9 U/L (10-36); MAGNESIUM 1.7 mg/dL (1.5-2.7); POTASSIUM 3.9 mmol/L (3.5-5.1); SODIUM 136 mmol/L (136-145); TCO2 30 mmol/L (25-35); TOTAL BILIRUBIN 0.37 mg/dL (0.20-1.00)
[2019-02-22] MEDS: DUONEB (A & A) INH SCH ×5 (07:51→23:10)
--- NOTE | 2019-02-22 08:31 | PROGRESS NOTE ---
DATE: 02/22/2019 SUBJECTIVE: Ms. Macias is an 79-year-old white female patient admitted with chest congestion, cough, expectoration, and increasing shortness of breath. The patient does have underlying COPD. The patient claims she was feeling like having pneumonia. She called ambulance and was brought to the emergency room. Evaluated by ER physician. Her chest x-ray did not reveal any pneumonia. It did show COPD. She denied any hemoptysis. Patient does have NIDDM, hypertension, and history of breast cancer. No dysuria or hematuria. No typical chest pain or palpitations. OBJECTIVE: Her vital signs noted.Neck: Supple. No JVD. Lungs: Bibasilar crepitations and occasional wheezing. CVS: S1 and S2 heard. Abdomen: Soft and scaphoid. Bowel sounds present. PUBLIC INFORMATION OFFICER: Alert, awake and answering questions fairly well. The patient does have spasticity in both the legs. LABORATORY DATA: Her lab data done today, WBC count 7.02, hemoglobin 12.4, hematocrit 38.8 and platelet count 174,000. Electrolytes result reviewed which were fairly benign. ASSESSMENT AND PLAN: I am going to start her on Mucomyst. Get sputum culture done. Continue rest of the treatment. Admission history and physical noted. Her problems include COPD exacerbation most likely due to bronchitis. She does have hypertension, history of breast cancer, and diabetes mellitus. Labs and medication noted. Overall plan discussed with the patient, and she is in agreement. cc: MD Tab Yang MD
[2019-02-22] MEDS: LEXAPRO PO SCH (09:14)
[2019-02-22] MEDS: JANUVIA PO SCH ×2 (09:15→21:01)
[2019-02-22] MEDS: ZANTAC PO SCH ×2 (09:15→21:01)
[2019-02-22] MEDS: LOTENSIN PO SCH (09:15)
[2019-02-22] MEDS: GLUCOPHAGE PO SCH ×2 (09:15→21:01)
[2019-02-22] MEDS: FEMARA PO SCH (09:15)
[2019-02-22] MEDS: LIORESAL PO SCH ×3 (09:15→16:33)
[2019-02-22] MEDS: CRESTOR PO SCH (09:15)
[2019-02-22] MEDS: NEURONTIN PO SCH ×2 (09:22→21:01)
[2019-02-22] MEDS: ROCEPHIN 1 GM in NS 50 ML IV SCH (09:23)
--- NOTE | 2019-02-22 10:45 | EKG Report ---
Test Performed on : 02/20/2019 08:40:21 AM Test Reason : sob Blood Pressure : / mmHG Vent. Rate : 097 BPM Atrial Rate : 097 BPM P-R Int : 120 ms QRS Dur : 084 ms QT Int : 390 ms P-R-T Axes : 077 068 014 degrees QTc Int : 495 ms Sinus rhythm. with premature atrial complexes. Biatrial enlargement Nonspecific ST and T wave abnormality Prolonged QT Abnormal ECG When compared with ECG of 10-FEB-2019 13:01, (Unconfirmed) Significant changes have occurred Unconfirmed Result
[2019-02-22] MEDS ORDERED: MAGNESIUM SULFATE 2 GM/S.W.I. 2 GM/50 ML IVPB IV ONE (12:04)
[2019-02-22] MEDS: HUMALOG SUBQ SCH ×3 (13:01→21:01)
[2019-02-22] MEDS: LEVAQUIN 500 MG/D5W 500 MG/100 ML IVPB IV SCH (13:02)
[2019-02-22] MEDS: ULTRAM PO PRN (13:53)
[2019-02-22] MEDS: MUCOMYST 20% INH SCH (19:10)
[2019-02-23] MEDS: SOLU-MEDROL IV SCH ×3 (04:54→20:37)
[2019-02-23] MEDS: HUMALOG SUBQ SCH ×4 (06:41→20:40)
--- NOTE | 2019-02-23 06:56 | PROGRESS NOTE ---
DATE: 02/23/2019 SUBJECTIVE: Ms. Macias is doing better. She was complaining of pain in the right thigh and the hip. No history of trauma. Chest congestion and cough improving. No high-grade fever or chills. Mild shortness of breath. Blood sugar is staying high. No dysuria or hematuria. She does have history of breast cancer. OBJECTIVE: Vital Signs: Noted. Neck: Supple. No JVD. Lungs: Bilateral good air entry present. Occasional wheezing. Cardiovascular: S1 and S2 heard. Abdomen: Soft, scaphoid. Bowel sounds present. Extremities: No cyanosis, clubbing. Patient does have spasticity in both the legs. Vague tenderness, right thigh. CONSIDERATION: 1. Chronic obstructive pulmonary disease exacerbation. The patient is on antibiotics, bronchodilator treatments, and steroids. 2. Right hip and right thigh pain. I am going to get x-ray done. 3. History of breast cancer. 4. Hypertension, on Lotensin. Blood pressure doing better. 5. Spasticity, both the legs. 6. Diabetes mellitus. Elevated blood sugar most likely due to steroid. The patient is on sliding scale insulin. PLAN: The patient does have multiple hospitalizations. Offered her short-term rehab. The patient is in agreement and I am going to get a social service consult for the same. Continue rest of the treatment and close observation. cc: MD Tab Yang MD
[2019-02-23] MEDS: ULTRAM PO PRN ×2 (07:19→14:27)
[2019-02-23] MEDS: PROTONIX PO SCH (07:20)
[2019-02-23] MEDS: LOVENOX SUBQ SCH (07:20)
--- NOTE | 2019-02-23 08:09 | Diag Imaging Result Doc PS360 ---
EXAM: XRAY HIP UNILATERAL RT HISTORY: hip pain TECHNIQUE: Right hip, two views COMPARISON: None. FINDINGS: There are fractures to the right superior and inferior pubic rami. No widening of the pubic symphysis. No fracture to the right proximal femur. IMPRESSION: Fractures to the right superior and inferior pubic rami. Electronically signed by Tyshawn Mosley 02/23/2019 8:07 AM
--- NOTE | 2019-02-23 08:14 | Diag Imaging Result Doc PS360 ---
EXAM: FEMUR MIN 2 VIEWS RIGHT HISTORY: rt. thigh pain TECHNIQUE: Right femur, two views COMPARISON: None. FINDINGS: No fracture. No dislocation. IMPRESSION: No acute bony injury. Electronically signed by Tyshawn Mosley 02/23/2019 8:12 AM
[2019-02-23] MEDS: DUONEB (A & A) INH SCH ×5 (08:55→23:21)
[2019-02-23] MEDS: MUCOMYST 20% INH SCH ×2 (08:55→20:00)
[2019-02-23] MEDS ORDERED: MORPHINE IV ONE (09:26)
[2019-02-23] MEDS: CRESTOR PO SCH (09:36)
[2019-02-23] MEDS: ROCEPHIN 1 GM in NS 50 ML IV SCH (09:36)
[2019-02-23] MEDS: ZANTAC PO SCH ×2 (09:37→20:36)
[2019-02-23] MEDS: NEURONTIN PO SCH ×2 (09:37→20:36)
[2019-02-23] MEDS: LIORESAL PO SCH ×3 (09:38→16:23)
[2019-02-23] MEDS: GLUCOPHAGE PO SCH ×2 (09:38→20:37)
[2019-02-23] MEDS: LOTENSIN PO SCH (09:38)
[2019-02-23] MEDS: JANUVIA PO SCH ×2 (09:39→20:36)
[2019-02-23] MEDS: LEXAPRO PO SCH (09:39)
[2019-02-23] MEDS: FEMARA PO SCH (09:39)
[2019-02-23] MEDS: LEVAQUIN 500 MG/D5W 500 MG/100 ML IVPB IV SCH ×2 (12:15→15:35)
--- NOTE | 2019-02-23 13:26 | ORTHOPAEDICS CONSULTATION ---
DATE: 02/23/2019 CHIEF COMPLAINT: Right hip pain. HISTORY OF PRESENT ILLNESS: Ms. Macias is an 79-year-old female who presented to the emergency department several days ago for shortness of breath which was likely an acute exacerbation of COPD, and she was admitted. During her stay, she had increased right hip pain, and x-rays per were performed of her right hip revealing right superior and inferior pubic rami fractures. The patient denies any recent fall. Apparently the patient was working with physical therapy this morning and there was a painful pop in her right hip. She has had increased pain since. We are asked for further evaluation and treatment regarding her right hip. For past medical history, past surgical history, allergies, and medications, see the admission history and physical. REVIEW OF SYSTEMS: Positive for right hip pain. All others negative. PHYSICAL EXAMINATION: General: This is an elderly female. She is alert, oriented, and cooperative with the examination. She is in no acute distress. Vital Signs: Temperature is 98.3 degrees, her pulse was 95, her blood pressure is 178/58, her oxygen saturation is 94% on 3 L of oxygen via nasal cannula. HEENT: Head is normocephalic, atraumatic. Neck: Supple. Respiratory: Her breathing is nonlabored. Abdomen: Nondistended. Neurologic: Sensation of her bilateral lower extremities is intact. Musculoskeletal: She has pain with movement of her right lower extremity. Her right lower extremity is internally rotated and shortened. Gross motor function is intact of her right lower extremity. IMAGING: X-rays of her right hip reveal inferior and superior pubic rami fractures that are nondisplaced. ASSESSMENT: Superior and inferior nondisplaced pubic rami fractures. PLAN: We are going to repeat x-rays of her right hip to rule out any fracture or dislocation due to her right leg shortening and internal rotation and increased pain. We will further evaluate depending on those results. Dictated by GERRI Syed for William Beckwith MD cc: GERRI Syed MD Amit V. Vora, MD [facility] DOWNSTATE MEDICAL CENTERGerard
--- NOTE | 2019-02-23 13:58 | Diag Imaging Result Doc PS360 ---
EXAM: XRAY PELVIS W/HIP 2-3VW RT HISTORY: increased right hip pain TECHNIQUE: Right hip two views COMPARISON: 7:54 AM FINDINGS: There is now a fracture to the right hip extending from the greater trochanter to the femoral neck. This was not present on the prior study. Femoral head remains in the acetabulum. The femoral shaft is rotated and superiorly placed. There are fractures to the superior and inferior pubic rami bilaterally. Age of these is indeterminate. IMPRESSION: Fracture to the right hip. Electronically signed by Tyshawn Mosley 02/23/2019 1:56 PM
[2019-02-23] MEDS: TYLENOL PO PRN (16:23)
[2019-02-23] MEDS ORDERED: KEFZOL 1 GM/D5W 1 GM/50 ML IVPB IV ONE (17:08)
[2019-02-23] MEDS: MORPHINE IV PRN (20:37)
--- NOTE | 2019-02-23 20:38 | PROGRESS NOTE ---
DATE: 02/23/2019 SUBJECTIVE: Christie Macias is an 79-year-old female who has a right basicervical femoral neck fracture. She complains of right hip pain. No other complaints. OBJECTIVE: General: She is a well-developed, well-nourished female. Exam: She is cooperative with exam. She has pain with any range of motion of her right hip. Her leg is otherwise neurovascularly intact. LABORATORY DATA: Her hematocrit is 38.8. Her hemoglobin is 12.4. Her PT/INR is normal. She. ASSESSMENT: Right basicervical femoral neck fracture. PLAN: I think we should proceed with a right trochanteric fixation nail placement. I have discussed with her the risks, benefits and alternatives of surgery, including but not limited to bleeding, nerve damage, infection, risk from anesthesia, hardware failure, malunion, nonunion, up to and including loss of limb, life and other imponderables. All questions were answered. No guarantees were given. She requested to proceed as planned. We will schedule surgery for tomorrow. I have also discussed with her the possibility that Dr. Deleon may do her surgery. She is agreeable to that. We have marked her leg today. cc: MD Tab Perales MD
[2019-02-24] MEDS: MORPHINE IV PRN ×3 (04:55→11:21)
[2019-02-24] MEDS: SOLU-MEDROL IV SCH ×3 (04:56→20:45)
--- NOTE | 2019-02-24 07:03 | PROGRESS NOTE ---
DATE: 02/24/2019 SUBJECTIVE: Ms. Macias had right thigh and hip pain yesterday. I did x-ray which did reveal possible pelvic fracture. The patient claimed while she came back from fracture she was still on the stretcher. She heard a big pop in her hip, and patient had severe pain in the right hip. She denied any trauma. No fall. Orthopedic surgeon evaluated the patient. We repeated x-ray which did reveal the fracture of the right hip. The patient had significant pain. We are managing her pain with morphine. The patient is doing better. No high-grade fever or chills. No history of a fall in the recent past. The patient is uses a wheelchair and bed-bound. She is not able to ambulate. She was able to stand up for a few minutes. The patient does have significant spasticity in both legs. She denied any chest pain or palpitations. No nausea or vomiting. No diarrhea. The patient did TWAR done in [place] over a year ago. She does have cough with scanty sputum production. History of breast cancer. According to daughter, she had a bone scan done and it was benign. She did receive 2 injections of Boniva for her osteoporosis. PAST MEDICAL HISTORY: As noted. MEDICATIONS: As noted. OBJECTIVE: Vital signs: Blood pressure 157/75, pulse 101, respirations 15, and temperature 98.5 degrees. Skin: Senile turgor. Neck: Supple. No JVD. Lungs: Bibasilar crepitation. Heart: S1 and S2 heard. 2/6 systolic murmur at the apex. Abdomen: Soft and scaphoid. Bowel sounds are present. Extremities: No cyanosis or clubbing. No acute DVT. Right leg rotated internally. Movement of right leg painful. DIAGNOSTIC: X-ray of the right hip revealed a fracture of the right hip. Femoral head remained in the acetabulum. Femoral shaft is rotated and superiorly placed. Fracture of the superior and inferior pubic rami bilaterally. ASSESSMENT: The patient's medical problems includes fracture hip most likely osteoporotic. Patient does have history of breast cancer. Pathologic fracture cannot be ruled out. Her other problems include COPD exacerbation, hypertension, history of aortic stenosis and surgery, osteoporosis, gastritis and reflux disease. PLAN: The patient was evaluated by orthopedic surgeon. She is scheduled to have surgery today. I had a lengthy discussion with patient and daughter. Discussed about importance of surgery most likely is pain management as patient is not able to ambulate or walk more than a few steps. Other consideration I had discussed with the patient's daughter is, she is high risk for surgery and anesthesia. Risk of anesthesia and surgery discussed at length with daughter. She understood and agreed. I am going to get appropriate labs. Plan is to discharge her to rehab. The patient does have history of breast cancer. cc: MD Tab Yang MD
--- NOTE | 2019-02-24 07:31 | EKG Report ---
Test Performed on : 02/24/2019 06:55:18 AM Test Reason : CP Blood Pressure : / mmHG Vent. Rate : 080 BPM Atrial Rate : 080 BPM P-R Int : 134 ms QRS Dur : 090 ms QT Int : 378 ms P-R-T Axes : 070 056 063 degrees QTc Int : 435 ms Normal sinus rhythm. Right atrial enlargement Nonspecific ST abnormality Abnormal ECG When compared with ECG of 20-FEB-2019 08:40, (Unconfirmed) premature atrial complexes. are no longer present Nonspecific T wave abnormality no longer evident in Inferior leads QT has shortened Confirmed by Cecil MONTE, Raymond Sharp ([id number]) on 02/24/2019 8:21:36 AM
[2019-02-24] MEDS: DUONEB (A & A) INH SCH ×5 (07:39→23:30)
[2019-02-24] MEDS: MUCOMYST 20% INH SCH ×2 (07:39→19:51)
[2019-02-24 08:04] LABS: HEMATOCRIT 35.5 % (37.0-47.0); HEMOGLOBIN 10.9 g/dL (12.0-16.0); IMM GRAN# 0.05 X1000 (0.0-0.04); IMM GRAN% 0.4 % (0.0-0.5); LYMPH# 0.58 X1000 (1.2-3.4); LYMPH% 4.6 % (20.5-51.1); MCH 26.3 PG (27-31); MCHC 30.7 g/dL (33-37); MCV 85.5 FL (81-99); MONO# 0.91 X1000 (0.11-0.59); MONO% 7.2 % (1.7-9.3); MPV 10.6 FL (7.4-10.4); NEUT# 11.16 X1000 (1.4-6.5); NEUT% 87.8 % (42.2-75.2); PLT 139 X1000 (130-400); RBC 4.15 XMIL (4.2-5.4); RDW 15.3 % (11.5-14.5)
[2019-02-24] MEDS: LOVENOX SUBQ SCH (08:06)
[2019-02-24] MEDS: HUMALOG SUBQ SCH ×4 (08:07→20:45)
[2019-02-24] MEDS: PROTONIX PO SCH (08:07)
[2019-02-24 08:16] LABS: AGAP 9; ALB/GLOB RATIO 1.5; ALBUMIN 3.7 g/dL (3.5-5.0); ALKALINE PHOSPHATASE 53 U/L (32-104); BUN 22 mg/dL (8-22); CALCIUM 8.9 mg/dL (8.8-10.2); CHLORIDE 97 mmol/L (98-107); COSMO 283; CREATININE 0.4 mg/dL (0.5-0.9); ESTIMATED GFR > 60; GLUCOSE 212 mg/dL (70-104); GOT 14 U/L (10-30); GPT 12 U/L (10-36); POTASSIUM 4.9 mmol/L (3.5-5.1); SODIUM 137 mmol/L (136-145); TCO2 31 mmol/L (25-35); TOTAL BILIRUBIN 0.31 mg/dL (0.20-1.00); TOTAL PROTEIN 6.2 g/dL (6.3-8.3)
[2019-02-24] MEDS: ROCEPHIN 1 GM in NS 50 ML IV SCH (08:49)
[2019-02-24] MEDS: LOTENSIN PO SCH (08:49)
[2019-02-24 09:06] LABS: BANDS 2 % (0-1); LYMPHS 4 % (21-51); MONO 4 % (1-9); SEGS 90 % (42-75)
[2019-02-24] MEDS: LEVAQUIN 500 MG/D5W 500 MG/100 ML IVPB IV SCH (14:07)
[2019-02-24] MEDS ORDERED: NEOSPORIN G.U. IRRIGANT ONE (14:21)
[2019-02-24] MEDS ORDERED: DIPRIVAN 1% ONE (14:47)
[2019-02-24] MEDS ORDERED: XYLOCAINE-MPF 2% ONE (14:47)
[2019-02-24] MEDS ORDERED: ROBINUL ONE (14:47)
[2019-02-24] MEDS ORDERED: DECADRON ONE (15:15)
[2019-02-24] MEDS ORDERED: OFIRMEV ONE (15:15)
[2019-02-24] MEDS ORDERED: [UNRECOGNIZED DRUG - OTHER] ONE (15:15)
[2019-02-24] MEDS ORDERED: KEFZOL 1 GM/D5W 1 GM/50 ML IVPB ONE (15:19)
--- NOTE | 2019-02-24 15:27 | ORTHOPAEDICS PROGRESS NOTE ---
DATE: 02/24/2019 SUBJECTIVE: The patient is an 79-year-old female who was admitted to the hospital a few days ago with shortness of breath with exacerbation of COPD. There is no reported fall. However, the patient was having some difficulty with physical therapy and had a painful pop in her right hip. She had increased pain and initial x-ray films revealed a right superior and inferior pubic rami fractures. While working with physical therapy the patient felt a painful pop in the right hip and had increased pain. Repeat x-ray was obtained and revealed a basicervical neck fracture. OBJECTIVE: General: Patient is awake, alert, and cooperative with the exam. Extremities: The patient's right lower extremity has tenderness to palpation on the hip, tenderness with gentle movement. Compartments are soft. IMPRESSION: Right basicervical neck fracture. PLAN: At this point, recommendation to proceed with intramedullary nailing of the right femur was offered today. Risks and benefits were discussed per Dr. Beckwith and all of the patient's and family's questions were answered today. They wished to proceed with surgical management. cc: MD Tab Freeman MD
[2019-02-24] MEDS ORDERED: NEO-SYNEPHRINE ONE (15:33)
[2019-02-24] MEDS ORDERED: MILK OF MAGNESIA PO PRN (16:29)
[2019-02-24] MEDS ORDERED: OXY IR PO PRN (16:29)
[2019-02-24] MEDS ORDERED: ZOFRAN IV PRN (16:29)
[2019-02-24] MEDS ORDERED: HALDOL IV PRN (16:30)
[2019-02-24] MEDS ORDERED: NS 1,000 ML ONE (16:54)
[2019-02-24] MEDS: ZANTAC PO SCH ×2 (17:46→20:44)
[2019-02-24] MEDS: CRESTOR PO SCH (17:46)
[2019-02-24] MEDS: JANUVIA PO SCH ×2 (17:47→20:45)
[2019-02-24] MEDS: NEURONTIN PO SCH ×2 (17:47→20:44)
[2019-02-24] MEDS: LIORESAL PO SCH ×2 (17:47→18:49)
[2019-02-24] MEDS: LEXAPRO PO SCH (17:47)
[2019-02-24] MEDS: FEMARA PO SCH (17:48)
[2019-02-24] MEDS: GLUCOPHAGE PO SCH ×2 (17:48→20:45)
[2019-02-24] MEDS: NS 1,000 ML IV SCH (17:49)
--- NOTE | 2019-02-24 18:09 | OPERATIVE NOTE ---
PROCEDURE DATE: 02/24/2019 PREOPERATIVE DIAGNOSIS: Right basicervical femoral neck fracture. POSTOPERATIVE DIAGNOSIS: Right basicervical femoral neck fracture. PROCEDURE: Intramedullary nailing with a Synthes 11 x 360 mm TFN nail. SURGEON: Nick Deleon MD. FLAME CHANNELER: HUMA Mehta. ANESTHESIA: Spinal. IV FLUIDS: 400 mL lactated Ringer's. ESTIMATED BLOOD LOSS: 50 mL. COMPLICATIONS: None. INDICATION: The patient is an 79-year-old female who was admitted a few days ago with an exacerbation of COPD. Patient has had some discomfort in her right hip and initial x-rays revealed a superior and inferior rami fracture. Upon working with physical therapy, she had some increasing right hip discomfort and felt a pop. Repeated x-rays were obtained and revealed basicervical neck fracture. Given patient's findings, recommendation to proceed with intramedullary nailing was offered. Risks and benefits of surgery were explained, including the risks of anesthesia, , bleeding, infection, failure to relieve pain, postoperative stiffness, nerve injury, blood clots, and other imponderables. All questions answered and the patient and family wish to proceed with surgery. DETAILS OF OPERATION: The patient was taken to the operating room and placed supine on operating table. Once adequate anesthesia was obtained, the patient was placed supine on operating table. Provisional reduction was then obtained. Right lower extremity was subsequently prepped and draped in sterile fashion. Approximately 3 fingerbreadths proximal to greater trochanter a lateral incision was made. Blunt dissection was performed to the gluteus rashaun to tip of the greater trochanter. A guide pin was then placed on tip of the greater trochanter and advanced into the intramedullary canal. After this had been performed, good position was confirmed by AP and lateral projections. A starting reamer was then passed. A ball-tip guide pin was then advanced and the length of the nail was determined to be 360 mm. Sequential reaming was conducted over the ball-tipped guide pin up to a size 12 mm in preparation for an 11 mm diameter nail. An 11 x 360 mm Synthes TFN nail was then advanced over the ball-tipped guide pin. The ball-tipped guide pin was then removed. Using the outrigger guide, a stab incision made along the proximal femur. The guide was then placed on the lateral cortex proximally. Guide was then placed across the fracture site, into the femoral neck and head. Good position was confirmed with AP and lateral projections. The lateral cortex was reamed. An 80 mm helical blade was then advanced and had good purchase. Proximal set screw was then tightened in standard fashion. Using perfect [place] technique, 1 distal locking screw was then placed from laterally to medially. Final C-arm visualization showed good alignment of the fracture and good position of the hardware. Wounds were copiously irrigated. Number 1 Vicryl was used to repair the deep fascia proximal wound, followed by 2-0 Vicryl in the 2 proximal wounds, and skin jeffery in all the wounds. Adaptic, sterile 4 x 4, ABD pad, and tape was applied to the right lower extremity. The patient tolerated the procedure well and was transferred to recovery room in stable condition. cc: MD Tab Freeman MD
[2019-02-24] MEDS: TYLENOL PO SCH ×2 (18:49→23:57)
[2019-02-24] MEDS: COLACE PO SCH (20:44)
[2019-02-24] MEDS: PERIDEX MT SCH (20:45)
[2019-02-24] MEDS: TYLENOL PO PRN (23:57)
[2019-02-25] MEDS: KEFZOL 1 GM/D5W 1 GM/50 ML IVPB IV SCH ×3 (00:06→15:03)
[2019-02-25] MEDS: NS 1,000 ML IV SCH ×3 (04:28→21:22)
[2019-02-25] MEDS: SOLU-MEDROL IV SCH ×3 (04:29→22:30)
[2019-02-25] MEDS: MORPHINE IV PRN ×2 (04:32)
[2019-02-25] MEDS: XARELTO PO SCH (06:14)
[2019-02-25] MEDS: PROTONIX PO SCH (06:15)
[2019-02-25 06:20] LABS: HEMOGLOBIN 7.9 g/dL (12.0-16.0)
[2019-02-25 06:42] LABS: AGAP 10; BUN 26 mg/dL (8-22); CALCIUM 8.3 mg/dL (8.8-10.2); CHLORIDE 98 mmol/L (98-107); COSMO 282; CREATININE 0.5 mg/dL (0.5-0.9); ESTIMATED GFR > 60; GLUCOSE 220 mg/dL (70-104); POTASSIUM 4.6 mmol/L (3.5-5.1); SODIUM 135 mmol/L (136-145); TCO2 27 mmol/L (25-35)
--- NOTE | 2019-02-25 07:17 | PROGRESS NOTE ---
DATE: 02/25/2019 SUBJECTIVE: Ms. Macias had surgery for a right hip fracture yesterday. Tolerated the procedure well. This morning, patient's oxygen saturation was low, requiring higher concentration of oxygen. No typical chest pain. Pain in the right hip is better. No nausea or vomiting. No typical chest pain. Denied any diarrhea. No high-grade fever or chills. PHYSICAL EXAMINATION: Vital Signs: Noted. Neck: Supple. No JVD. Lungs: Bibasilar crepitations. Heart: S1 and S2 heard. Abdomen: Soft, globular. Bowel sounds present. TRANSPORT AIDE: Alert, awake. Able to move all 4 limbs. Movement of right leg is limited. The patient does have spasticity in both lower limbs. LABORATORY DATA: Blood work done today revealed hemoglobin 7.9, hematocrit 26. BMP results revealed BUN of 26, creatinine 0.5. PROBLEM LIST: 1. Right hip fracture. 2. Blood loss anemia. 3. Chronic obstructive pulmonary disease exacerbation. 4. Hypertension. 5. Diabetes mellitus. PLAN: Patient has compromised cardiopulmonary status. I think she will be benefitted from blood transfusion. The patient was hypoxemic, requiring higher concentration of oxygen. I am going to get blood gas. Continue the rest of the treatment. Close observation. Continue bronchodilator treatment. Overall plan discussed with the patient and she is in agreement. cc: MD Tab Yang MD
[2019-02-25] MEDS: DUONEB (A & A) INH SCH ×5 (07:30→23:30)
[2019-02-25] MEDS: MUCOMYST 20% INH SCH ×2 (07:30→19:35)
[2019-02-25] MEDS: HUMALOG SUBQ SCH ×4 (07:43→22:31)
--- NOTE | 2019-02-25 07:43 | Diag Imaging Result Doc PS360 ---
EXAM: CHEST-PORTABLE HISTORY: sob TECHNIQUE: Portable chest single view COMPARISON: 02/20/2019 FINDINGS: The lungs are hyperexpanded. The heart is not enlarged. The vessels are small. There are no infiltrates. No effusion identified. IMPRESSION: Emphysema. No pneumonia. Electronically signed by Tyshawn Mosley 02/25/2019 7:41 AM
[2019-02-25 07:48] LABS: ALLEN TEST NO; BE 6.6 mmoll (-3.0-3.0); BLOOD TYPE ARTERIAL; HCO3-(ACT) 30.1 mmoll (20.0-26.0); O2(CT) 10.4 mL/dL (15.0-23.0); O2HB 94.9 % (95.0-99.0); PO2(98.6) 68 mmHg (60-100); SAMPLE BLOOD; SAO2 97.2 % (95.0-100.0); THB 7.7 g/dL (11.5-17.4)
[2019-02-25 07:49] LABS: PCO2(98.6) 52 mmHg (35-45)
[2019-02-25 07:50] LABS: MODALITY CANNULA
[2019-02-25] MEDS: ROCEPHIN 1 GM in NS 50 ML IV SCH (08:31)
[2019-02-25] MEDS: FERROUS SULFATE PO SCH (08:36)
[2019-02-25] MEDS: JANUVIA PO SCH ×2 (08:36→22:31)
[2019-02-25] MEDS: GLUCOPHAGE PO SCH ×2 (08:37→22:30)
[2019-02-25] MEDS: LIORESAL PO SCH ×3 (08:37→16:46)
[2019-02-25] MEDS: NEURONTIN PO SCH ×2 (08:37→22:30)
[2019-02-25] MEDS: ZANTAC PO SCH ×2 (08:38→22:31)
[2019-02-25] MEDS: PERIDEX MT SCH ×2 (08:38→22:35)
[2019-02-25] MEDS: FEMARA PO SCH (08:38)
[2019-02-25] MEDS: LEXAPRO PO SCH (08:38)
[2019-02-25] MEDS: TYLENOL PO SCH ×2 (08:38→16:46)
[2019-02-25] MEDS: LOTENSIN PO SCH (08:57)
--- NOTE | 2019-02-25 09:18 | ORTHOPAEDICS PROGRESS NOTE ---
DATE: 02/25/2019 SUBJECTIVE: 79-year-old female who is 1 day status post intramedullary nailing of the right femur. She is resting comfortably this morning. PHYSICAL EXAMINATION: The patient's right lower extremity dressing is intact. Calf is soft. Patient has chronic contracture to her ankle. She has good capillary refill distally. LABORATORY DATA: Her labs are pending. IMPRESSION: Postoperative day #1 status post intramedullary nailing of the right femur. PLAN: At this point, will begin mobilization with out of [id number]. Patient reports she has been nonambulatory for the last 2 years. We will consult social insurance administrator for discharge planning. cc: MD Tab Fereman MD
[2019-02-25] MEDS: LEVAQUIN 500 MG/D5W 500 MG/100 ML IVPB IV SCH ×2 (12:31→13:20)
[2019-02-25] MEDS: CRESTOR PO SCH (22:30)
[2019-02-25] MEDS: COLACE PO SCH (22:35)
[2019-02-26] MEDS: TYLENOL PO SCH ×3 (00:55→16:30)
[2019-02-26] MEDS: SOLU-MEDROL IV SCH (04:41)
[2019-02-26] MEDS: NS 1,000 ML IV SCH (04:41)
[2019-02-26] MEDS: XARELTO PO SCH (06:04)
[2019-02-26] MEDS: PROTONIX PO SCH (06:04)
[2019-02-26 06:38] LABS: HEMATOCRIT 26.4 % (37.0-47.0); HEMOGLOBIN 8.5 g/dL (12.0-16.0); IMM GRAN# 0.08 X1000 (0.0-0.04); IMM GRAN% 0.5 % (0.0-0.5); LYMPH# 0.85 X1000 (1.2-3.4); LYMPH% 4.9 % (20.5-51.1); MCH 27.1 PG (27-31); MCHC 32.2 g/dL (33-37); MCV 84.1 FL (81-99); MONO# 0.84 X1000 (0.11-0.59); MONO% 4.8 % (1.7-9.3); NEUT# 15.67 X1000 (1.4-6.5); NEUT% 89.8 % (42.2-75.2); PLT 98 X1000 (130-400); RBC 3.14 XMIL (4.2-5.4); WBC 17.44 X1000 (4.8-10.8)
[2019-02-26] MEDS: HUMALOG SUBQ SCH ×4 (06:41→21:32)
[2019-02-26 07:07] LABS: AGAP 7; ALB/GLOB RATIO 1.5; ALBUMIN 2.9 g/dL (3.5-5.0); ALKALINE PHOSPHATASE 37 U/L (32-104); BUN 16 mg/dL (8-22); CALCIUM 8.1 mg/dL (8.8-10.2); CHLORIDE 99 mmol/L (98-107); COSMO 277; CREATININE 0.4 mg/dL (0.5-0.9); ESTIMATED GFR > 60; GLUCOSE 174 mg/dL (70-104); GOT 12 U/L (10-30); GPT 8 U/L (10-36); MAGNESIUM 1.7 mg/dL (1.5-2.7); POTASSIUM 4.8 mmol/L (3.5-5.1); SODIUM 136 mmol/L (136-145); TCO2 30 mmol/L (25-35); TOTAL PROTEIN 4.9 g/dL (6.3-8.3)
--- NOTE | 2019-02-26 08:24 | PROGRESS NOTE ---
DATE: 02/26/2019 SUBJECTIVE: The patient is doing fair. No high-grade fever or chills. Denied any nausea or vomiting. Oral intake is fair. The patient tolerated right hip surgery well. No typical chest pain. OBJECTIVE: Vital signs: Noted Neck: Supple. No JVD. Lungs: Bibasilar crepitations. Heart: S1 and S2 heard. Abdomen: Soft, globular. Bowel sounds present. Extremities: Patient does have spasticity both lower limbs. Central nervous system: Alert, awake, answering questions fairly well. LABORATORY DATA: Done today did reveal leukocytosis. Hemoglobin 8.5. The patient received 1 unit of packed RBC. Blood gas done yesterday noted electrolytes were fairly benign. ASSESSMENT: Patient's problems includes fracture of the right hip status post surgery, chronic obstructive pulmonary disease exacerbation, urinary tract infection, osteoporosis, gastritis, diabetes mellitus, hypertension. Labs and medication noted. PLAN: We will continue current treatment. Close observation. Plan is to discharge patient to rehab tomorrow if clinical condition permits. cc: MD Tab Yang MD
[2019-02-26] MEDS: DUONEB (A & A) INH SCH ×5 (08:27→23:35)
[2019-02-26] MEDS: MUCOMYST 20% INH SCH ×2 (08:27→20:20)
--- NOTE | 2019-02-26 08:42 | ORTHOPAEDICS PROGRESS NOTE ---
DATE: 02/26/2019 SUBJECTIVE: The patient is a pleasant 79-year-old female, who is 2 days status post left intramedullary nailing, left femur. She is currently resting comfortably. The patient's hemoglobin is 8.5, hematocrit is 26.4. IMPRESSION: Postoperative day #2 status post intramedullary nailing, left femur. PLAN: At this point, will begin [id number] mobilization. [facility] have been consulted for discharge planning for inpatient rehabilitation. cc: MD Tab Freeman MD
[2019-02-26] MEDS ORDERED: NS 500 ML ONE (09:27)
[2019-02-26] MEDS: PERIDEX MT SCH ×2 (09:38→21:32)
[2019-02-26] MEDS: ROCEPHIN 1 GM in NS 50 ML IV SCH (09:38)
[2019-02-26] MEDS: LEXAPRO PO SCH (09:39)
[2019-02-26] MEDS: GLUCOPHAGE PO SCH ×2 (09:39→21:31)
[2019-02-26] MEDS: ZANTAC PO SCH ×2 (09:39→21:32)
[2019-02-26] MEDS: LIORESAL PO SCH ×3 (09:39→16:30)
[2019-02-26] MEDS: NEURONTIN PO SCH ×2 (09:39→21:32)
[2019-02-26] MEDS: CRESTOR PO SCH (09:39)
[2019-02-26] MEDS: JANUVIA PO SCH ×2 (09:39→21:31)
[2019-02-26] MEDS: FERROUS SULFATE PO SCH (09:39)
[2019-02-26] MEDS: CARAFATE PO SCH ×3 (09:44→16:30)
[2019-02-26] MEDS: PREDNISONE PO SCH (10:17)
[2019-02-26] MEDS: FEMARA PO SCH (10:17)
[2019-02-26] MEDS: NORCO-7.5 PO PRN ×3 (10:19→16:32)
[2019-02-26] MEDS: LOTENSIN PO SCH (10:20)
[2019-02-26] MEDS: LEVAQUIN 500 MG/D5W 500 MG/100 ML IVPB IV SCH ×2 (12:21→13:30)
[2019-02-26] MEDS: COLACE PO SCH (21:31)
[2019-02-27] MEDS: TYLENOL PO SCH ×2 (03:01→08:14)
[2019-02-27] MEDS: PROTONIX PO SCH (06:09)
[2019-02-27] MEDS: XARELTO PO SCH (06:10)
[2019-02-27] MEDS: HUMALOG SUBQ SCH ×2 (06:10→11:23)
[2019-02-27 06:16] LABS: BASO# 0.01 X1000 (0.0-0.2); BASO% 0.1 % (0.0-0.8); EOS# 0.01 X1000 (0.0-0.7); EOS% 0.1 % (0.0-10.0); HEMATOCRIT 31.5 % (37.0-47.0); HEMOGLOBIN 10.2 g/dL (12.0-16.0); IMM GRAN# 0.11 X1000 (0.0-0.04); IMM GRAN% 0.7 % (0.0-0.5); LYMPH# 1.15 X1000 (1.2-3.4); LYMPH% 6.9 % (20.5-51.1); MCH 28.6 PG (27-31); MCHC 32.4 g/dL (33-37); MCV 88.2 FL (81-99); MONO% 6.6 % (1.7-9.3); MPV 11.2 FL (7.4-10.4); NEUT# 14.25 X1000 (1.4-6.5); NEUT% 85.6 % (42.2-75.2); PLT 102 X1000 (130-400); RBC 3.57 XMIL (4.2-5.4); RDW 17.3 % (11.5-14.5); WBC 16.63 X1000 (4.8-10.8)
[2019-02-27 06:36] LABS: AGAP 6; ALB/GLOB RATIO 1.3; ALBUMIN 2.8 g/dL (3.5-5.0); ALKALINE PHOSPHATASE 41 U/L (32-104); BUN 14 mg/dL (8-22); CALCIUM 7.8 mg/dL (8.8-10.2); CHLORIDE 100 mmol/L (98-107); COSMO 275; CREATININE 0.4 mg/dL (0.5-0.9); ESTIMATED GFR > 60; GLUCOSE 149 mg/dL (70-104); GOT 12 U/L (10-30); GPT 7 U/L (10-36); POTASSIUM 4.6 mmol/L (3.5-5.1); SODIUM 136 mmol/L (136-145); TCO2 30 mmol/L (25-35); TOTAL BILIRUBIN 0.37 mg/dL (0.20-1.00); TOTAL PROTEIN 4.9 g/dL (6.3-8.3)
--- NOTE | 2019-02-27 07:59 | ORTHOPAEDICS PROGRESS NOTE ---
DATE: 02/27/2019 SUBJECTIVE: Ms. Macias lying in bed this morning. Overall pain is controlled. OBJECTIVE: Right lower extremity exam: Her dressing is clean, dry, and intact. She is able to dorsiflex and plantar flex the foot very well. She has good sensation to light touch to the toes, not a lot of swelling to the lower extremity ASSESSMENT: Status post right trochanteric femoral nailing. PLAN: Ms. Macias will be weight bear as tolerated, right lower extremity. She can get up and out of bed. She will mobilize with physical therapy today, and Orthopedics will continue to follow. cc: MD Tab Byrd MD
[2019-02-27] MEDS: MUCOMYST 20% INH SCH (08:09)
[2019-02-27] MEDS: DUONEB (A & A) INH SCH ×2 (08:09→11:58)
[2019-02-27] MEDS: PREDNISONE PO SCH (08:13)
[2019-02-27] MEDS: PERIDEX MT SCH (08:15)
[2019-02-27] MEDS: GLUCOPHAGE PO SCH (08:15)
[2019-02-27] MEDS: NEURONTIN PO SCH (08:15)
[2019-02-27] MEDS: CARAFATE PO SCH ×2 (08:15→13:42)
[2019-02-27] MEDS: LEXAPRO PO SCH (08:15)
[2019-02-27] MEDS: CRESTOR PO SCH (08:16)
[2019-02-27] MEDS: LOTENSIN PO SCH (08:16)
[2019-02-27] MEDS: FERROUS SULFATE PO SCH (08:16)
[2019-02-27] MEDS: JANUVIA PO SCH (08:16)
[2019-02-27] MEDS: ZANTAC PO SCH (08:16)
[2019-02-27] MEDS: LIORESAL PO SCH ×2 (08:16→13:42)
[2019-02-27 08:18] LABS: BANDS 2 % (0-1); HYPOCHROM 1+; LYMPHS 6 % (21-51); MONO 2 % (1-9); SEGS 88 % (42-75)
[2019-02-27] MEDS: ROCEPHIN 1 GM in NS 50 ML IV SCH (08:20)
[2019-02-27] MEDS ORDERED: VANCOMYCIN IV PER PHARMACY MISC SCH (08:45)
[2019-02-27] MEDS ORDERED: ZYVOX PO SCH (09:00)
[2019-02-27] MEDS: NORCO-7.5 PO PRN (10:40)
[2019-02-27] MEDS: FEMARA PO SCH (10:45)
[2019-02-27] MEDS ORDERED: VANCOMYCIN 1 GM/NS 1 GM/250 ML IVPB IV SCH (11:00)
--- NOTE | 2019-02-27 11:26 | DISCHARGE SUMMARY ---
ADMISSION DATE: 02/20/2019 DISCHARGE DATE: 02/27/2019 FINAL DISCHARGE DIAGNOSES: 1. Acute exacerbation of chronic obstructive pulmonary disease. 2. Fracture right hip and pelvis. 3. Hypertension. 4. Breast cancer. 5. Osteoporosis. 6. Gastritis and reflux disease. 7. Hyperlipidemia. 8. Aortic stenosis. 9. History of anemia secondary to blood loss. 10. 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 11. Osteoarthritis. 12. Situational depression. HISTORY OF PRESENT ILLNESS: Ms. Macias is an 79-year-old, female patient admitted with chest congestion, cough, increasing shortness of breath, not responding to her outpatient treatment. The patient was brought to the emergency room, evaluated by ER physician. Admitted for further care. HOSPITAL COURSE: Patient was doing fair. She was complaining of pain in the right thigh and the hip area. I ordered x-ray which did reveal possible fracture in the inferior and superior pubic rami on the right side. While she came back from the x-ray, she heard a large pop in the right hip. We did another x-ray and it did reveal right hip fracture which was spontaneous. No history of trauma. Patient does have chronic immobilization due to her spasticity in the leg. Orthopedic consult obtained. Dr. Deleon did surgery on the right hip. The patient had blood loss anemia. She received 2 units of packed RBC. The patient had recurrent exacerbation of her COPD. I did sputum for Gram stain, which grew Staphylococcus which was resistant to multiple antibiotics, only sensitive to vancomycin, gentamicin and rifampin. I am going to start the patient on Zyvox, discontinue rest of the medication. Overall, patient is doing better. No high- grade fever, chills, nausea, vomiting. The patient is going to rehab where we are going to monitor her closely physical therapy. PHYSICAL EXAMINATION: Vital signs: Noted. Patient remains afebrile. Neck: Supple. No JVD. Lungs: Bibasilar crepitation. Heart: S1 and S2 heard. Abdomen: Soft, globular. Bowel sounds present. Extremities: No cyanosis, clubbing. No acute DVT. Central nervous system: Alert, awake. Answering questions fair. LABORATORY DATA: WBC count 16.63, hemoglobin 10.2, hematocrit 31.5, platelet count 102,000. Patient was on Lovenox which was discontinue as patient is on Xarelto. Clinically patient does not have any apparent source of infection. Patient is on steroid, which can cause leukocytosis. Electrolytes: BUN 14, creatinine 0.4, sodium 136, potassium 4.6. Overall, the patient received maximum benefit of hospitalization. DISCHARGE DISPOSITION: She will go to rehab, continue Zyvox for 10 days. Supportive care. Monitor Accu-Chek. Continue rest of the treatment. Pain management. Overall discharge condition satisfactory. Continue oxygen and nebulizer treatment. Overall plan discussed with the patient and she is in agreement. cc: MD Tab Yang MD MTDD
[2019-02-27 12:40] VITALS: BP 146/56
== END 2019-02-27 14:32 | DRG 982 ==
LOC: SUPCPDRO → ED 08:11 → 4N 09:41
PROVIDERS: ADMIT Internal Medicine; ATTEND Internal Medicine
CPT/HCPCS: 36430; 71010; 71020; 71045; 71046; 73502; 73552; 76000; 80048; 80053; 81001; 82550; 82805; 82948; 83735; 83880; 84484; 85014; 85018; 85025; 85610; 85730; 86850; 86900; 86901; 86920; 87070; 87077; 87186; 87205; 93005; 93010; 94640; 94760; 94761; 94799; 96374; 97110; 97162; 97530; 99285; A9270; J0131; J0690; J0696; J1100; J1650; J1815; J1956; J2270; J2370; J2920; J2930; J3370; J3475; J7030; J7040; J7506; J7512; P9016; XXXXX

== ENCOUNTER 2019-06-06 18:38 | Inpatient (IN) ==
[2019-06-06] MEDS ORDERED: SOLU-MEDROL IV ONE (18:49)
[2019-06-06] MEDS ORDERED: DUONEB (A & A) INH ONE (18:49)
[2019-06-06 19:01] LABS: BASO# 0.06 X1000 (0.0-0.2); BASO% 0.5 % (0.0-0.8); EOS# 1.15 X1000 (0.0-0.7); EOS% 10.5 % (0.0-10.0); HEMATOCRIT 43.1 % (37.0-47.0); HEMOGLOBIN 13.6 g/dL (12.0-16.0); IMM GRAN# 0.03 X1000 (0.0-0.04); IMM GRAN% 0.3 % (0.0-0.5); LYMPH# 1.44 X1000 (1.2-3.4); LYMPH% 13.2 % (20.5-51.1); MCH 27.1 PG (27-31); MCHC 31.6 g/dL (33-37); MONO# 0.82 X1000 (0.11-0.59); MONO% 7.5 % (1.7-9.3); MPV 10.6 FL (7.4-10.4); NEUT# 7.42 X1000 (1.4-6.5); PLT 286 X1000 (130-400); RBC 5.01 XMIL (4.2-5.4); RDW 13.5 % (11.5-14.5); WBC 10.92 X1000 (4.8-10.8)
--- NOTE | 2019-06-06 19:12 | PROVIDER DOCUMENTATION ---
HPI-Respiratory General - General Chief Complaint: Shortness of Breath Stated Complaint: SOB Time Seen by Provider: 06/06/19 18:42 Source: patient, family Allergies/Adverse Reactions: Patient Allergies Allergy/AdvReac Type Severity Reaction Status Date / Time naproxen [From Aleve] Allergy Severe comatose Verified 04/07/19 09:31 Home Medications: Home Medication List Medication Instructions Recorded Confirmed Last Taken Type Escitalopram Oxalate [Lexapro] 10 mg PO DAILY 04/06/19 06/06/19 04/06/19 09:00 History Gabapentin [Neurontin] 300 mg PO BID 04/06/19 06/06/19 04/06/19 17:00 History Letrozole 2.5 tab PO DAILY 04/06/19 06/06/19 04/06/19 09:00 History ROSUVAstatin [Crestor] 10 mg PO QHS 04/06/19 06/06/19 04/06/19 21:00 History BENAZEpril [Lotensin] 5 mg PO DAILY tab 04/09/19 06/06/19 Unknown Rx Baclofen [Lioresal] 10 mg PO BID 06/06/19 06/06/19 Unknown History Sitagliptin Phos/Metformin HCl 1 tab PO BID 06/06/19 06/06/19 Unknown History [Janumet 50-1,000 mg Tablet] Sucralfate [Carafate] 1 gm PO 4XDAY 06/06/19 06/06/19 Unknown History - History of Present Illness-Resp Nature of Presenting Problem: Patient is an 79 yowf who presents via EMS due to SOB and productive cough since yesterday. Hx of COPD, on 2L O2 via nasal cannula at home. States she also has had chills. Denies chest pain or any other symptoms. Review of Systems - Adult - REVIEW OF SYSTEMS - ADULT Constitutional: reports: see HPI, chills Eyes: reports: no symptoms reported Ears, Nose, Mouth & Throat: reports: no symptoms reported Cardiovascular: reports: no symptoms reported Respiratory: reports: see HPI, cough, shortness of breath Gastrointestinal: reports: no symptoms reported. denies: diarrhea, nausea, vomiting Genitourinary: reports: no symptoms reported Musculoskeletal: reports: no symptoms reported Integumentary: reports: no symptoms reported Neurological: reports: no symptoms reported Psychiatric: reports: no symptoms reported Endocrine: reports: no symptoms reported Hematologic/Lymphatic: reports: no symptoms reported Allergic/Immunologic: reports: no symptoms reported All Other Systems: Reviewed and Negative Past History - Adult - PAST MEDICAL HISTORY-ADULT Review of Records: reports: Old Records Reviewed, Nursing Assessment Review, Medications Reviewed, Social history reviewed & non-contributory. Major Childhood Illnesses: reports: denies history Cardiovascular: reports: HTN Respiratory: reports: COPD Gastrointestinal: reports: GERD Obstetrical/Gynecological: reports: denies history Genitourinary: reports: denies history Musculoskeletal: reports: denies history Neurological: reports: denies history Psychiatric: reports: denies history Endocrine/Immune: reports: Diabetes Other Conditions: reports: denies history - PRIOR SURGERIES/PROCEDURES Surgical/Procedure History: reports: breast, other (pelvis fx) - IMMUNIZATION STATUS Childhood Immunizations: See Nurse Assessment Flu Vaccine: See Nurse Assessment - FAMILY HISTORY Family History: reviewed, not pertinent - SOCIAL HISTORY Smoking: non-smoker Physical Exam-General - PHYSICAL EXAM-ADULT Initial Vital Signs Reviewed: Yes - CONSTITUTIONAL General Appearance: alert, moderate distress. negative: lethargic, slow to respond - EYES Eyes: PERRL/EOMI, pink conjunctivae - HEAD, EARS, NOSE, MOUTH & THROAT HENMT: normocephalic/atraumatic, moist mucous membranes - NECK Neck: full range of motion, supple, normal inspection - RESPIRATORY Respiratory: chest non-tender, no pleuratic chest pain, respiratory distress, accessory muscle use, rhonchi (inspiratory and expiratory- auscultated in all lung lux). negative: stridor - CARDIOVASCULAR Cardiovascular: regular rate, rhythm, no gallop, no murmur - GASTROINTESTINAL (ABDOMEN) Abdominal Exam: normal bowel sounds, non tender, soft - MUSCULOSKELETAL Extremity: normal range of motion, normal inspection - SKIN Integumentary: normal color, diaphoresis. negative: cyanosis, jaundice, mottled - NEUROLOGIC Neurologic: grossly normal, no motor/sensory deficits - PSYCHIATRIC Psych/Mental Status: normal thought content, normal thought process, oriented x 3, anxious - HEART Score HEART Score: History: Slightly Suspicious HEART Score: ECG: Normal HEART Score: Age: > or = 65 Years HEART Score: Risk Factors for Atherosclerotic Disease: > or = 3 Risk Factors or History of Atherosclerotic Disease HEART Score: Troponin: < or = Normal Limit Total HEART Score:: 4 Progress - PLAN OF CARE/RESULTS Progress/Plan/Lab Results: Vital Signs - 8 hr 06/06/19 18:59 06/06/19 19:21 06/06/19 19:22 Temperature 98.3 F Pulse Rate 89 Respiratory Rate 20 Blood Pressure 203/116 O2 Sat by Pulse Oximetry 80 L 80 L 96 06/06/19 19:41 06/06/19 20:04 Temperature Pulse Rate 89 Respiratory Rate 16 Blood Pressure 160/103 O2 Sat by Pulse Oximetry 96 Laboratory Results - last 24 hr 06/06/19 06/06/19 06/06/19 18:53 18:53 18:53 WBC 10.92 H RBC 5.01 Hgb 13.6 Hct 43.1 MCV 86.0 MCH 27.1 MCHC 31.6 L RDW Std Deviation 13.5 Plt Count 286 MPV 10.6 H Immature Gran % (Auto) 0.3 Neut % (Auto) 68.0 Lymph % (Auto) 13.2 L [place] % (Auto) 7.5 Eos % (Auto) 10.5 H Baso % (Auto) 0.5 Immature Gran # (Auto) 0.03 Neut # (Auto) 7.42 H Lymph # (Auto) 1.44 [place] # (Auto) 0.82 H Eos # (Auto) 1.15 H Baso # (Auto) 0.06 PT INR PTT (Actin FS) Specimen Type Sample Site pH pCO2 pO2 HCO3 Base Excess Oxyhemoglobin ABG O2 Sat (Calculated) ABG O2 Saturation ABG Carboxyhemoglobin ABG Methemoglobin Buzz Test A-a O2 Difference Total Hemoglobin Lactate Liter Flow Blood Gas Modality FiO2 % Sodium 141 Potassium 4.4 Chloride 99 Carbon Dioxide 28 Anion Gap 14 BUN 14 Creatinine 0.3 L Estimated GFR/1.73 m2 > 60 BUN/Creatinine Ratio 47 Glucose 185 H Calculated Osmolality 287 Calcium 9.7 Magnesium 1.7 Total Bilirubin 0.23 AST 16 ALT 7 L Alkaline Phosphatase 88 Troponin T < 0.010 Tmz-D-Gzatmuunlyg Pept Total Protein 7.0 Albumin 4.6 Globulin 2.4 Albumin/Globulin Ratio 1.9 Plasma Lactate 06/06/19 06/06/19 06/06/19 18:53 19:08 19:42 WBC RBC Hgb Hct MCV MCH MCHC RDW Std Deviation Plt Count MPV Immature Gran % (Auto) Neut % (Auto) Lymph % (Auto) [place] % (Auto) Eos % (Auto) Baso % (Auto) Immature Gran # (Auto) Neut # (Auto) Lymph # (Auto) [place] # (Auto) Eos # (Auto) Baso # (Auto) PT 13.5 INR 1.02 PTT (Actin FS) 28.8 Specimen Type ARTERIAL Sample Site L RADIAL pH 7.37 pCO2 58 H* pO2 76 HCO3 29.8 H Base Excess 6.4 H Oxyhemoglobin 94.5 L ABG O2 Sat (Calculated) 18.4 ABG O2 Saturation 97.2 ABG Carboxyhemoglobin 1.70 ABG Methemoglobin 1.1 Buzz Test YES A-a O2 Difference 51.0 Total Hemoglobin 13.8 Lactate 1.20 Liter Flow 2.0 Blood Gas Modality [place]ULA FiO2 % 28.0 Sodium Potassium Chloride Carbon Dioxide Anion Gap BUN Creatinine Estimated GFR/1.73 m2 BUN/Creatinine Ratio Glucose Calculated Osmolality Calcium Magnesium Total Bilirubin AST ALT Alkaline Phosphatase Troponin T Jok-W-Zzbtkcbmxzn Pept 431 Total Protein Albumin Globulin Albumin/Globulin Ratio Plasma Lactate 06/06/19 19:42 WBC RBC Hgb Hct MCV MCH MCHC RDW Std Deviation Plt Count MPV Immature Gran % (Auto) Neut % (Auto) Lymph % (Auto) [place] % (Auto) Eos % (Auto) Baso % (Auto) Immature Gran # (Auto) Neut # (Auto) Lymph # (Auto) [place] # (Auto) Eos # (Auto) Baso # (Auto) PT INR PTT (Actin FS) Specimen Type Sample Site pH pCO2 pO2 HCO3 Base Excess Oxyhemoglobin ABG O2 Sat (Calculated) ABG O2 Saturation ABG Carboxyhemoglobin ABG Methemoglobin Buzz Test A-a O2 Difference Total Hemoglobin Lactate Liter Flow Blood Gas Modality FiO2 % Sodium Potassium Chloride Carbon Dioxide Anion Gap BUN Creatinine Estimated GFR/1.73 m2 BUN/Creatinine Ratio Glucose Calculated Osmolality Calcium Magnesium Total Bilirubin AST ALT Alkaline Phosphatase Troponin T Chx-Q-Ipxsidgieiv Pept Total Protein Albumin Globulin Albumin/Globulin Ratio Plasma Lactate 1.2 Orders Category Date Time Status Admit - [facility] Routine AdmDCTranf 06/06/19 19:50 Active Cardiac Monitoring DIRECTED Care 06/06/19 18:49 Active IV Insertion ORDERED Care 06/06/19 18:50 Completed Notify MD of + Sepsis Screen NOW Care 06/06/19 18:50 Active Notify Physician As Ordered Care 06/06/19 18:50 Active Nursing- Obtain EKG ONCE Care 06/06/19 18:49 Active O2 [Oxygen Saturation] ORDERED Care 06/06/19 18:50 Active Oxygen Saturation ORDERED Care 06/06/19 19:54 Active Resuscitation Status Routine Care 06/06/19 19:52 Ordered Saline Loc NOW Care 06/06/19 18:49 Active Z-Document. for Tele Applied ORDERED Care 06/06/19 19:52 Active CHEST-1 VIEW [RAD] Stat Exams 06/06/19 18:50 Completed ABG [RESP] Routine Lab 06/06/19 19:08 Completed BLOOD CULTURE [BLDCUL] Stat Lab 06/06/19 19:35 Results CBC WITH DIFF [HEME] Stat Lab 06/06/19 18:53 Completed COMPREHENSIVE METABOLIC PANEL [CHEM] Stat Lab 06/06/19 18:53 Completed LACTATE, PLASMA [CHEM] Lab 06/06/19 19:42 Completed LACTATE, PLASMA [CHEM] Lab 06/06/19 22:00 Uncollected LACTATE, PLASMA [CHEM] Lab 06/07/19 01:00 Uncollected MAGNESIUM [CHEM] Stat Lab 06/06/19 18:53 Completed PRO B-NATRIURETIC PEPTIDE Stat Lab 06/06/19 18:53 Completed PROTIME WITH INR [COAG] Stat Lab 06/06/19 19:42 Completed PTT [COAG] Stat Lab 06/06/19 19:42 Completed TROPONIN T Stat Lab 06/06/19 18:53 Completed Albuterol 2.5MG/Ipratrop 0.5MG [Duoneb (A & A)] Med 06/06/19 18:49 Discontinued 3 ml INH NOW ONE Albuterol 2.5MG/Ipratrop 0.5MG [Duoneb (A & A)] Med 06/06/19 23:30 Active 3 ml INH RTQ4H.WA BENAZEpril [Lotensin] Med 06/07/19 09:00 Active 5 mg PO DAILY Baclofen [Lioresal] Med 06/07/19 07:00 Active 10 mg PO BID CefTRIAXONE [Rocephin] 1 gm Med 06/06/19 19:19 Discontinued 0.9% Sodium Chloride Inj [Ns] 50 ml IV NOW CefTRIAXONE [Rocephin] 1 gm Med 06/07/19 20:00 Active 0.9% Sodium Chloride Inj [Ns] 50 ml IV Q24H Escitalopram [Lexapro] Med 06/07/19 09:00 Active 10 mg PO DAILY Hydralazine [Apresoline] Med 06/06/19 19:55 Discontinued 5 mg IV NOW ONE Levofloxacin 750 mg/D5w [Levaquin 750 mg/D5w] Med 06/06/19 21:00 Active 750 mg in 150 ml IV Q24H Methylprednisolone Sod Succ [Solu-Medrol] Med 06/06/19 18:49 Discontinued 125 mg IV NOW ONE Methylprednisolone Sod Succ [Solu-Medrol] Med 06/07/19 04:00 Active 40 mg IV Q8H ROSUVAstatin [Crestor] Med 06/06/19 21:00 Active 10 mg PO QHS Sucralfate [Carafate] Med 06/07/19 07:00 Active 1 gm PO Q6H Aerosol Treatments Routine Oth 06/06/19 18:49 Completed Aerosol Treatments Routine Oth 06/06/19 19:53 Active Aerosol Treatments Stat Oth 06/06/19 18:49 Completed Aerosol Treatments Stat Oth 06/06/19 19:53 Active O2 Per Protocol Stat Oth 06/06/19 19:52 Active Oxygen Device Stat Oth 06/06/19 19:53 Active Telemetry [OM.EQ] Routine Oth 06/06/19 19:52 Active EKG [EKG] Stat Ther 06/06/19 18:49 Ordered Transfer/Admit Order [TRANSFER] Routine Transfer 06/06/19 19:49 Ordered Result Diagrams: 06/06/19 18:53 06/06/19 18:53 - REASSESSMENT Reassessment #1 Time Reassessed: 19:45 Status: improving (Respiratory status improved since breathing tx, pt states she is feeling better, O2 sat 94% on 2L O2 via nasal cannula.) Reassessment #2 Time Reassessed: 20:29 Status: other (Dr. Gonsalves at bedside.) - EKG 1 Time of EKG reading by physician:: 20:13 EKG Read and Signed by:: Zack Perez EKG Interpretation (*Must complete 3 of following elements*): Abnormal Rate: 84 Rhythm: NSR- biatrial enlargement QRS: normal ST Wave: normal - XRAY 1 XRAY Study: Chest ([facility] - [address], [address], [place] [address] [facility] - [address] [facility] [place] [address] Department of Imaging Patient: NOHEMI NEAL Date: 06/06/19#: [id number] : 1940ADM Status: PRE ERAcct#: [id number] Age/Sex: 79/FRoom/Bed: Loc: ED Ordering Physician: Abhijit Kahn Family Physician: Mike Gonsalves MD Reason for Procedure: SOB, hypoxia, hx COPD ___ Signed CHEST-1 VIEW - 06/06/2019 INDICATION: SOB, hypoxia, hx COPD COMPARISON: 02/25/2019 FINDINGS: Stable cardiac valve replacement. The lungs are clear. Heart size is normal. No pneumothorax or pleural effusion. IMPRESSION: Negative exam. Electronically signed by Brenden Nance 06/06/2019 7:11 PM 06/06/191910 Interpreting Physician: Brenden Nance MD Dictated Date/Time: 06/06/191909 cc: Abhijit Kahn; Mike Gonsalves MD) - CONSULTS/PCP/HOSPITALIST Notification #1 *Consult/PCP/Hospitalist*: Dr. Gonsalves Time Discussed: 19:50 Reason/Comments: admission- SOB, hypoxia Consult Disposition: Admit (Requests that orders for Solu-Medrol 40 mg IV Q8h, Levaquin, Rocephin, DuoNebs, O2, and continue home meds be entered.) Departure - Departure Date of Disposition Decision: 06/06/19 Time of Disposition Decision: 19:50 DIAGNOSIS: SOB (shortness of breath), Hypoxia, Cough COPD (chronic obstructive pulmonary disease) Qualifiers: COPD type: unspecified COPD Qualified Code(s): J44.9 - Chronic obstructive pulmonary disease, unspecified Disposition: ADMITTED INPATIENT 09 Certified Medical Emergency: Emergent Condition: Serious - Critical Care Note This patient required my direct & personal management of CC.: No Attestation - Physician/ KORY Attestation Patient care was provided by Advanced Practice Provider:: Yes Advanced Practice Provider:: Abhijit Kahn Advanced Practice Provider documentation review:: The Mid-level provider documentation, treatment plan and medical decision making was reviewed by the physician who agrees with all treatment and medical decision making by the MLP. The physician spent face to face time with patient:: No Advanced Practice Provider documentation review:: Supervising physician onsite and consulted in the evaluation and care of this patient. The physician did not have a face to face encounter with the patient.
[2019-06-06 19:18] LABS: ALLEN TEST YES; BE 6.4 mmoll (-3.0-3.0); BLOOD TYPE ARTERIAL; HCO3-(ACT) 29.8 mmoll (20.0-26.0); METHB 1.1 % (0.0-1.5); O2(CT) 18.4 mL/dL (15.0-23.0); O2HB 94.5 % (95.0-99.0); PO2(98.6) 76 mmHg (60-100); SAMPLE BLOOD; SAO2 97.2 % (95.0-100.0); THB 13.8 g/dL (11.5-17.4); pH(98.6) 7.37 (7.35-7.45)
[2019-06-06] MEDS ORDERED: ROCEPHIN 1 GM in NS 50 ML IV ONE (19:19)
[2019-06-06 19:35] LABS: AGAP 14; ALB/GLOB RATIO 1.9; ALBUMIN 4.6 g/dL (3.5-5.0); ALKALINE PHOSPHATASE 88 U/L (32-104); BUN 14 mg/dL (8-22); CALCIUM 9.7 mg/dL (8.8-10.2); CHLORIDE 99 mmol/L (98-107); COSMO 287; CREATININE 0.3 mg/dL (0.5-0.9); ESTIMATED GFR > 60; GLUCOSE 185 mg/dL (70-104); GOT 16 U/L (10-30); GPT 7 U/L (10-36); MAGNESIUM 1.7 mg/dL (1.5-2.7); POTASSIUM 4.4 mmol/L (3.5-5.1); SODIUM 141 mmol/L (136-145); TCO2 28 mmol/L (25-35); TOTAL BILIRUBIN 0.23 mg/dL (0.20-1.00)
[2019-06-06 19:37] LABS: PCO2(98.6) 58 mmHg (35-45)
[2019-06-06 19:39] LABS: MODALITY CANNULA
[2019-06-06] MEDS ORDERED: APRESOLINE IV ONE (19:55)
[2019-06-06 19:57] LABS: INR 1.02; PROTIME 13.5 Seconds (11.0-16.0); PTT 28.8 Seconds (22.3-41.8)
[2019-06-06] MEDS ORDERED: CRESTOR PO SCH (21:00)
[2019-06-06] MEDS ORDERED: LEVAQUIN 750 MG/D5W 750 MG/150 ML IVPB IV SCH (21:00)
[2019-06-06] MEDS ORDERED: POTASSIUM CHLORIDE 10 MEQ in NS 1,000 ML IV SCH (21:15)
--- NOTE | 2019-06-06 21:58 | HISTORY AND PHYSICAL ---
CHIEF COMPLAINT: Shortness of breath. Cough and chest congestion. HISTORY OF PRESENT ILLNESS: Ms. Macias is an 79-year-old, white female patient, known case of COPD, bronchiectasis not doing well since yesterday, complaining of chest congestion, cough with expectoration, low-grade fever, minimally increased shortness of breath. The patient was using her oxygen bronchodilator treatment without significant relief. The patient had difficulty breathing. She called the EMS. When EMS arrived, the patient was very diaphoretic, short of breath. O2 saturation was low. The patient was brought to the emergency room, evaluated by ER physician. Patient found to be in respiratory failure. As she was not responding to outpatient treatment, we decided to admit the patient for further care. The patient does have underlying chronic respiratory failure, COPD and bronchiectasis. The patient denied any hemoptysis. She did have fever. The patient is usually bed bound. No typical chest pain. Her oral intake is variable. Unquantified weight loss. No dysphagia or odynophagia. Denied abdominal pain, nausea, vomiting. No diarrhea. Vague abdominal pain. At times, constipation. Denied any dysuria or hematuria. The patient does have spasticity in both the legs for which patient is on baclofen. She was seen by the neurologist. No heat or cold intolerance. No major depression. The patient does have chronic pain in the lower back and at times in the hip joint. PAST MEDICAL HISTORY: Significant for COPD, bronchiectasis, history of breast cancer, diabetes mellitus, hyperlipidemia, hypertension. The patient had osteoporosis, situational depression and spasticity in both the legs. PERSONAL HISTORY: Single. Recently discharged from [facility]. The patient lives at home with the son, needs assistance in activities of daily living. The patient is usually bed bound. Nonsmoker. The patient does dip FAMILY HISTORY: Noncontributory. REVIEW OF SYSTEMS: As per HPI. Unquantified weight loss. The patient had right hip replacement done due to spontaneous fracture. CURRENT MEDICATION: The patient is on benazepril, Lexapro, baclofen, Janumet, Crestor, DuoNeb, Carafate, Prilosec, Neurontin, Femara for breast cancer. PHYSICAL EXAMINATION: GENERAL: Elderly white female patient in mild distress. VITAL SIGNS: When she arrived her blood pressure was 203/116, pulse 89, respirations 20, temperature 98.3 degrees. SKIN: Senile turgor. No rash or petechiae. HEENT: Head is atraumatic, normocephalic. [place] conjunctivae. Anicteric sclerae. Extraocular muscle movement normal. Fundus cannot be penetrated. Good oral hygiene. No tonsillopharyngeal congestion or exudate. Ears and nose benign. NECK: Supple. No JVD, thyromegaly or lymphadenopathy. CHEST: Bibasilar crepitation. Occasional wheezing. CARDIOVASCULAR: S1 and S2 heard. ABDOMEN: Soft, scaphoid. Bowel sounds present. EXTREMITIES: No cyanosis, clubbing. No acute DVT. No acute vascular compromise. IT PROJECT COORDINATOR: Alert, awake. Answering questions fairly well. Able to move both upper limbs. The patient had stiffness in the both lower limbs. ADMISSION LABORATORY DATA: Revealed WBC count 10.92, hemoglobin 13.6, hematocrit 43.1, platelet count 286,000. PT/INR 1.02, PTT 28.8. Blood gas pH 7.37, pCO2 of 58, PO2 was 76. This was done on 2 L via nasal cannula. Electrolytes were fairly benign. Cardiac isoenzymes were negative. Chest x-ray results reviewed. CONSIDERATION: 1. Chronic obstructive pulmonary disease exacerbation most likely due to bronchitis. The patient does have chronic respiratory failure. 2. Bronchiectasis. 3. Non-insulin dependent diabetes mellitus. 4. Spasticity both the legs. 5. Gastritis and reflux disease. 6. Hyperlipidemia. 7. Hypertension. 8. Osteoporosis. PLAN: Overall plan discussed with patient and daughter. They are in agreement. Her blood gas data reviewed. cc: Mike Gonsalves MD MTDD
--- NOTE | 2019-06-06 22:42 | EKG Report ---
Test Performed on : 06/06/2019 8:11:15 PM Test Reason : SOB Blood Pressure : / mmHG Vent. Rate : 084 BPM Atrial Rate : 084 BPM P-R Int : 134 ms QRS Dur : 092 ms QT Int : 408 ms P-R-T Axes : 080 059 068 degrees QTc Int : 482 ms Normal sinus rhythm. Biatrial enlargement Septal infarct , age undetermined Abnormal ECG When compared with ECG of 06-JUN-2019 20:10, (Unconfirmed) premature ventricular complexes. are no longer present Unconfirmed Result
[2019-06-06] MEDS: DUONEB (A & A) INH SCH (23:31)
[2019-06-06] MEDS: LIORESAL PO SCH (23:54)
[2019-06-07] MEDS: CARAFATE PO SCH ×4 (06:12→20:10)
[2019-06-07] MEDS: SOLU-MEDROL IV SCH ×3 (06:12→21:24)
[2019-06-07] MEDS: PROTONIX PO SCH (06:12)
[2019-06-07] MEDS ORDERED: CARAFATE PO SCH (07:00)
[2019-06-07] MEDS ORDERED: LIORESAL PO SCH (07:00)
[2019-06-07 07:31] LABS: HEMATOCRIT 40.2 % (37.0-47.0); HEMOGLOBIN 12.8 g/dL (12.0-16.0); LYMPH# 0.89 X1000 (1.2-3.4); LYMPH% 27.3 % (20.5-51.1); MCH 27.1 PG (27-31); MCHC 31.8 g/dL (33-37); MCV 85.2 FL (81-99); MONO# 0.09 X1000 (0.11-0.59); MONO% 2.8 % (1.7-9.3); MPV 10.7 FL (7.4-10.4); NEUT# 2.28 X1000 (1.4-6.5); NEUT% 69.9 % (42.2-75.2); PLT 278 X1000 (130-400); RBC 4.72 XMIL (4.2-5.4); RDW 13.3 % (11.5-14.5); WBC 3.26 X1000 (4.8-10.8)
--- NOTE | 2019-06-07 07:32 | PROGRESS NOTE ---
DATE: 06/07/2019 SUBJECTIVE: Ms. Macias is feeling some better. Patient is still having cough with scanty sputum production. Her shortness of breath is somewhat better. No nausea or vomiting. Lactate was negative. There is some pain in the hip. No dysuria or hematuria. No typical chest pain. Patient admitted with COPD exacerbation and chronic respiratory failure. OBJECTIVE: Her vital signs as noted.Neck: Supple. No JVD. Lungs: Bibasilar crepitations and occasional wheezing. CVS: S1 and S2 heard. Abdomen: Soft, globular. Bowel sounds present. Extremities: No cyanosis or clubbing. No acute DVT. CONSIDERATION: Patient does have spasticity over both lower limbs. CONSIDERATION: 1. COPD exacerbation most likely due to bronchitis. 2. Spasticity both legs. 3. Osteoporosis. 4. Hypertension. 5. Diabetes mellitus. PLAN: 1. We will check Accu-Chek. 2. Continue rest of the treatment. 3. I am going to check a vitamin D level. 4. Continue calcium with vitamin D. 5. Continue rest of the treatment and close observation. 6. Fall precautions. 7. Overall plan discussed with the patient, and she is in agreement. cc: Mike Gonsalves MD
[2019-06-07] MEDS: DUONEB (A & A) INH SCH ×6 (08:03→23:56)
[2019-06-07 08:04] LABS: CHOLESTEROL 139 mg/dL (0-200); HDL 79 mg/dL (45-65); LDL 49 mg/dL; TRIGLYCERIDES 53 mg/dL (35-135); VLDL 11 mg/dL
[2019-06-07 08:07] LABS: HEMOGLOBIN A1C 6.2 % (4.8-6.0)
[2019-06-07 08:09] LABS: AGAP 13; ALB/GLOB RATIO 1.5; ALBUMIN 4.3 g/dL (3.5-5.0); ALKALINE PHOSPHATASE 83 U/L (32-104); BUN 14 mg/dL (8-22); CALCIUM 9.6 mg/dL (8.8-10.2); CHLORIDE 96 mmol/L (98-107); COSMO 278; CREATININE 0.2 mg/dL (0.5-0.9); ESTIMATED GFR > 60; GLUCOSE 167 mg/dL (70-104); GOT 15 U/L (10-30); GPT 7 U/L (10-36); MAGNESIUM 1.6 mg/dL (1.5-2.7); POTASSIUM 3.8 mmol/L (3.5-5.1); SODIUM 137 mmol/L (136-145); TCO2 28 mmol/L (25-35); TOTAL BILIRUBIN 0.19 mg/dL (0.20-1.00); TOTAL PROTEIN 7.2 g/dL (6.3-8.3)
[2019-06-07] MEDS ORDERED: LEXAPRO PO SCH (09:00)
[2019-06-07] MEDS ORDERED: GLUCOPHAGE PO SCH (09:00)
[2019-06-07] MEDS ORDERED: LOTENSIN PO SCH (09:00)
[2019-06-07] MEDS ORDERED: JANUVIA PO SCH (09:00)
[2019-06-07] MEDS: LEXAPRO PO SCH (10:27)
[2019-06-07] MEDS: LOTENSIN PO SCH (10:27)
[2019-06-07] MEDS: NEURONTIN PO SCH ×2 (10:27→20:10)
[2019-06-07] MEDS: GLUCOPHAGE PO SCH (10:27)
[2019-06-07] MEDS: FEMARA PO SCH (10:27)
[2019-06-07] MEDS: JANUVIA PO SCH ×2 (10:27→20:10)
[2019-06-07] MEDS: LIORESAL PO SCH ×2 (10:27→20:10)
[2019-06-07] MEDS: CALTRATE 600 + D PO SCH ×2 (15:16→20:10)
[2019-06-07] MEDS ORDERED: ZOFRAN IV PRN (15:37)
[2019-06-07] MEDS: DIFLUCAN PO SCH (16:57)
[2019-06-07 18:37] LABS: URINE SOURCE CATH
[2019-06-07 18:48] LABS: BILIRUBIN URINE NEGATIVE (NEGATIVE); BLOOD URINE NEGATIVE (NEGATIVE); COLOR YELLOW; GLUCOSE URINE NEGATIVE (NEGATIVE); KETONE URINE NEGATIVE (NEGATIVE); LEUKOCYTES URINE TRACE (NEGATIVE); NITRITE URINE NEGATIVE (NEGATIVE); PH URINE 6.5; PROTEIN URINE NEGATIVE (NEGATIVE); TURBIDITY URINE CLEAR (CLEAR); UROBILINOGEN URINE NORMAL (NORMAL)
[2019-06-07 18:50] LABS: UR EPITHELIAL CELLS <10 /HPF (<10); URINE BACTERIA NEGATIVE /HPF; URINE RBC <10 /HPF (<10); URINE WBC <10 /HPF (<10)
[2019-06-07] MEDS: MUCOMYST 20% INH SCH ×2 (19:35→22:06)
[2019-06-07] MEDS: ROCEPHIN 1 GM in NS 50 ML IV SCH (19:50)
[2019-06-07] MEDS: CRESTOR PO SCH (20:10)
[2019-06-07] MEDS: DOXYCYCLINE PO SCH (21:49)
[2019-06-07] MEDS ORDERED: LEVAQUIN 500 MG/D5W 500 MG/100 ML IVPB IV SCH (23:00)
[2019-06-08] MEDS: CATAPRES PO PRN ×2 (01:02→06:11)
[2019-06-08] MEDS: PROTONIX PO SCH (06:11)
[2019-06-08] MEDS: CARAFATE PO SCH ×4 (06:11→21:07)
[2019-06-08] MEDS: SOLU-MEDROL IV SCH ×3 (06:11→22:08)
[2019-06-08] MEDS ORDERED: LASIX IV ONE (06:35)
--- NOTE | 2019-06-08 06:56 | PROGRESS NOTE ---
DATE: 06/08/2019 SUBJECTIVE: Ms. Macias is doing fair. The patient does have a cough with scanty sputum production. No high-grade fever or chills. Her blood pressure and blood sugar were staying high. I am going to give her some Lasix. Started her on Norvasc. Patient is on small dose of Lotensin. Vague chest pain. The patient had significant vaginal yeast infection. I am going to give her Diflucan. No diarrhea, blood or mucus in the stool. No runny nose, stuffy nose. The patient was admitted with COPD exacerbation, known case of diabetes and hypertension. Oral intake is fair. Her vital signs noted. Blood pressure is staying high. OBJECTIVE: Neck: Supple. No JVD. Lungs: Bibasilar crepitations. Heart: S1 and S2 heard. Abdomen: Soft, scaphoid. Bowel sounds present. Disuse atrophy of lower limbs. No acute DVT. FITNESS WORKER: Alert, awake. Answering questions fairly well. The patient does have spasticity of both the lower limbs. CONSIDERATIONS: 1. Chronic obstructive pulmonary disease exacerbation, most likely due to bronchitis. The patient is on intravenous antibiotics, steroids, and bronchodilator treatment. I added Mucomyst yesterday. 2. Vaginal yeast infection, on Diflucan. 3. Diabetes mellitus. Hemoglobin A1c was 6.2. 4. Hyperlipidemia. Lipid panel results reviewed. 5. Spasticity of both the legs. 6. Hypertension. 7. Vitamin D deficiency. I am going to add vitamin D. PLAN: Overall plan discussed with the patient and she is in agreement. cc: Mike Gonsalves MD
[2019-06-08] MEDS: LOVENOX SUBQ SCH (07:36)
[2019-06-08] MEDS: MUCOMYST 20% INH SCH (08:16)
[2019-06-08] MEDS: DUONEB (A & A) INH SCH ×4 (08:16→22:41)
[2019-06-08] MEDS: FEMARA PO SCH (09:20)
[2019-06-08] MEDS: LEXAPRO PO SCH (09:20)
[2019-06-08] MEDS: NEURONTIN PO SCH ×2 (09:20→20:32)
[2019-06-08] MEDS: JANUVIA PO SCH ×2 (09:20→20:33)
[2019-06-08] MEDS: GLUCOPHAGE PO SCH (09:20)
[2019-06-08] MEDS: LOTENSIN PO SCH (09:20)
[2019-06-08] MEDS: NORVASC PO SCH (09:20)
[2019-06-08] MEDS: LIORESAL PO SCH ×2 (09:20→20:33)
[2019-06-08] MEDS: VITAMIN D PO SCH (09:21)
[2019-06-08] MEDS: DOXYCYCLINE PO SCH ×2 (09:21→20:32)
[2019-06-08] MEDS: CALTRATE 600 + D PO SCH ×2 (09:21→20:33)
[2019-06-08] MEDS: ROCEPHIN 1 GM in NS 50 ML IV SCH (20:31)
[2019-06-08] MEDS: CRESTOR PO SCH (20:33)
[2019-06-09] MEDS: HUMULIN R SUBQ SCH ×5 (00:08→22:12)
[2019-06-09] MEDS: CARAFATE PO SCH ×4 (06:34→20:14)
[2019-06-09] MEDS: LOVENOX SUBQ SCH (06:34)
[2019-06-09] MEDS: PROTONIX PO SCH (06:34)
[2019-06-09] MEDS ORDERED: MILK OF MAGNESIA PO ONE (06:36)
[2019-06-09] MEDS: SOLU-MEDROL IV SCH (06:36)
[2019-06-09] MEDS ORDERED: TYLENOL PO PRN (06:37)
--- NOTE | 2019-06-09 06:59 | PROGRESS NOTE ---
DATE: 06/09/2019 SUBJECTIVE: Ms. Macias is doing fair. Oral intake is improving. Mucomyst seems to be helping her cough and congestion. No high-grade fever or chills. Nausea and vomiting improving. No typical chest pain or palpitations. Her blood sugar was staying high. Could be due to steroid. OBJECTIVE: Vital Signs: As noted. Neck: Supple. No JVD. Lungs: Bibasilar crepitations. Heart: S1 and S2 heard. Abdomen: Soft and scaphoid. Bowel sounds present. CUSTOMER CONTACT SALES ASSOCIATE: Alert and awake. Answering questions fair. The patient does have spasticity of both lower limbs. CONSIDERATION: Exacerbation of COPD most likely due to bronchitis. Vitamin D deficiency. Concerned about constipation. Uncontrolled diabetes mellitus. Hypertension doing better. Spasticity in the lower limb. Constipation. Labs and medication noted. I am going to get physical therapy evaluation. Change Solu-Medrol to p.o. prednisone. Continue the rest of the treatment and close observation. Overall plan discussed with the patient, and she is in agreement. cc: Mike Gonsalves MD
[2019-06-09] MEDS: MUCOMYST 20% INH SCH ×2 (08:00→19:29)
[2019-06-09] MEDS: DUONEB (A & A) INH SCH ×5 (08:00→23:16)
[2019-06-09] MEDS: JANUVIA PO SCH ×2 (08:30→20:14)
[2019-06-09] MEDS: VITAMIN D PO SCH (08:30)
[2019-06-09] MEDS: DOXYCYCLINE PO SCH ×2 (08:30→20:14)
[2019-06-09] MEDS: NEURONTIN PO SCH ×2 (08:30→20:14)
[2019-06-09] MEDS: LEXAPRO PO SCH (08:30)
[2019-06-09] MEDS: DIFLUCAN PO SCH (08:31)
[2019-06-09] MEDS: CALTRATE 600 + D PO SCH ×2 (08:31→20:14)
[2019-06-09] MEDS: FEMARA PO SCH (08:31)
[2019-06-09] MEDS: NORVASC PO SCH (08:31)
[2019-06-09] MEDS: GLUCOPHAGE PO SCH (08:31)
[2019-06-09] MEDS: LIORESAL PO SCH ×2 (08:31→20:14)
[2019-06-09] MEDS: LOTENSIN PO SCH (08:31)
[2019-06-09] MEDS ORDERED: PREDNISONE PO ONE (10:30)
[2019-06-09] MEDS: ROCEPHIN 1 GM in NS 50 ML IV SCH (20:00)
[2019-06-09] MEDS: CRESTOR PO SCH (20:14)
[2019-06-10] MEDS: LOVENOX SUBQ SCH (05:59)
[2019-06-10] MEDS: CARAFATE PO SCH ×4 (06:00→20:15)
[2019-06-10] MEDS: PROTONIX PO SCH (06:00)
[2019-06-10] MEDS: HUMULIN R SUBQ SCH ×4 (06:02→20:44)
[2019-06-10] MEDS ORDERED: MILK OF MAGNESIA PO ONE (07:18)
[2019-06-10] MEDS ORDERED: DULCOLAX PR ONE (07:18)
--- NOTE | 2019-06-10 07:36 | PROGRESS NOTE ---
DATE: 06/10/2019 SUBJECTIVELY: Ms. Macias is doing better. Chest congestion and cough improving. No nausea, vomiting. Oral intake is fair. The patient is still has problem with constipation. No diarrhea. OBJECTIVE: Vital signs: Reviewed. Neck: Supple. No JVD. Lungs: Bilateral good air entry present. Occasional wheezing. Cardiovascular: S1 and S2 heard. Abdomen: Soft, scaphoid. Bowel sounds present. Central nervous system: Alert, awake answering questions fairly well. Patient does have spasticity to both legs. Telemetry did reveal short run of ventricular tachycardia yesterday, the patient was asymptomatic. PLAN: I am going to check appropriate lab today. Continue current treatment. Close observation. Overall, patient is doing fairly well. I am going to treat her constipation, tapering dose of prednisone. If clinical condition permits, we will plan discharging patient home soon. cc: Mike Gonsalves MD
[2019-06-10] MEDS: DUONEB (A & A) INH SCH ×5 (07:58→23:12)
[2019-06-10] MEDS: MUCOMYST 20% INH SCH ×2 (07:59→20:00)
[2019-06-10 08:20] LABS: BASO# 0.02 X1000 (0.0-0.2); BASO% 0.2 % (0.0-0.8); EOS# 0.05 X1000 (0.0-0.7); EOS% 0.6 % (0.0-10.0); HEMATOCRIT 40.1 % (37.0-47.0); HEMOGLOBIN 12.5 g/dL (12.0-16.0); IMM GRAN# 0.03 X1000 (0.0-0.04); IMM GRAN% 0.4 % (0.0-0.5); LYMPH# 3.01 X1000 (1.2-3.4); LYMPH% 35.2 % (20.5-51.1); MCH 27.1 PG (27-31); MCHC 31.2 g/dL (33-37); MONO# 1.07 X1000 (0.11-0.59); MONO% 12.5 % (1.7-9.3); MPV 10.3 FL (7.4-10.4); NEUT# 4.37 X1000 (1.4-6.5); NEUT% 51.1 % (42.2-75.2); PLT 238 X1000 (130-400); RBC 4.61 XMIL (4.2-5.4); RDW 13.5 % (11.5-14.5); WBC 8.55 X1000 (4.8-10.8)
[2019-06-10 08:35] LABS: AGAP 11; ALBUMIN 4.1 g/dL (3.5-5.0); ALKALINE PHOSPHATASE 75 U/L (32-104); BUN 14 mg/dL (8-22); CALCIUM 8.2 mg/dL (8.8-10.2); CHLORIDE 96 mmol/L (98-107); COSMO 280; CREATININE 0.3 mg/dL (0.5-0.9); ESTIMATED GFR > 60; GLUCOSE 143 mg/dL (70-104); GOT 13 U/L (10-30); GPT 6 U/L (10-36); MAGNESIUM 1.8 mg/dL (1.5-2.7); POTASSIUM 4.4 mmol/L (3.5-5.1); SODIUM 139 mmol/L (136-145); TCO2 32 mmol/L (25-35); TOTAL BILIRUBIN 0.21 mg/dL (0.20-1.00); TOTAL PROTEIN 6.2 g/dL (6.3-8.3)
[2019-06-10] MEDS: GLUCOPHAGE PO SCH (08:40)
[2019-06-10] MEDS: CALTRATE 600 + D PO SCH ×2 (08:41→20:15)
[2019-06-10] MEDS: DOXYCYCLINE PO SCH ×2 (08:41→20:15)
[2019-06-10] MEDS: JANUVIA PO SCH ×2 (08:42→20:15)
[2019-06-10] MEDS: FEMARA PO SCH (08:42)
[2019-06-10] MEDS: LIORESAL PO SCH ×2 (08:42→20:15)
[2019-06-10] MEDS: LEXAPRO PO SCH (08:42)
[2019-06-10] MEDS: LOTENSIN PO SCH (08:43)
[2019-06-10] MEDS: NEURONTIN PO SCH ×2 (08:43→20:15)
[2019-06-10] MEDS: VITAMIN D PO SCH (08:44)
[2019-06-10] MEDS: NORVASC PO SCH (08:44)
[2019-06-10] MEDS ORDERED: PREDNISONE PO SCH (09:00)
[2019-06-10] MEDS: ROCEPHIN 1 GM in NS 50 ML IV SCH (20:14)
[2019-06-10] MEDS: CRESTOR PO SCH (20:15)
[2019-06-11] MEDS: PROTONIX PO SCH (06:07)
[2019-06-11] MEDS: LOVENOX SUBQ SCH (06:07)
[2019-06-11] MEDS: CARAFATE PO SCH ×2 (06:07→11:18)
[2019-06-11] MEDS: HUMULIN R SUBQ SCH ×2 (06:11→11:21)
--- NOTE | 2019-06-11 06:50 | DISCHARGE SUMMARY ---
ADMISSION DATE: 06/06/2019 DISCHARGE DATE: 06/11/2019 FINAL DISCHARGE DIAGNOSES: 1. Acute exacerbation of chronic obstructive pulmonary disease secondary to bronchitis. 2. Acute hypercarbic respiratory failure. 3. History of breast cancer. 4. Hypertension. 5. Gastritis and reflux disease. 6. Spasticity of both the legs. 7. Lho-ffiqajg-fgpttrjdz diabetes mellitus. 8. Hyperlipidemia. 9. History of osteoporosis. 10. Bronchiectasis. 11. Vitamin D deficiency. 12. Situational depression. HISTORY: Ms. Macias is an 79-year-old female patient admitted with chest congestion, cough, wheezing, and increasing shortness of breath, not responding to her bronchodilator treatment and outpatient treatment. Her oral intake was poor. When she came to the emergency room, her O2 saturation was low. The patient does have history of COPD and chronic respiratory failure. The patient evaluated in the emergency room. Admitted for further care. HOSPITAL COURSE: Patient was treated with IV antibiotics and pulmonary toilet. Steroid symptomatic treatment. Her clinical condition gradually improved. Shortness of breath and cough improved. Oral intake improved. The patient did have constipation which we treated symptomatically. Overall, the patient received maximum benefit of hospitalization. The patient is eager to go home, and I will discharge her home today on tapering dose of steroid, oral antibiotics. Continue bronchodilator treatment and home medicines. We will resume her home health. Follow up with me in 1 week. OBJECTIVE: Vital Signs: As noted. Neck: Supple. No JVD. Lungs: Bibasilar crepitations and occasional wheezing. CVS: S1 and S2 heard. Abdomen: Soft, nontender. Bowel sounds present. [employer]: Alert and awake answering questions fair. Spasticity both legs. LABORATORY DATA: Revealed WBC count 8.55, hemoglobin 12.5, hematocrit 40.1, and platelet count 238,000. Electrolytes were fairly benign. Accu-Chek results reviewed. Troponin was negative. Urine culture was no growth. Initial chest x-ray was negative. ASSESSMENT AND PLAN: I had a lengthy discussion with the patient about discharge planning. The patient understood and agreed. I am discharging her on doxycycline, Protonix, vitamin D3 5000 international units daily. Norvasc. She will continue her benazepril, prednisone in tapering dose. Home health to do blood work on 06/17. In case of more distress, call us back or go to emergency room. cc: Mike Gonsalves MD
[2019-06-11] MEDS: MUCOMYST 20% INH SCH (07:42)
[2019-06-11] MEDS: DUONEB (A & A) INH SCH ×2 (07:42→11:18)
[2019-06-11] MEDS: GLUCOPHAGE PO SCH (08:54)
[2019-06-11] MEDS: LIORESAL PO SCH (08:55)
[2019-06-11] MEDS: LEXAPRO PO SCH (08:55)
[2019-06-11] MEDS: DOXYCYCLINE PO SCH (08:55)
[2019-06-11] MEDS: NORVASC PO SCH (08:55)
[2019-06-11] MEDS: JANUVIA PO SCH (08:57)
[2019-06-11] MEDS: FEMARA PO SCH (08:57)
[2019-06-11] MEDS: NEURONTIN PO SCH (08:58)
[2019-06-11] MEDS: LOTENSIN PO SCH (08:58)
[2019-06-11] MEDS: CALTRATE 600 + D PO SCH (08:58)
[2019-06-11] MEDS ORDERED: PREDNISONE PO SCH (09:00)
[2019-06-11] MEDS: VITAMIN D PO SCH (09:00)
[2019-06-11 11:05] VITALS: BP 140/62
--- NOTE | 2019-06-18 06:31 | DISCHARGE SUMMARY ---
ADMISSION DATE: 06/06/2019 DISCHARGE DATE: 06/11/2019 DISCHARGE SUMMARY ADDENDUM: Reviewing her weight loss, low albumin level, patient is appropriate for protein calorie malnutrition. Patient does have chronic hypercarbic respiratory failure, bronchiectasis and she does have COPD exacerbation. cc: Mike Gonsalves MD
== END 2019-06-11 12:57 | disposition home health service (06) | DRG 191 ==
LOC: SUPCPDRO → ED 18:38 → 1N 20:24
PROVIDERS: ADMIT Internal Medicine; ATTEND Internal Medicine